=== PATIENT | female | born 1970 | race Caucasian/White ===

== ENCOUNTER 2016-07-28 12:34 | Inpatient (IN) | payer OTHER ==
[2016-07-28 14:00] LABS: EOSINOPHIL 3.2 % (0-4.5); MCHC 27.7 g/dl (32.0-36.0); MEAN CELL VOLUME 58.9 fl (80-96); MEAN PLT VOLUME 9.4 fl (7.5-11.1); NEUTROPHILS 72.1 % (42.8-82.8); PLATELET COUNT 150 K/MM3 (134-434); RDW 19.5 % (11.6-15.6)
[2016-07-28 14:04] LABS: MCH 16.3 pg (25.7-33.7)
[2016-07-28 14:13] LABS: ALBUMIN 3.1 g/dl (3.4-5.0); ANION GAP 9 (8-16); BILIRUBIN,TOTAL 0.4 mg/dL (0.2-1.0); CO2 26 mmol/L (21-32); CREATININE 0.6 mg/dL (0.55-1.02); GLUCOSE,RANDOM 96 mg/dL (74-106); SGOT/AST 17 U/L (15-37); SGPT/ALT 12 U/L (12-78); TOT PROT 6.6 g/dl (6.4-8.2)
[2016-07-28 14:16] LABS: ALK PHOS 96 U/L (45-117)
[2016-07-28 14:19] LABS: INR 1.15 (0.82-1.09); PROTHROMBIN TIME (PATIENT) 12.7 SEC (9.98-11.88)
--- NOTE | 2016-07-28 14:21 | PDOC ---
History of Present Illness <Cesia Mendez - Last Filed: 07/28/16 14:26> - History of Present Illness Initial Comments: 07/28/16 14:26 - History of Present Illness Initial Comments: 07/28/16 14:24 The patient is a 46 year old female with a past medical hx of PCOS and heavy menses who presents to the ED complaining of heavy vaginal bleeding since 07/02 and lightheadedness since yesterday. The patient reports she was in the shower yesterday when she felt as if she was going to pass out. She states she stepped out of the shower and was walking to the kitchen to drink some fluids when she had a syncopal episode. She denies hitting her head. She reports she has been feeling lightheaded, dizzy, dyspnea on exertion. She states she is unable to walk short distances without feeling these symptoms.The patient reports she was seen in the ED one year ago for similar symptoms and required a blood transfusion. The patient denies chest pain, palpitations The patient denies fever, chills The patient denies nausea, vomiting, diarrhea She denies any other complaints at this time, and the remainder the review of systems is negative <Cesia Mendez - Last Filed: 07/28/16 14:25> <Genny Chiang - Last Filed: 07/28/16 14:31> - General Chief Complaint: Syncope/Near Syncope Stated Complaint: VAG BLEEDING Time Seen by Provider: 07/28/16 14:07 Past History <Cesia Mendez - Last Filed: 07/28/16 14:26> - Past Medical History Anemia: Yes Asthma: Yes Disorders: Yes (POLYCYSTIC OVARIAN SYNDROME) Psychiatric Problems: Yes (PANIC ATTACKS, DEPRESSION) - Surgical History Cholecystectomy: Yes GI Surgery: Yes (sleeve) - Reproductive History Is Patient Now?: No Dysfunctional Uterine Bleeding: Yes Polycystic Ovaries: Yes - Immunization History Immunization Up to Date: Yes - Psycho/Social/Smoking Cessation Hx Anxiety: No Suicidal Ideation: No Smoking History: Never smoked Have you smoked in the past 12 months: No Number of Cigarettes Smoked Daily: 0 Information on smoking cessation initiated: No Hx Alcohol Use: No Drug/Substance Use Hx: No Substance Use Type: None <Genny Chiang - Last Filed: 07/28/16 14:31> - Past Medical History Allergies/Adverse Reactions: Allergies Allergy/AdvReac Type Severity Reaction Status Date / Time shellfish derived Allergy Severe Difficulty Verified 06/15/15 09:17 Breathing Review of Systems - Review of Systems Able to Perform ROS?: Yes Comments:: 07/28/16 14:24 Remainder of the review of systems is negative - HPI 12 point review of systems is as per history of present illness and otherwise negative <PallaviantonioCesia - Last Filed: 07/28/16 14:26> *Physical Exam - Vital Signs Last Vital Signs Temp Pulse Resp BP Pulse Ox 98 F 76 20 106/52 97 07/28/16 12:37 07/28/16 12:37 07/28/16 12:37 07/28/16 12:37 07/28/16 12:37 <PallaviantonioCesia - Last Filed: 07/28/16 14:26> - Vital Signs Last Vital Signs Temp Pulse Resp BP Pulse Ox 98 F 76 20 106/52 97 07/28/16 12:37 07/28/16 12:37 07/28/16 12:37 07/28/16 12:37 07/28/16 12:37 - Physical Exam Comments: 07/28/16 14:17 Physical exam Last Vital Signs Temp Pulse Resp BP Pulse Ox 98 F 76 20 106/52 97 07/28/16 12:37 07/28/16 12:37 07/28/16 12:37 07/28/16 12:37 07/28/16 12:37 GENERAL: The patient is awake, alert, and fully oriented, and in no apparent distress. Patient is pale HEAD: Normal with no signs of trauma. EYES: Conjunctiva pale ENT: Because membranes moist NECK: Normal range of motion, supple LUNGS: Breath sounds equal, clear to auscultation bilaterally. No wheezes, and no crackles. HEART: Regular rate and rhythm, normal S1 and S2 without murmur, rub or gallop. ABDOMEN: Soft, nontender, normoactive bowel sounds. No guarding, no rebound. No masses appreciated. EXTREMITIES: Normal range of motion, no edema. No clubbing or cyanosis. No cords, erythema, or tenderness. NEUROLOGICAL: Cranial nerves II through XII grossly intact. Normal speech, normal gait. PSYCH: Normal mood, normal affect. SKIN: Warm, Dry, normal turgor, no rashes or lesions noted. <Genny Chiang - Last Filed: 07/28/16 14:31> ED Treatment Course - LABORATORY CBC & Chemistry Diagram: 07/28/16 13:40 07/28/16 13:40 - ADDITIONAL ORDERS Additional order review: Laboratory Results 07/28/16 07/28/16 13:40 13:40 Sodium 140 Potassium 4.1 Chloride 105 Carbon Dioxide 26 Anion Gap 9 BUN 13 Creatinine 0.6 Creat Clearance w eGFR > 60 Random Glucose 96 Calcium 8.0 L Total Bilirubin 0.4 D AST 17 D ALT 12 Alkaline Phosphatase 96 Total Protein 6.6 Albumin 3.1 L Beta HCG, Quant < 1.0 Crossmatch See Detail 07/28/16 13:40 RBC 2.89 L D MCV 58.9 L MCHC 27.7 L RDW 19.5 H D MPV 9.4 Neutrophils % 72.1 D Lymphocytes % 16.3 D Monocytes % 7.4 Eosinophils % 3.2 Basophils % 1.0 <Cesia Mendez - Last Filed: 07/28/16 14:26> - LABORATORY CBC & Chemistry Diagram: 07/28/16 13:40 07/28/16 13:40 - ADDITIONAL ORDERS Additional order review: Laboratory Results 07/28/16 13:40 Sodium 140 Potassium 4.1 Chloride 105 Carbon Dioxide 26 Anion Gap 9 BUN 13 Creatinine 0.6 Creat Clearance w eGFR > 60 Random Glucose 96 Calcium 8.0 L Total Bilirubin 0.4 D AST 17 D ALT 12 Total Protein 6.6 Albumin 3.1 L 07/28/16 13:40 RBC 2.89 L D MCV 58.9 L MCHC 27.7 L RDW 19.5 H D MPV 9.4 Neutrophils % 72.1 D Lymphocytes % 16.3 D Monocytes % 7.4 Eosinophils % 3.2 Basophils % 1.0 <Genny Chiang - Last Filed: 07/28/16 14:31> Medical Decision Making - Medical Decision Making 07/28/16 14:18 46-year-old female with a past medical history of PCO S with very heavy irregular menses She states that she has required blood transfusions in the past for severe anemia, most recently one year ago 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 [facility] She states that she has had heavy vaginal bleeding since early June She states that she was feeling like she was getting very anemic again, and has had dyspnea on exertion and weakness Yesterday after a shower, she passed out, but did not bang her head She denies any chest pain or palpitations She also has a URI recently She states that she feels like she is getting to the point where she needs a transfusion again Laboratory Results - last 24 hr 07/28/16 07/28/16 07/28/16 13:40 13:40 13:40 WBC 6.0 D RBC 2.89 L D Hgb 4.7 L* D Hct 17.0 L D MCV 58.9 L MCHC 27.7 L RDW 19.5 H D Plt Count 150 MPV 9.4 Neutrophils % 72.1 D Lymphocytes % 16.3 D Monocytes % 7.4 Eosinophils % 3.2 Basophils % 1.0 Sodium 140 Potassium 4.1 Chloride 105 Carbon Dioxide 26 Anion Gap 9 BUN 13 Creatinine 0.6 Creat Clearance w eGFR > 60 Random Glucose 96 Calcium 8.0 L Total Bilirubin 0.4 D AST 17 D ALT 12 Alkaline Phosphatase 96 Total Protein 6.6 Albumin 3.1 L Beta HCG, Quant < 1.0 Crossmatch See Detail Hb 4.7 !! 3 units of PRBCs ordered 07/28/16 14:30 EKG Normal sinus rhythm 73, normal axis Normal AV and IV conduction time Normal QTC Essentially normal EKG Impression-severe anemia and syncope due to heavy vaginal bleeding <Genny Chiang - Last Filed: 07/28/16 14:31> *DC/Admit/Observation/Transfer - Attestations Scribe Attestion: 07/28/16 14:24 Documentation prepared by Cesia Mendez, acting as director medical economics for Genny Chiang MD/DO. <Cesia Mendez - Last Filed: 07/28/16 14:26> - Discharge Dispostion Admit: Yes <Genny Chiang - Last Filed: 07/28/16 14:31> Diagnosis at time of Disposition: Severe anemia, Menorrhagia, Syncope
--- NOTE | 2016-07-28 16:05 | EKG ---
Test Reason : Blood Pressure : / mmHG Vent. Rate : 073 BPM Atrial Rate : 073 BPM P-R Int : 108 ms QRS Dur : 086 ms QT Int : 386 ms P-R-T Axes : 044 036 033 degrees QTc Int : 425 ms SINUS RHYTHM WITH SHORT TN OTHERWISE NORMAL ECG NO PREVIOUS ECGS AVAILABLE Confirmed by FANI SANON MD ([id number]) on 07/28/2016 4:04:34 PM Referred By: Confirmed By:FANI SANON MD
[2016-07-28 17:22] VITALS: BMI 43.8
[2016-07-28 17:47] LABS: ANISOCYTOSIS 1+; HYPOCHROMIA 3+; MICROCYTOSIS 3+
--- NOTE | 2016-07-28 18:39 | HP ---
CHIEF COMPLAINT: PCP: [facility] OBGYN : DR white HISTORY OF PRESENT ILLNESS: 46 YF y/o Significant PMH PCOS, Menorragia on Depo (Last shot 06/2015), gastric sleeve 2014 with 190lb weight loss, presents to ER with complaints of syncope. patient reports being in shower when felt dizzy, sob, palpitations, diaphoretic walked to the kitchen and LOC. patient recalls fall, pre fall, and post fall, LOC for seconds, not hit her head. patient reports 3 weeks of vaginal bleeding "episode". Stats that her cycles comes with pain and feel hormonally off. is been using to overnight pads every 2-3/hour with clots and mild cramping. requiring Depo-Provera injections which abates the vaginal bleed for one year. patient report gets these episodes annually when the shot is the depo is wearing off. while on Depo-she report more regular periods although still have 2-3 pads per hour with shorter duration (5 days) and no clots. patient Patient was seen by her FLOORLEADER was prescribed Provera which did not resolve the vaginal bleed since that time. Patient states [facility] FLOORLEADER doctor was not able to provide Depo-Provera which is what instigated patient's return to this emergency department. was seen last year for same symptoms Mamadou's (06/15/15)transfused with 2 units PRBC and recommended depo injection. currently reports SOB. denies dizziness, CP, N/V/D/C, fevers, chills, nausea, change in vision, abdominal pain, headache , focal neurological weakness. to note: reached menarche at 10 years of age, menorrgia started in 20's, baseline HB 9. ER course was notable for: (1)Hb 4.7, normal sinus EKG no st t wave changes (2)neg B HCG, Recent Travel: PAST MEDICAL HISTORY: PCOS, no known history of fibroids?, PAST SURGICAL HISTORY: c section, dnC's Social History: Smoking:no Alcohol:occasional Drugs: no Family History: Allergies: NKDA shellfish derived Allergy (Severe, Verified 07/28/16 15:07) Difficulty Breathing HOME MEDICATIONS: Home Medications Medication Instructions Recorded Ascorbate Calcium [Vitamin C] 1,000 mg PO DAILY 07/28/16 Biotin 1 mg PO DAILY 07/28/16 Cholecalciferol (Vitamin D3) 800 unit PO DAILY 07/28/16 [Vitamin D3 -] Multivitamins [Tab-A-Vit -] 1 tab PO DAILY 07/28/16 REVIEW OF SYSTEMS CONSTITUTIONAL: generalized weakness, weight change Absent: fever, chills, diaphoresis, malaise, loss of appetite, HEENT: Absent: rhinorrhea, nasal congestion, throat pain, throat swelling, difficulty swallowing, mouth swelling, ear pain, eye pain, visual changes CARDIOVASCULAR: syncope,lightheadedness, Absent: chest pain, palpitations, irregular heart rate, peripheral edema RESPIRATORY: shortness of breath, Absent: cough, dyspnea with exertion, orthopnea, wheezing, stridor, hemoptysis GASTROINTESTINAL: Absent: abdominal pain, abdominal distension, nausea, vomiting, diarrhea, constipation, melena, hematochezia GENITOURINARY: Absent: dysuria, frequency, urgency, hesitancy, hematuria, flank pain, genital pain MUSCULOSKELETAL: Absent: myalgia, arthralgia, joint swelling, back pain, neck pain SKIN: Absent: rash, itching, pallor HEMATOLOGIC/IMMUNOLOGIC: Absent: easy bleeding, easy bruising, lymphadenopathy, frequent infections ENDOCRINE: Absent: unexplained weight gain, unexplained weight loss, heat intolerance, cold intolerance NEUROLOGIC: Absent: headache, focal weakness or paresthesias, dizziness, unsteady gait, seizure, mental status changes, bladder or bowel incontinence PSYCHIATRIC: Absent: anxiety, depression, suicidal or homicidal ideation, hallucinations. PHYSICAL EXAMINATION Vital Signs - 24 hr 07/28/16 07/28/16 07/28/16 15:19 16:12 17:08 Temperature 97.7 F 97.7 F Pulse Rate 73 73 Pulse Rate [ 79 Apical] Respiratory 18 20 20 Rate Blood Pressure 103/61 103/61 Blood Pressure 105/69 [Right Arm] O2 Sat by Pulse 99 100 99 Oximetry (%) GENERAL: Awake, alert, and fully oriented, in no acute distress, sitting up comfortably, on the telephone HEAD: Normal with no signs of trauma. EYES: Pupils equal, round and reactive to light, extraocular movements intact, sclera anicteric, conjunctiva clear. No lid lag. EARS, NOSE, THROAT: Ears normal, nares patent, oropharynx clear without exudates. Moist mucous membranes. NECK: Normal range of motion, supple without lymphadenopathy, JVD, or masses. LUNGS: Breath sounds equal, clear to auscultation bilaterally. No wheezes, and no crackles. No accessory muscle use. HEART: Regular rate and rhythm, normal S1 and S2 without murmur, rub or gallop. ABDOMEN: large Obese, Soft, nontender, not distended, normoactive bowel sounds, no guarding, no rebound, no masses. No hepatomegaly or splenomegaly. MUSCULOSKELETAL: Normal range of motion at all joints. No bony deformities or tenderness. No CVA tenderness. LOWER EXTREMITIES: 2+ pulses, warm, well-perfused. No calf tenderness. No peripheral edema. NEUROLOGICAL: Cranial nerves II-XII intact. Normal speech. PSYCHIATRIC: Cooperative. Good eye contact. Appropriate mood and affect. SKIN: Warm, dry, normal turgor, no rashes or lesions noted. ASSESSMENT/PLAN: 46 YF y/o Significant PMH PCOS, Menorragia on Depo (Last shot 06/2015), gastric sleeve 2014 with 190lb weight loss, presents to ER with complaints of syncope and heavy menses, found to have severe anemia. Acute Severe anemia: Hb 4.7, no symptoms other than SOB, 2/2 to menorrhagia. Type and screen PRBC 3 units, with protocol Vitals q2 hours large bore IV UA Chronic Menorrhagia Pad count OBGYN consult will Consider Vaginal US, pelvic US awaiting FLOORLEADER input on depo inj or further treatment or procedures Syncope 2/2 to Menorrhagia currently asymptomatic, vital normal, FEN regular diet oral hydration replete electrolytes as needed. dispo: med surge will evaluate in AM. Visit type - Emergency Visit Emergency Visit: Yes ED Registration Date: 07/28/16 Care time: The patient presented to the Emergency Department on the above date and was hospitalized for further evaluation of their emergent condition. - New Patient This patient is new to me today: Yes Date on this admission: 07/28/16 - Critical Care Critical Care patient: No
--- NOTE | 2016-07-28 19:08 | PN ---
Teaching Attending Note Name of Resident: Marin Tao ATTENDING PHYSICIAN STATEMENT I saw and evaluated the patient. I reviewed the resident's note and discussed the case with the resident. I agree with the resident's findings and plan as documented. SUBJECTIVE: This is a 46-year-old woman with a history of menorrhagia, PCOS, anemia who comes to the ER complaining of dizziness, palpitations, shortness of breath. She has a history of anemia and says once a year she requires transfusion. OBJECTIVE: Vital Signs Period Temp Pulse Resp BP Sys/Rodriguez Pulse Ox Last 24 Hr 97.7 F-98 F 73-79 18-20 103-106/52-69 97-100 HEART: S1 S2, RRR LUNGS: Clear ABDOMEN: Obese, soft, non-tender, non-distended, normal BS EXTREMITIES: No edema ASSESSMENT AND PLAN: This is a 46-year-old woman with a history of anemia, menorrhagia, PCOS, obesity , gastric sleeve who comes to the ER with dizziness, palpitations, shortness of breath. 1. Acute blood loss anemia secondary to menorrhagia on chronic anemia - Patient is symptomatic with dizziness, shortness of breath - Transfuse 3 units PRBCs - Monitor hemoglobin - Shipmaster consult for menorrhagia 2. Syncope secondary to severe anemia 3. Polycystic ovarian disease
[2016-07-28] MEDS ORDERED: ALPRAZolam 0.25 MG TABLET PO ONE (20:28)
--- NOTE | 2016-07-28 21:17 | CON.OBG ---
Consult Consult Specialty:: pediatric dentist Reason for Consultation:: menometrorrhagia, anemia - History of Present Illness Chief Complaint: vaginal bleeding History of Present Illness: 46 yo f with hx of prolonged vaginal bleeding for more than a month, paxton was admitted for sever anemia, with dizziness and syncope, she has been Depoprovera on and off which has controlled her bleeding, states hr senior technical architect declined to give her depo , hx of gastric sleeves, with significant wt loss - History Source History Provided By: Patient Limitations to Obtaining History: No Limitations - Past Medical History Pulmonary: Yes: Asthma ...LMP: 07/02/16 ...: No Heme/Onc: Yes: Anemia - Past Surgical History Additional Surgical History: gastric sleeves - Alcohol/Substance Use Hx Alcohol Use: No - Smoking History Smoking history: Never smoked Have you smoked in the past 12 months: No Aproximately how many cigarettes per day: 0 - Social History History of Recent Travel: No Home Medications - Allergies Allergies/Adverse Reactions: Allergies Allergy/AdvReac Type Severity Reaction Status Date / Time shellfish derived Allergy Severe Difficulty Verified 07/28/16 15:07 Breathing - Home Medications Home Medications: Ambulatory Orders Ascorbate Calcium [Vitamin C] 1,000 mg PO DAILY 07/28/16 Biotin 1 mg PO DAILY 07/28/16 Cholecalciferol (Vitamin D3) [Vitamin D3 -] 800 unit PO DAILY 07/28/16 Multivitamins [Tab-A-Vit -] 1 tab PO DAILY 07/28/16 Review of Systems - Review of Systems Constitutional: reports: Weakness Eyes: reports: No Symptoms HENT: reports: No Symptoms Neck: reports: No Symptoms Cardiovascular: reports: No Symptoms Respiratory: reports: SOB Genitourinary: reports: No Symptoms, Vaginal Bleeding Breasts: reports: No Symptoms Reported Musculoskeletal: reports: No Symptoms Integumentary: reports: No Symptoms Neurological: reports: No Symptoms Endocrine: reports: No Symptoms Hematology/Lymphatic: reports: No Symptoms Psychiatric: reports: No Symptoms Physical Exam-GROUNDWATER CONSULTANT Vital Signs: Vital Signs Temperature 97.7 F 07/28/16 17:08 Pulse Rate 73 07/28/16 17:08 Respiratory Rate 20 07/28/16 17:08 Blood Pressure 103/61 07/28/16 17:08 O2 Sat by Pulse Oximetry (%) 99 07/28/16 17:08 Constitutional: Yes: Obese Eyes: Yes: WNL HENT: Yes: WNL Neck: Yes: WNL Cardiovascular: Yes: WNL Respiratory: Yes: WNL Gastrointestinal: Yes: WNL, Soft, Abdomen, Obese Renal/: Yes: WNL Pelvis: Yes: WNL External Genitalia: Yes: Normal Vaginal Exam: Yes: Bleeding Cervix: Yes: Normal Uterus: Yes: Enlarged, Lumpy, Tender Adnexa: Not Palpable: Left, Right Assessment/Plan advise TVS, r/o myoma, check EM. D&C discussed. jatin expalined , advised d&c followed by caleb
[2016-07-28] MEDS ORDERED: ALBUTEROL SO4 2.5/IPRATROPIUM 0.5 INH SOL 3 ML VIAL.NEB. NEB PRN (22:18)
[2016-07-28] MEDS ORDERED: ALBUTEROL SO4 2.5/IPRATROPIUM 0.5 INH SOL 3 ML VIAL.NEB. NEB ONE (22:35)
[2016-07-29] MEDS ORDERED: ceFAZolin SODIUM 1 GM VIAL IVPB ONE
[2016-07-29 06:05] VITALS: TEMP 98.1
[2016-07-29 08:25] LABS: BASOPHIL 0.9 % (0-2.0); EOSINOPHIL 4.1 % (0-4.5); MCH 20.3 pg (25.7-33.7); MCHC 30.8 g/dl (32.0-36.0); MEAN CELL VOLUME 65.9 fl (80-96); MEAN PLT VOLUME 9.3 fl (7.5-11.1); NEUTROPHILS 66.6 % (42.8-82.8); PLATELET COUNT 117 K/MM3 (134-434); RDW 27.6 % (11.6-15.6); WHITE BLOOD COUNT 5.3 K/mm3 (4.0-10.0)
[2016-07-29 08:29] LABS: INR 1.15 (0.82-1.09); PROTHROMBIN TIME (PATIENT) 12.7 SEC (9.98-11.88)
[2016-07-29 08:31] LABS: ACTIVATED PTT 28.8 SECONDS (26.9-34.4)
[2016-07-29] MEDS ORDERED: ALBUTEROL SO4 0.083% IH SOL 2.5 MG/3 ML VIAL.NEB. NEB PRN (08:37)
[2016-07-29 10:18] LABS: MCH 20.3 pg (25.7-33.7); MCHC 30.7 g/dl (32.0-36.0); MEAN CELL VOLUME 66.1 fl (80-96); MEAN PLT VOLUME 9.7 fl (7.5-11.1); PLATELET COUNT 125 K/MM3 (134-434); RDW 26.8 % (11.6-15.6); WHITE BLOOD COUNT 5.6 K/mm3 (4.0-10.0)
[2016-07-29 10:49] LABS: CALCIUM 7.9 mg/dL (8.5-10.1); CREATININE 0.5 mg/dL (0.55-1.02)
[2016-07-29 11:11] LABS: URINE APPEARANCE SLCLOUDY; URINE BILIRUBIN NEGATIVE (NEGATIVE); URINE COLOR YELLOW; URINE GLUCOSE (UA) NEGATIVE (NEGATIVE); URINE KETONE NEGATIVE (NEGATIVE); URINE NITRITE POSITIVE (NEGATIVE); URINE UROBILINOGEN 2.0 E.U/dl E.U./dl (0.2-1.0)
[2016-07-29 11:20] LABS: URINE BLOOD 3+ (NEGATIVE); URINE LEUK ESTERASE TRACE (NEGATIVE); URINE PROTEIN 1+ (NEGATIVE)
[2016-07-29 11:40] LABS: URINE BACTERIA RARE /hpf (NONE SEEN); URINE MUCUS FEW; URINE RBC 40 /hpf (0-3); URINE WBC 3 /hpf (3-5)
--- NOTE | 2016-07-29 12:38 | PN ---
Physical Exam: SUBJECTIVE: Patient seen and examined thsi am. patient reports more energy and reports skin feels and looks much better, sob improved. denies fevers, chils,sob, palpitation, cp, n/v/d/c. patient reports that she has a history of asthma and currently has mild wheezing. patient is low risk for for intermediate risk procedure. she is medicably optimized for procedure. patietn to OR today for D&C OBJECTIVE: Vital Signs Period Temp Pulse Resp BP Sys/Rodriguez Pulse Ox Last 24 Hr 97.7 F-98.1 F 73-79 16-20 103-129/52-75 99-100 GENERAL: The patient is awake, alert, and fully oriented, in no acute distress. HEAD: Normal with no signs of trauma. EYES: PERRL, extraocular movements intact, sclera anicteric, conjunctiva clear. No ptosis. ENT: Ears normal, nares patent, oropharynx clear without exudates, moist mucous membranes. NECK: Trachea midline, full range of motion, supple. LUNGS: Breath sounds equal, clear to auscultation bilaterally, no wheezes, no crackles, no accessory muscle use. HEART: Regular rate and rhythm, S1, S2 without murmur, rub or gallop. ABDOMEN: Soft, nontender, nondistended, normoactive bowel sounds, no guarding, no rebound, no hepatosplenomegaly, no masses. EXTREMITIES: 2+ pulses, warm, well-perfused, no edema. NEUROLOGICAL: Cranial nerves II through XII grossly intact. Normal speech, gait not observed. PSYCH: Normal mood, normal affect. SKIN: Warm, dry, normal turgor, no rashes or lesions noted Laboratory Results - last 24 hr 07/28/16 07/29/16 07/29/16 18:30 06:45 07:00 WBC 5.3 RBC 3.22 L Hgb 6.6 L* D Hct 21.3 L D MCV 65.9 L MCHC 30.8 L RDW 27.6 H Plt Count 117 L D MPV 9.3 Neutrophils % 66.6 Lymphocytes % 18.7 Monocytes % 9.7 Eosinophils % 4.1 Basophils % 0.9 INR PTT (Actin FS) Sodium Potassium Chloride Carbon Dioxide Anion Gap BUN Creatinine Random Glucose Calcium Phosphorus Magnesium 2.0 Urine Color Yellow Urine Appearance Slcloudy Urine pH 6.0 Ur Specific [place] 1.025 Urine Protein 1+ H Urine Glucose (UA) Negative Urine Ketones Negative Urine Blood 3+ H Urine Nitrite Positive Urine Bilirubin Negative Urine Urobilinogen 2.0 e.u/dl H Ur Leukocyte Esterase Trace H Urine RBC 40 Urine WBC 3 Ur Epithelial Cells Rare Urine Bacteria Rare Urine Mucus Few 07/29/16 07/29/16 07/29/16 07:00 07:00 09:15 WBC 5.6 RBC 3.45 L Hgb 7.0 L Hct 22.8 L MCV 66.1 L MCHC 30.7 L RDW 26.8 H Plt Count 125 L MPV 9.7 Neutrophils % Lymphocytes % Monocytes % Eosinophils % Basophils % INR 1.15 H PTT (Actin FS) 28.8 Sodium Potassium Chloride Carbon Dioxide Anion Gap BUN Creatinine Random Glucose Calcium Phosphorus 3.0 Magnesium Urine Color Urine Appearance Urine pH Ur Specific [place] Urine Protein Urine Glucose (UA) Urine Ketones Urine Blood Urine Nitrite Urine Bilirubin Urine Urobilinogen Ur Leukocyte Esterase Urine RBC Urine WBC Ur Epithelial Cells Urine Bacteria Urine Mucus 07/29/16 09:15 WBC RBC Hgb Hct MCV MCHC RDW Plt Count MPV Neutrophils % Lymphocytes % Monocytes % Eosinophils % Basophils % INR PTT (Actin FS) Sodium 143 Potassium 4.1 Chloride 109 H Carbon Dioxide 26 Anion Gap 8 BUN 10 D Creatinine 0.5 L Random Glucose 80 Calcium 7.9 L Phosphorus Magnesium Urine Color Urine Appearance Urine pH Ur Specific [place] Urine Protein Urine Glucose (UA) Urine Ketones Urine Blood Urine Nitrite Urine Bilirubin Urine Urobilinogen Ur Leukocyte Esterase Urine RBC Urine WBC Ur Epithelial Cells Urine Bacteria Urine Mucus Active Medications Generic Name Dose Route Start Last Admin Trade Name Olga PRN Reason Stop Dose Admin Albuterol/Ipratropium 1 amp 07/28/16 22:18 Duoneb - NEB Q6H PRN SHORTNESS OF BREATH ASSESSMENT/PLAN: patient seen and examed-
[2016-07-29] MEDS ORDERED: medroxyPROGESTERone ACET 150 MG/1 ML VIAL IM ONE (14:11)
--- NOTE | 2016-07-29 14:18 | PN ---
Progress Note (short form) - Note Progress Note: patient taken to OR for D&C ,anesthesia declined to put her sleep because of asthma and wheezing, procedure was cancelled. will give one dose of depo to stop bleeding, importance [facility] andgetting tissue pathology r/o EM hyperplasia or cancer discussed. patient will make apt with her ob /byn in 2 weeks for follow up
[2016-07-29 14:30] VITALS: BP 144/72; PULSE 79
--- NOTE | 2016-07-29 14:48 | DS ---
Physical Exam: SUBJECTIVE:Patient seen and examined this am. patient reports more energy and reports skin feels and looks much better, sob improved. denies fevers, chils,sob, palpitation, cp, n/v/d/c. patient reports that she has a history of asthma and currently has mild wheezing. patient is low risk for for intermediate risk procedure. she is medicably optimized for procedure. patient taken to OR for D&C ,anesthesia declined to put her sleep because of asthma and wheezing, procedure was cancelled. OBGYN will give one dose of depo to stop bleeding. patient reports having a d&C at [facility], with biopsy being negative for neuplasia or cancer one to on and a half years ago. I discussed the importance of follow up with her library circulation department chief in [facility], to Getting tissue pathology r/o EM hyperplasia or cancer. we also discussed that she is at high risk of cancer as she is over weight and on hormone therapy. patient will make apt with her ob /byn in 2 weeks for follow up. OBJECTIVE: Vital Signs Period Temp Pulse Resp BP Sys/Rodriguez Pulse Ox Last 24 Hr 97.7 F-98.1 F 73-79 16-20 103-144/52-75 99-100 PHYSICAL EXAM GENERAL: Awake, alert, and fully oriented, in no acute distress, sitting up comfortably, HEAD: Normal with no signs of trauma. EYES: Pupils equal, round and reactive to light, extraocular movements intact, sclera anicteric, conjunctiva clear. No lid lag. EARS, NOSE, THROAT: Ears normal, nares patent, oropharynx clear without exudates. Moist mucous membranes. NECK: Normal range of motion, supple without lymphadenopathy, JVD, or masses. LUNGS: Breath sounds equal, clear to auscultation bilaterally. No wheezes, and no crackles. No accessory muscle use. HEART: Regular rate and rhythm, normal S1 and S2 without murmur, rub or gallop. ABDOMEN: large Obese, Soft, nontender, not distended, normoactive bowel sounds, no guarding, no rebound, no masses. No hepatomegaly or splenomegaly. MUSCULOSKELETAL: Normal range of motion at all joints. No bony deformities or tenderness. No CVA tenderness. LOWER EXTREMITIES: 2+ pulses, warm, well-perfused. No calf tenderness. No peripheral edema. NEUROLOGICAL: Cranial nerves II-XII intact. Normal speech. PSYCHIATRIC: Cooperative. Good eye contact. Appropriate mood and affect. SKIN: Warm, dry, normal turgor, no rashes or lesions noted. LABS Laboratory Results - last 24 hr 07/28/16 07/29/16 07/29/16 18:30 06:45 07:00 WBC 5.3 RBC 3.22 L Hgb 6.6 L* D Hct 21.3 L D MCV 65.9 L MCHC 30.8 L RDW 27.6 H Plt Count 117 L D MPV 9.3 Neutrophils % 66.6 Lymphocytes % 18.7 Monocytes % 9.7 Eosinophils % 4.1 Basophils % 0.9 INR PTT (Actin FS) Sodium Potassium Chloride Carbon Dioxide Anion Gap BUN Creatinine Random Glucose Calcium Phosphorus Magnesium 2.0 Urine Color Yellow Urine Appearance Slcloudy Urine pH 6.0 Ur Specific [place] 1.025 Urine Protein 1+ H Urine Glucose (UA) Negative Urine Ketones Negative Urine Blood 3+ H Urine Nitrite Positive Urine Bilirubin Negative Urine Urobilinogen 2.0 e.u/dl H Ur Leukocyte Esterase Trace H Urine RBC 40 Urine WBC 3 Ur Epithelial Cells Rare Urine Bacteria Rare Urine Mucus Few 07/29/16 07/29/16 07/29/16 07:00 07:00 09:15 WBC 5.6 RBC 3.45 L Hgb 7.0 L Hct 22.8 L MCV 66.1 L MCHC 30.7 L RDW 26.8 H Plt Count 125 L MPV 9.7 Neutrophils % Lymphocytes % Monocytes % Eosinophils % Basophils % INR 1.15 H PTT (Actin FS) 28.8 Sodium Potassium Chloride Carbon Dioxide Anion Gap BUN Creatinine Random Glucose Calcium Phosphorus 3.0 Magnesium Urine Color Urine Appearance Urine pH Ur Specific [place] Urine Protein Urine Glucose (UA) Urine Ketones Urine Blood Urine Nitrite Urine Bilirubin Urine Urobilinogen Ur Leukocyte Esterase Urine RBC Urine WBC Ur Epithelial Cells Urine Bacteria Urine Mucus 07/29/16 09:15 WBC RBC Hgb Hct MCV MCHC RDW Plt Count MPV Neutrophils % Lymphocytes % Monocytes % Eosinophils % Basophils % INR PTT (Actin FS) Sodium 143 Potassium 4.1 Chloride 109 H Carbon Dioxide 26 Anion Gap 8 BUN 10 D Creatinine 0.5 L Random Glucose 80 Calcium 7.9 L Phosphorus Magnesium Urine Color Urine Appearance Urine pH Ur Specific [place] Urine Protein Urine Glucose (UA) Urine Ketones Urine Blood Urine Nitrite Urine Bilirubin Urine Urobilinogen Ur Leukocyte Esterase Urine RBC Urine WBC Ur Epithelial Cells Urine Bacteria Urine Mucus HOSPITAL COURSE: Date of Admission:07/28/16 Date of Discharge: 07/29/16 46 YF y/o Significant PMH PCOS, Menorragia on Depo (Last shot 06/2015), gastric sleeve 2014 with 190lb weight loss, presents to ER with complaints of syncope. patient reports being in shower when felt dizzy, sob, palpitations, diaphoretic walked to the kitchen and LOC. patient recalls fall, pre fall, and post fall, LOC for seconds, not hit her head. patient reports 3 weeks of vaginal bleeding "episode". Stats that her cycles comes with pain and feel hormonally off. is been using to overnight pads every 2-3/hour with clots and mild cramping. requiring Depo-Provera injections which abates the vaginal bleed for one year. patient report gets these episodes annually when the shot is the depo is wearing off. while on Depo-she report more regular periods although still have 2-3 pads per hour with shorter duration (5 days) and no clots. patient Patient was seen by her [employer] was prescribed Provera which did not resolve the vaginal bleed since that time. Patient [facility] [employer] doctor was not able to provide Depo-Provera which is what instigated patient's return to this emergency department. was seen last year for same symptoms [facility] (06/15/15)transfused with 2 units PRBC and recommended depo injection. currently reports SOB. denies dizziness, CP, N/V/D/C, fevers, chills, nausea, change in vision, abdominal pain, headache , focal neurological weakness. to note: reached menarche at 10 years of age, menorrgia started in 20's, baseline HB 9. 46 YF y/o Significant PMH PCOS, Menorragia on Depo (Last shot 06/2015), gastric sleeve 2014 with 190lb weight loss, presents to ER with complaints of syncope and heavy menses, found to have severe anemia. pateint found to have Syncope 2/ 2 to Acute Severe anemia 2/2 Chronic Menorrhagia Hb 4.7, no symptoms other than SOB, 2/2 to menorrhagia. patient was transfues 3 units of PRBC HB increased to 7. patient reports that she has a history of asthma and currently has mild wheezing. patient is low risk for for intermediate risk procedure. she is medicably optimized for procedure. patient taken to OR for D&C ,anesthesia declined to put her sleep because of asthma and wheezing, procedure was cancelled. OBGYN will gave one dose of depo to stop bleeding. patient reports having a d&C at [facility], with biopsy being negative for neuplasia or cancer one to on and a half years ago. I discussed the importance of follow up with her ob/ coil builder in [facility] [place], to Getting tissue pathology r/o EM hyperplasia or cancer. we also discussed that she is at high risk of cancer as she is over weight and on hormone therapy. patient will make apt with her ob /byn in 2 weeks for follow up. pateint d/c home and is currently asymptomatic, vital normal, no fevers chills, N/v/d/C, cP, SOB, FOCAL NEUROLOGICAL DEFICIT. Minutes to complete discharge: 35 Discharge Summary Reason For Visit: MENORRHAGIA,SEVERE ANEMIA,SYNCOPE Current Active Problems Menorrhagia (Acute) Severe anemia (Acute) Syncope (Acute) Condition: Stable - Instructions Diet, Activity, Other Instructions: You are being discharged home. Please call and follow up with your primary care provider in one week to assess your health. Please call and follow up with your [employer] at [facility] or any other OBGYN of your choice to in two week. I included a Dr Willingham's information you can contact him as well. you were given one dose of depo to stop bleeding. as per our discussion that you are at higher risk of cancer as you are over weight and on hormone therapy. you reported you have had a d&C at [facility], with biopsy being negative for neuplasia or cancer about one to on and a half years ago. it is imperative that you call and see your OBGYN, as per our discussion it is very importance of follow up with her library circulation department chief, to Getting another tissue pathology to rule out EM hyperplasia or cancer. Please take over the counter Tylenol as directed for pain. please take your medications as prescribed. Please reports to the ER or the nearest ER if you have any persistent and worsening symptoms, chest pain, palpitation, fevers, chills, night sweats, Nausea, Vomiting, severe headache dizziness or loss of consciousness. Referrals: Kirt Beard MD [Staff Physician] - 2 Weeks Disposition: HOME - Home Medications Comprehensive Discharge Medication List: Ambulatory Orders Ascorbate Calcium [Vitamin C] 1,000 mg PO DAILY 07/28/16 Biotin 1 mg PO DAILY 07/28/16 Cholecalciferol (Vitamin D3) [Vitamin D3 -] 800 unit PO DAILY 07/28/16 Multivitamins [Tab-A-Vit -] 1 tab PO DAILY 07/28/16 This patient is new to me today: Yes Date on this admission: 07/29/16 Emergency Visit: No Critical Care patient: No - Discharge Referral Referred to [facility] Med P.C.: No
== END 2016-07-29 17:31 | disposition home or self-care (01) | DRG 812 ==
LOC: JER 12:34 → JERBED 14:39 → J6S 16:00
PROVIDERS: ADMIT Internal Medicine; ATTEND Internal Medicine
PROC: 30233N1 Transfusion of Nonautologous Red Blood Cells into Peripheral Vein, Percutaneous Approach (ICD-10-PCS; principal; 2016-07-28)
DX: D62 Acute posthemorrhagic anemia (principal); Z68.41 Body mass index [BMI] 40.0-44.9, adult; N92.0 Excessive and frequent menstruation with regular cycle; E28.2 Polycystic ovarian syndrome; J45.909 Unspecified asthma, uncomplicated; E66.9 Obesity, unspecified; Z53.09 Procedure and treatment not carried out because of other contraindication; Z98.84 Bariatric surgery status
CPT/HCPCS: 36415; 36430; 76830-TC; 80048; 80053; 81003; 81015; 83735; 84100; 84702; 85025; 85027; 85610; 85730; 86850; 86900; 86901; 86922; 93005; 93010; 94640; 99285-25; P9058

== ENCOUNTER 2016-08-30 22:49 | Emergency (ER) | payer OTHER ==
[2016-08-30 23:12] VITALS: BP 100/74; PULSE 69; TEMP 98.1; BMI 44.4
--- NOTE | 2016-08-31 00:40 | PDOC ---
History of Present Illness <Beatrice Rangel - Last Filed: 08/31/16 00:40> - General History Source: Patient Exam Limitations: No Limitations - History of Present Illness Initial Comments: 08/31/16 00:41 Patient is a 46 year old female with a significant past medical history of PCOS who presents to the ED with right hand pain and swelling. Patient notes that she was in [facility] as a box 14x14 containing a chair fell from top shelf and she was able to move out of the way but her hand was caught in the fall of the box. She reports right thumb pain and knuckle swelling. Patient notes her LMP was 08/06/16. She denies fever, chills, nausea, vomiting, diarrhea, vision changes, headache, blurry vision. <Winnie Haque - Last Filed: 08/31/16 00:46> - General Chief Complaint: Injury Stated Complaint: INJURY Time Seen by Provider: 08/30/16 23:01 Past History - Past Medical History Anemia: Yes Asthma: Yes Disorders: Yes (POLYCYSTIC OVARIAN SYNDROME) Psychiatric Problems: Yes (PANIC ATTACKS, DEPRESSION) - Surgical History Cholecystectomy: Yes GI Surgery: Yes (sleeve) - Reproductive History Dysfunctional Uterine Bleeding: Yes Polycystic Ovaries: Yes - Immunization History Immunization Up to Date: Yes - Psycho/Social/Smoking Cessation Hx Anxiety: No Suicidal Ideation: No Smoking History: Never smoked Have you smoked in the past 12 months: No Number of Cigarettes Smoked Daily: 0 Information on smoking cessation initiated: No Hx Alcohol Use: No Drug/Substance Use Hx: No Substance Use Type: None Hx Substance Use Treatment: No <Beatrice Rangel - Last Filed: 08/31/16 00:40> <Winnie Haque - Last Filed: 08/31/16 00:46> - Past Medical History Allergies/Adverse Reactions: Allergies Allergy/AdvReac Type Severity Reaction Status Date / Time shellfish derived Allergy Severe Difficulty Verified 08/30/16 23:12 Breathing Home Medications: Ambulatory Orders Ascorbate Calcium [Vitamin C] 1,000 mg PO DAILY 07/28/16 Biotin 1 mg PO DAILY 07/28/16 Cholecalciferol (Vitamin D3) [Vitamin D -] 800 unit PO DAILY 07/28/16 Multivitamins [Multivit ([facility] Formulary)] 1 tab PO DAILY 07/28/16 Albuterol Sulfate Inhaler - [Ventolin HFA Inhaler -] 1 - 2 inh PO Q4H PRN #1 inhaler 07/29/16 Ferrous Sulfate [Feosol] 325 mg PO DAILY #30 tablet 07/29/16 Review of Systems - Review of Systems Able to Perform ROS?: Yes Comments:: 08/31/16 00:42 CONSTITUTIONAL: Absent: fever, chills, diaphoresis, generalized weakness, malaise, loss of appetite HEENT: Absent: rhinorrhea, nasal congestion, throat pain, throat swelling, difficulty swallowing, mouth swelling, ear pain, eye pain, visual Changes CARDIOVASCULAR: Absent: chest pain, syncope, palpitations, irregular heart rate, lightheadedness , peripheral edema RESPIRATORY: Absent: cough, shortness of breath, dyspnea with exertion, orthopnea, wheezing, stridor, hemoptysis GASTROINTESTINAL: Absent: abdominal pain, abdominal distension, nausea, vomiting, diarrhea, constipation, melena, hematochezia GENITOURINARY: Absent: dysuria, frequency, urgency, hesitancy, hematuria, flank pain, genital pain MUSCULOSKELETAL: Present: right hand pain Absent: myalgia, arthralgia, joint swelling SKIN: Absent: rash, itching, pallor HEMATOLOGIC/IMMUNOLOGIC: Absent: easy bleeding, easy bruising, lymphadenopathy, frequent infections ENDOCRINE: Absent: unexplained weight gain, unexplained weight loss, heat intolerance, cold intolerance NEUROLOGIC: Absent: headache, focal weakness or paresthesias, dizziness, unsteady gait, seizure, mental status changes, bladder or bowel incontinence PSYCHIATRIC: Absent: anxiety, depression, suicidal or homicidal ideation, hallucinations. <Winnie Haque - Last Filed: 08/31/16 00:46> *Physical Exam - Vital Signs Last Vital Signs Temp Pulse Resp BP Pulse Ox 98.1 F 69 18 100/74 100 08/30/16 23:00 08/30/16 23:00 08/30/16 23:00 08/30/16 23:00 08/30/16 23:00 <Beatrice Rangel - Last Filed: 08/31/16 00:40> - Vital Signs Last Vital Signs Temp Pulse Resp BP Pulse Ox 98.1 F 69 18 100/74 100 08/30/16 23:00 08/30/16 23:00 08/30/16 23:00 08/30/16 23:00 08/30/16 23:00 - Physical Exam Comments: 08/31/16 00:43 GENERAL: Well developed, well nourished. Awake and alert. No acute distress. HEENT: Normocephalic, atraumatic. PERRLA, EOMI. No conjunctival pallor. Sclera are non- icteric. Moist mucous membranes. Oropharynx is clear. NECK: Supple. Full ROM. No JVD. Carotid pulses 2+ and symmetric, without bruits. No thyromegaly. No lymphadenopathy. CARDIOVASCULAR: Regular rate and rhythm. No murmurs, rubs, or gallops. Distal pulses are 2+ and symmetric. PULMONARY: No evidence of respiratory distress. Lungs clear to auscultation bilaterally. No wheezing, rales or rhonchi. ABDOMINAL: Soft. Non-tender. Non-distended. No rebound or guarding. No organomegaly. Normoactive bowel sounds. MUSCULOSKELETAL Normal range of motion at all joints. No bony deformities or tenderness. No CVA tenderness. EXTREMITIES: +right thumb tenderness, no tenderness over right snuffbox. No cyanosis. No clubbing. No edema. No calf tenderness. SKIN: Warm and dry. Normal capillary refill. No rashes. No jaundice. NEUROLOGICAL: Alert, awake, appropriate. Cranial nerves 2-12 intact. No deficits to light touch and temperature in face, upper extremities and lower extremities. No motor deficits in the in face, upper extremities and lower extremities. Normoreflexic in the upper and lower extremities. Normal speech. PSYCHIATRIC: Cooperative. Good eye contact. Appropriate mood and affect. <Winnie Haque - Last Filed: 08/31/16 00:46> ED Treatment Course - RADIOLOGY Radiology Studies Ordered: Category Date Time Status HAND- RIGHT [RAD] Stat Radiology 08/30/16 23:08 Taken <Beatrice Rangel - Last Filed: 08/31/16 00:40> - RADIOLOGY Radiology Studies Ordered: 08/31/16 00:45 THIS IS A PRELIMINARY REPORT FROM [facility]NA[facility] EXAM: X-RAY RIGHT HAND No acute fracture or dislocation. No radiopaque foreign body. THIS DOCUMENT HAS BEEN ELECTRONICALLY SIGNED Audra Vasquez M.D. <Winnie Haque - Last Filed: 08/31/16 00:46> *DC/Admit/Observation/Transfer <Beatrice Rangel - Last Filed: 08/31/16 00:40> - Attestations Scribe Attestion: 08/31/16 00:44 Documentation prepared by FAZAL Blunt, acting as medical examiner for Beatrice Rangel MD. <Winnie Haque - Last Filed: 08/31/16 00:46> Diagnosis at time of Disposition: Hand injury Qualifiers: Encounter type: initial encounter Laterality: right Qualified Code(s): S69.91XA - Unspecified injury of right wrist, hand and finger(s), initial encounter - Discharge Dispostion Disposition: HOME Condition at time of disposition: Stable - Patient Instructions Printed Discharge Instructions: DI for Hand Injury Additional Instructions: please take tylenol or motrin for pain
== END 2016-08-31 00:46 | disposition home or self-care (01) ==
LOC: JER 22:49
DX: S69.81XA Other specified injuries of right wrist, hand and finger(s), initial encounter (principal); W20.8XXA Other cause of strike by thrown, projected or falling object, initial encounter; Y93.89 Activity, other specified; Y92.512 Supermarket, store or market as the place of occurrence of the external cause; Y99.8 Other external cause status
CPT/HCPCS: 73130-TC-RT; 99281-25

== ENCOUNTER 2016-12-26 10:06 | Inpatient (IN) | payer OTHER ==
--- NOTE | 2016-12-26 10:21 | PDOC ---
History of Present Illness - General Chief Complaint: Pain, Acute Stated Complaint: ABD PAIN, ANXIETY ATTACK Time Seen by Provider: 12/26/16 10:20 History Source: Patient Exam Limitations: No Limitations - History of Present Illness Initial Comments: 12/26/16 10:21 CHIEF COMPLAINT: Anxiety HISTORY OF PRESENT ILLNESS: This is a 46 year old female with a history of menorrhagia and symptomatic anemia requiring transfusions, asthma, and anxiety/ panic (one prior psychiatric hospitalization, formerly on benzos/SSRI and in therapy, no issues for the past 4 years) who presents ambulatory to the ED with her partner complaining of "anxiety attack." She reports that this week is the anniversary of her infant daughter's and that she has been "fixated" on this. She also reports right-sided abdominal pain and vomiting "bile" for several days. Surgical history: gastric sleeve, cholecystectomy Jul 2016 u/s showed enlarged fibroid uterus Patient receives primary and pediatrician managing partner care at [facility] REVIEW OF SYSTEMS: GENERAL/CONSTITUTIONAL: No fever or chills. No weakness. No weight change. HEAD, EYES, EARS, NOSE AND THROAT: No change in vision. No ear pain or discharge. No sore throat. CARDIOVASCULAR: No chest pain or palpitations. RESPIRATORY: No cough, wheezing, or shortness of breath. GASTROINTESTINAL: Nausea/vomiting, abdominal pain.. GENITOURINARY: No dysuria, frequency, or change in urination. Heavy vaginal bleeding from end of October through approximately one week ago. MUSCULOSKELETAL: No joint or muscle swelling or pain. No neck or back pain. SKIN: No rash or easy bruising. NEUROLOGIC: No headache, vertigo, loss of consciousness, or loss of sensation. PSYCHIATRIC: See HPI. ENDOCRINE: No increased thirst. No abnormal weight change. HEMATOLOGIC/LYMPHATIC: No anemia, easy bleeding, or history of blood clots. ALLERGIC/IMMUNOLOGIC: No hives or skin allergy. No latex allergy. PHYSICAL EXAM: GENERAL: The patient is awake, alert, and fully oriented, very anxious. ENT: Pupils equal, round and reactive to light, extraocular movements intact, sclera anicteric, conjunctiva clear. Neck supple. LUNGS: Tachypneic/hyperventilating. Clear to auscultation bilaterally. Normal excursion. No respiratory distress or use of accessory muscles. CV: RRR, S1/S2, no MRG. Cap refill < 2 sec. ABDOMEN: Soft, non-distended, mild RLQ tenderness to gentle palpation. EXTREMITIES: Normal range of motion, no edema. NEUROLOGICAL: Normal speech, normal gait. CN II-XII grossly intact. PSYCH: Anxious affect, tearful. SKIN: Warm, dry, normal turgor, no rashes or lesions noted. Past History - Past Medical History Allergies/Adverse Reactions: Allergies Allergy/AdvReac Type Severity Reaction Status Date / Time shellfish derived Allergy Severe Difficulty Verified 12/26/16 10:11 Breathing morphine Allergy Verified 12/26/16 13:46 Home Medications: Ambulatory Orders Ascorbate Calcium [Vitamin C] 1,000 mg PO DAILY 07/28/16 Biotin 1 mg PO DAILY 07/28/16 Cholecalciferol (Vitamin D3) [Vitamin D -] 800 unit PO DAILY 07/28/16 Multivitamins [Multivit ([facility] Formulary)] 1 tab PO DAILY 07/28/16 Albuterol Sulfate Inhaler - [Ventolin HFA Inhaler -] 1 - 2 inh PO Q4H PRN #1 inhaler 07/29/16 Ferrous Sulfate [Feosol] 325 mg PO DAILY #30 tablet 07/29/16 Anemia: Yes Asthma: Yes Disorders: Yes (POLYCYSTIC OVARIAN SYNDROME) Psychiatric Problems: Yes (PANIC ATTACKS, DEPRESSION) - Surgical History Cholecystectomy: Yes GI Surgery: Yes (sleeve) - Reproductive History Dysfunctional Uterine Bleeding: Yes Polycystic Ovaries: Yes - Immunization History Immunization Up to Date: Yes - Psycho/Social/Smoking Cessation Hx Anxiety: No Suicidal Ideation: No Smoking History: Never smoked Have you smoked in the past 12 months: No Number of Cigarettes Smoked Daily: 0 Hx Alcohol Use: Yes (OCCASIONALLY) Drug/Substance Use Hx: No Substance Use Type: Alcohol Hx Substance Use Treatment: No *Physical Exam - Vital Signs Last Vital Signs Temp Pulse Resp BP Pulse Ox 98.0 F 90 20 119/61 100 12/26/16 10:08 12/26/16 10:08 12/26/16 10:08 12/26/16 10:08 12/26/16 10:08 Heart Score/ECG Review - History History: Slightly suspicious - Electrocardiogram EKG: Normal - Age Age: </= 45 - Risk Factors Risk Factors Heart Score: Yes Hx Obesity Based on the list above the patient has:: 1-2 risk factors - Troponin Troponin: </= normal limit - Score Heart Score - Total: 1 - ECG Intrepretation Comment:: 12/26/16 11:47 NSR at 84bpm, no ST or T wave changes ED Treatment Course - LABORATORY CBC & Chemistry Diagram: 12/26/16 11:28 12/26/16 11:31 Medical Decision Making - Medical Decision Making 12/26/16 11:00 A/P: 46 year old female with anxiety/panic, also with RLQ pain/tenderness. 1. Xanax 0.25mg po 2. UA, urine culture, urine 3. Basic labs 4. TV u/s to r/o cyst, torsion 5. Re-examine; consider CTAP to r/o appendicitis 12/26/16 12:28 WBC 13.4 with 91.7% neutrophils H/H 7.0/24.5 12/26/16 14:41 TV u/s: Retroflexed, fibroid uterus. 2.6cm simple right ovarian cyst vs dominant follicle. 12/26/16 17:56 Patient reported generalized itching after contrast administration. No hives noted. No oropharyngeal edema. No wheezing or respiratory distress. 25mg Benadryl given IVP. 12/26/16 18:48 Notified by radiologist that CTAP is consistent with perforated appendicitis. No abscess is noted. Will transfuse in anticipation of possible surgery. Zosyn ordered. Discussed with Dr. Mireles. Accepted for admission by Dr. Samaniego. *DC/Admit/Observation/Transfer Diagnosis at time of Disposition: Appendicitis with perforation - Discharge Dispostion Admit: Yes
[2016-12-26] MEDS ORDERED: ALPRAZolam 0.25 MG TABLET PO ONE (10:29)
[2016-12-26] MEDS ORDERED: ALPRAZolam 0.25 MG TABLET ONE (11:00)
[2016-12-26] MEDS: morphine CARPU-JECT 4 MG/1 ML DISP.SYRIN IVPUSH ONE ×2 (11:22→13:45)
[2016-12-26 11:56] LABS: BASOPHIL 0.2 % (0-2.0); MCHC 28.6 g/dl (32.0-36.0); NEUTROPHILS 91.7 % (42.8-82.8); PLATELET COUNT 164 K/MM3 (134-434); RDW 19.2 % (11.6-15.6); WHITE BLOOD COUNT 13.4 K/mm3 (4.0-10.0)
[2016-12-26 12:02] LABS: MCH 17.2 pg (25.7-33.7)
--- NOTE | 2016-12-26 12:29 | EKG ---
Test Reason : Blood Pressure : / mmHG Vent. Rate : 084 BPM Atrial Rate : 084 BPM P-R Int : 132 ms QRS Dur : 086 ms QT Int : 396 ms P-R-T Axes : 046 026 023 degrees QTc Int : 467 ms NORMAL SINUS RHYTHM NORMAL ECG WHEN COMPARED WITH ECG OF 28-JUL-2016 14:25, NO SIGNIFICANT CHANGE WAS FOUND Confirmed by EZEQUIEL MEANS MD ([id number]) on 12/26/2016 12:29:11 PM Referred By: Confirmed By:EZEQUIEL MEANS MD
[2016-12-26 12:35] LABS: ALBUMIN 3.4 g/dl (3.4-5.0); ALK PHOS 106 U/L (45-117); ANION GAP 9 (8-16); BILIRUBIN,TOTAL 1.2 mg/dL (0.2-1.0); CALCIUM 9.1 mg/dL (8.5-10.1); CO2 22 mmol/L (21-32); CREATININE 0.6 mg/dL (0.55-1.02); GLUCOSE,RANDOM 118 mg/dL (74-106); SGOT/AST 10 U/L (15-37); SGPT/ALT 13 U/L (12-78); TOT PROT 7.3 g/dl (6.4-8.2)
[2016-12-26 13:11] LABS: ANISOCYTOSIS 1+; HYPOCHROMIA 3+; MICROCYTOSIS 1+; POLYCHROMASIA 1+
[2016-12-26] MEDS ORDERED: KETOROLAC TROMETHAMINE 30 MG/1 ML VIAL IVPUSH ONE (13:49)
[2016-12-26 14:12] LABS: URINE APPEARANCE CLEAR; URINE BILIRUBIN NEGATIVE (NEGATIVE); URINE BLOOD NEGATIVE (NEGATIVE); URINE COLOR YELLOW; URINE GLUCOSE (UA) 1+ (NEGATIVE); URINE KETONE 2+ (NEGATIVE); URINE LEUK ESTERASE NEGATIVE (NEGATIVE); URINE NITRITE NEGATIVE (NEGATIVE)
[2016-12-26 14:13] LABS: URINE PROTEIN 1+ (NEGATIVE)
[2016-12-26 14:20] LABS: URINE MUCUS FEW; URINE RBC 2 /hpf (0-3); URINE WBC 2 /hpf (3-5)
[2016-12-26] MEDS ORDERED: SODIUM CHLORIDE 1,000 ML IV SCH ×2 (14:30→20:30)
[2016-12-26] MEDS ORDERED: KETOROLAC TROMETHAMINE 30 MG/1 ML VIAL ONE (14:34)
[2016-12-26] MEDS ORDERED: PIPERACILLIN/TAZOB 4.5 GM/100 ML PRE-DOCKED IVPB ONE (18:42)
[2016-12-26] MEDS ORDERED: PIPERACILLIN/TAZOB 4.5 GM 100 ML IVPB ONE (20:03)
--- NOTE | 2016-12-26 20:32 | HP ---
Admitting History and Physical - Primary Care Physician PCP: Cande Samaniego - Admission History of Present Illness: -46 year old female with a history of menorrhagia and symptomatic anemia requiring transfusions, asthma, and anxiety/panic (one prior psychiatric hospitalization, formerly on benzos/SSRI and in therapy, no issues for the past 4 years) who presents ambulatory to the ED with her partner complaining of "anxiety attack." She reports that this week is the anniversary of her infant daughter's and that she has been "fixated" on this. She also reports right -sided abdominal pain and vomiting "bile" for several days. - Past Medical History Pulmonary: Yes: Asthma ...LMP: 07/02/16 Heme/Onc: Yes: Anemia - Smoking History Smoking history: Never smoked Have you smoked in the past 12 months: No Aproximately how many cigarettes per day: 0 - Alcohol/Substance Use Hx Alcohol Use: Yes (OCCASIONALLY) - Social History History of Recent Travel: No Home Medications - Allergies Allergies/Adverse Reactions: Allergies Allergy/AdvReac Type Severity Reaction Status Date / Time shellfish derived Allergy Severe Difficulty Verified 12/26/16 10:11 Breathing morphine Allergy Verified 12/26/16 13:46 - Home Medications Home Medications: Ambulatory Orders Ascorbate Calcium [Vitamin C] 1,000 mg PO DAILY 07/28/16 Biotin 1 mg PO DAILY 07/28/16 Cholecalciferol (Vitamin D3) [Vitamin D -] 800 unit PO DAILY 07/28/16 Multivitamins [Multivit ([facility] Formulary)] 1 tab PO DAILY 07/28/16 Albuterol Sulfate Inhaler - [Ventolin HFA Inhaler -] 1 - 2 inh PO Q4H PRN #1 inhaler 07/29/16 Ferrous Sulfate [Feosol] 325 mg PO DAILY #30 tablet 07/29/16 Physical Examination Vital Signs: Vital Signs Temperature 100.5 F H 12/26/16 20:16 Pulse Rate 93 H 12/26/16 20:16 Respiratory Rate 16 12/26/16 20:16 Blood Pressure 90/58 12/26/16 20:16 O2 Sat by Pulse Oximetry (%) 100 12/26/16 20:17 Constitutional: Yes: Calm HENT: Yes: Atraumatic Neck: Yes: Supple Cardiovascular: Yes: Regular Rate and Rhythm Respiratory: Yes: CTA Bilaterally Gastrointestinal: Yes: Hypoactive Bowel Sounds, Tenderness (mild rlq) Extremities: Yes: WNL Edema: No Neurological: Yes: Alert, Oriented Imaging - Results Cat Scan: Report Reviewed Problem List - Problems (1) Appendicitis with perforation Assessment/Plan: npo ivf iv abx id consult surgery consult Code(s): K35.2 - ACUTE APPENDICITIS WITH GENERALIZED PERITONITIS (2) Menorrhagia Code(s): N92.0 - EXCESSIVE AND FREQUENT MENSTRUATION WITH REGULAR CYCLE Qualifiers: Menorrahagia type: with irregular cycle Qualified Code(s): N92.1 - Excessive and frequent menstruation with irregular cycle (3) Severe anemia Assessment/Plan: 1 u prbc given in er Code(s): D64.9 - ANEMIA, UNSPECIFIED Assessment/Plan Laboratory Tests 12/26/16 12/26/16 12/26/16 11:28 11:31 13:50 WBC 13.4 H D RBC 4.08 Hgb 7.0 L Hct 24.5 L MCV 60.0 L MCH 17.2 L MCHC 28.6 L RDW 19.2 H D Plt Count 164 D MPV 9.0 Neutrophils % 91.7 H D Lymphocytes % 3.2 L D Monocytes % 4.9 Eosinophils % 0.0 D Basophils % 0.2 Polychromasia 1+ Hypochromic-Microcytic 3+ Anisocytosis 1+ Microcytosis 1+ Macrocytosis Few Morphology Comment Slide scanned Sodium 138 Potassium 3.6 Chloride 107 Carbon Dioxide 22 Anion Gap 9 BUN 7 D Creatinine 0.6 Creat Clearance w eGFR > 60 Random Glucose 118 H D Calcium 9.1 Total Bilirubin 1.2 H D AST 10 L D ALT 13 Alkaline Phosphatase 106 Total Protein 7.3 Albumin 3.4 Urine Color Yellow Urine Appearance Clear Urine pH 5.0 Ur Specific [place] 1.025 Urine Protein 1+ H Urine Glucose (UA) 1+ H Urine Ketones 2+ H Urine Blood Negative Urine Nitrite Negative Urine Bilirubin Negative Urine Urobilinogen 2.0 H Ur Leukocyte Esterase Negative Urine RBC 2 Urine WBC 2 Ur Epithelial Cells Rare Urine Mucus Few Urine HCG, Qual Negative Crossmatch 12/26/16 19:15 WBC RBC Hgb Hct MCV MCH MCHC RDW Plt Count MPV Neutrophils % Lymphocytes % Monocytes % Eosinophils % Basophils % Polychromasia Hypochromic-Microcytic Anisocytosis Microcytosis Macrocytosis Morphology Comment Sodium Potassium Chloride Carbon Dioxide Anion Gap BUN Creatinine Creat Clearance w eGFR Random Glucose Calcium Total Bilirubin AST ALT Alkaline Phosphatase Total Protein Albumin Urine Color Urine Appearance Urine pH Ur Specific [place] Urine Protein Urine Glucose (UA) Urine Ketones Urine Blood Urine Nitrite Urine Bilirubin Urine Urobilinogen Ur Leukocyte Esterase Urine RBC Urine WBC Ur Epithelial Cells Urine Mucus Urine HCG, Qual Crossmatch See Detail Active Medications Generic Name Dose Route Start Last Admin Trade Name Freq PRN Reason Stop Dose Admin Acetaminophen 650 mg 12/26/16 21:41 12/26/16 22:29 Tylenol Suppository - [place] 650 mg Q6H PRN Administration FEVER OR PAIN Lactated Ringer's 1,000 mls @ 125 mls/hr 12/27/16 10:00 Lactated Ringers Solution IV ASDIR DESMOND Piperacillin Sod/Tazobactam 100 mls @ 200 mls/hr 12/27/16 18:00 Sod 4.5 gm/ Dextrose IVPB Q8H-IV DESMOND Protocol Ketorolac Tromethamine 30 mg 12/26/16 21:19 12/27/16 03:55 Toradol Injection - IVPUSH 12/31/16 21:18 30 mg Q6H PRN Administration PAIN
[2016-12-26] MEDS ORDERED: HYDROmorphone HCL CARPU-JECT 1 MG/1 ML DISP.SYRIN IVPB PRN (21:17)
[2016-12-26] MEDS ORDERED: ACETAMINOPHEN 1000 MG/100 ML VIAL (NON FORMULARY) IVPB PRN (21:18)
[2016-12-26] MEDS ORDERED: ACETAMINOPHEN 650 MG SUPP.RECT PR PRN (21:41)
[2016-12-26] MEDS: KETOROLAC TROMETHAMINE 30 MG/1 ML VIAL IVPUSH PRN (21:56)
[2016-12-27 02:31] VITALS: BMI 49.5
[2016-12-27] MEDS: KETOROLAC TROMETHAMINE 30 MG/1 ML VIAL IVPUSH PRN ×2 (03:55→20:26)
[2016-12-27] MEDS ORDERED: PIPERACILLIN/TAZOB 4.5 GM 100 ML IVPB ONE ×2 (04:30→12:00)
[2016-12-27] MEDS ORDERED: PT OWN MED DRAWER 7, Y5N ONE (05:42)
--- NOTE | 2016-12-27 10:00 | CONSULT ---
Consult Consult Specialty:: General Surgery Referred by:: Dr. Samaniego Reason for Consultation:: ruptured appendicitis - History of Present Illness Chief Complaint: RLQ pain History of Present Illness: 46yo morbidly obese F s/p gastric sleeve with 140# weight loss, asthma, anxiety and panic disorders, menorrhagia with h/o blood transfusions, presented to ER with complaints of anxiety and panic as well as RLQ pain associated with bilious vomiting and anorexia. She has chronic RLQ pain related to menorrhagia and ovarian issues and thought the RLQ pain that started again Monday was related to this. She was also having significant anxiety and panic, which tends to occur when her pain returns and also related to the anniversary of her daughter's . She describes not eating during times of anxiety and panic, and has not had solid food since , attributed to this. She felt better Monday night from a pain standpoint, but Monday she started having bilious vomiting. The pain has persisted, and she came to the ER concerned about both the pain and anxiety. She sees a private psychologist as an outpatient. In the ER, wbc was elevated 13.4 with left shift, and she had microcytic anemia with H/H of 724. CT scan revealed appendicitis with contained perforation without discrete abscess but with phlegmonous changes. She has been admitted to medicine, made NPO and started on IV fluids and antibiotics. She was transfused 1 unit PRBC overnight. This morning, she c/o dry mouth and RLQ pain, which also radiates down her right leg. She would be amenable to seeing psychiatry while hospitalized to assist with managing her anxiety and panic. No current nausea or vomiting. She had chills and then a fever last night of 102.8 and was given Tylenol. Had some ice chips yesterday. - History Source History Provided By: Patient, Medical Record Limitations to Obtaining History: No Limitations - Past Medical History Pulmonary: Yes: Asthma Gastrointestinal: Yes: Other (morbid obesity) Hepatobiliary: Yes: Other (had open андрей in for "burst gallbladder") Reproductive: Yes: Other (menorrhagia - gets yearly depo shots, last episode was in October with 2 wks of bleeding) ...LMP: 07/02/16 ...: No Psych: Yes: Anxiety, Depression, Panic Musculoskeletal: Yes: Chronic low back pain (after weight loss) Additional Medical History: h/o multiple broken bones including both ankles in past - Past Surgical History Past Surgical History: Yes: Bariatric Surgery (gastric sleeve - lost 140 lbs), Cholecystectomy Additional Surgical History: multiple D&Cs - Alcohol/Substance Use Hx Alcohol Use: Yes (OCCASIONALLY) History of Substance Use: reports: None - Smoking History Smoking history: Never smoked Have you smoked in the past 12 months: No Aproximately how many cigarettes per day: 0 - Social History History of Recent Travel: No Home Medications - Allergies Allergies/Adverse Reactions: Allergies Allergy/AdvReac Type Severity Reaction Status Date / Time shellfish derived Allergy Severe Difficulty Verified 12/26/16 10:11 Breathing morphine Allergy Verified 12/26/16 13:46 - Home Medications Home Medications: Ambulatory Orders Ascorbate Calcium [Vitamin C] 1,000 mg PO DAILY 07/28/16 Biotin 1 mg PO DAILY 07/28/16 Cholecalciferol (Vitamin D3) [Vitamin D -] 800 unit PO DAILY 07/28/16 Multivitamins [Multivit ([facility] Formulary)] 1 tab PO DAILY 07/28/16 Albuterol Sulfate Inhaler - [Ventolin HFA Inhaler -] 1 - 2 inh PO Q4H PRN #1 inhaler 07/29/16 Ferrous Sulfate [Feosol] 325 mg PO DAILY #30 tablet 07/29/16 Family Disease History - Family Disease History Family History: Unremarkable Family Disease History: Diabetes: Grandparent (grandfather), Heart Disease: Father ( of [place] ~40), Other: Mother ( in 40s) Review of Systems - Review of Systems Constitutional: reports: Chills (subjective Monday), Fever (subjective Monday), Loss of Appetite (when she has panic attacks/anxiety, has not eaten food since ) Eyes: denies: Blurred Vision, Double Vision HENT: reports: Hearing Loss (decreased hearing overall). denies: Difficult Swallowing, Throat Pain Neck: denies: Swollen Glands, Tenderness Cardiovascular: reports: Palpitations (with panic attacks sometimes). denies: Chest Pain Respiratory: reports: SOB (with panic attacks). denies: Cough, Wheezing Gastrointestinal: reports: Abdominal Pain (h/o RLQ pain with uterine/ovarian issues), Constipation (usually goes every few days), Nausea (Monday with hpi), Vomiting (Monday with hpi). denies: Diarrhea Genitourinary: denies: Burning, Dysuria Musculoskeletal: reports: Back Pain (after weight loss). denies: Joint Pain Integumentary: denies: Change in Color, Rash Neurological: denies: Dizziness, Headache Endocrine: denies: Unexplained Weight Gain, Unexplained Weight Loss Psychiatric: reports: Anxiety, Depression, Panic Physical Exam Vital Signs: Vital Signs Temperature 98.8 F 12/27/16 06:45 Pulse Rate 89 12/27/16 06:45 Respiratory Rate 20 12/27/16 06:45 Blood Pressure 166/66 12/27/16 06:45 O2 Sat by Pulse Oximetry (%) 100 12/27/16 03:26 Constitutional: Yes: No Distress, Calm, Anxious, Obese Eyes: Yes: Conjunctiva Clear, EOM Intact HENT: Yes: Atraumatic, Normocephalic Cardiovascular: Yes: Regular Rate and Rhythm. No: Murmur Respiratory: Yes: Regular, CTA Bilaterally Gastrointestinal: Yes: Soft, Abdomen, Obese, Tenderness (RLQ with RUQ and LLQ less, referred to RLQ, no rebound or guarding). No: Distention, Tenderness, Rebound ...Rectal Exam: Yes: Deferred Renal/: No: CVA Tenderness - Left, CVA Tenderness - Right Musculoskeletal: No: Joint Stiffness, Joint Swelling Extremities: No: Cool, Cyanosis Edema: Yes (left ankle mild) Peripheral Pulses WNL: Yes Integumentary: No: Jaundice, Rash Neurological: Yes: Alert, Oriented Psychiatric: Yes: Alert, Oriented, Other (anxious) Labs: CBCD WBC 17.0 K/mm3 (4.0-10.0) H 12/27/16 10:10 RBC 4.17 M/mm3 (3.60-5.2) 12/27/16 10:10 Hgb 7.7 GM/dL (10.7-15.3) L 12/27/16 10:10 Hct 26.6 % (32.4-45.2) L 12/27/16 10:10 MCV 63.9 fl (80-96) L 12/27/16 10:10 MCHC 28.8 g/dl (32.0-36.0) L 12/27/16 10:10 RDW 23.0 % (11.6-15.6) H D 12/27/16 10:10 Plt Count 145 K/MM3 (134-434) 12/27/16 10:10 MPV 9.3 fl (7.5-11.1) 12/27/16 10:10 CMP Sodium 141 mmol/L (136-145) 12/27/16 10:10 Potassium 3.6 mmol/L (3.5-5.1) 12/27/16 10:10 Chloride 109 mmol/L (98-107) H 12/27/16 10:10 Carbon Dioxide 21 mmol/L (21-32) 12/27/16 10:10 Anion Gap 11 (8-16) 12/27/16 10:10 BUN 17 mg/dL (7-18) D 12/27/16 10:10 Creatinine 0.9 mg/dL (0.55-1.02) D 12/27/16 10:10 Creat Clearance w eGFR > 60 (>60) 12/27/16 10:10 Calcium 8.3 mg/dL (8.5-10.1) L 12/27/16 10:10 Total Bilirubin 2.0 mg/dL (0.2-1.0) H D 12/27/16 10:10 AST 13 U/L (15-37) L D 12/27/16 10:10 ALT 12 U/L (12-78) 12/27/16 10:10 Alkaline Phosphatase 99 U/L (45-117) 12/27/16 10:10 Total Protein 6.6 g/dl (6.4-8.2) 12/27/16 10:10 Albumin 2.9 g/dl (3.4-5.0) L 12/27/16 10:10 Imaging - Results Cat Scan: Report Reviewed (appendicitis with contained perforation, no gross free air, no janina abscess), Image Reviewed Problem List - Problems (1) Appendicitis with perforation Assessment/Plan: contained perforation without drainable abscess or gross free air agree with antibiotics as per ID - explained to patient to expect ~5 days of IV abx at least NPO except essential meds with sips H2O until NO pain and NO tenderness when able to resume po and tolerating, can change to po antibiotics to complete course after discharge (total 10-14 days/as per ID) discussed potential need for surgery, laparoscopic or open appendectomy, and that would only pursue if clinical condition deteriorates/fails conservative therapy (e.g., free perforation, acute abdomen). if drainable abscess forms, she can have IR drainage discussed risks of operation including but not limited to bleeding, infection, injury to intestines or intraabdominal structures, stump leak, intraabdominal abscess, need for further procedures. also discussed that operation in face of acute perforation with phlegmon carries higher risks of complications. plan is for NPO/IVF/antibiotics until tenderness resolves, and to pursue interval appendectomy as elective procedure after discharge. pt understands and agrees with plan. Code(s): K35.2 - ACUTE APPENDICITIS WITH GENERALIZED PERITONITIS (2) Menorrhagia Assessment/Plan: pt had transfusion, H/H up a little today needs to follow up with [employer] outpatient Code(s): N92.0 - EXCESSIVE AND FREQUENT MENSTRUATION WITH REGULAR CYCLE Qualifiers: Menorrahagia type: with irregular cycle Qualified Code(s): N92.1 - Excessive and frequent menstruation with irregular cycle (3) Anemia due to chronic blood loss Assessment/Plan: see above consider continuing MVI in IV bag daily pt can resume home supplements and iron when taking po again Code(s): D50.0 - IRON DEFICIENCY ANEMIA SECONDARY TO BLOOD LOSS (CHRONIC) (4) Morbid obesity with BMI of 45.0-49.9, adult Code(s): E66.01 - MORBID (SEVERE) OBESITY DUE TO EXCESS CALORIES Z68.42 - BODY MASS INDEX (BMI) 45.0-49.9, ADULT (5) History of bariatric surgery Code(s): Z98.84 - BARIATRIC SURGERY STATUS
[2016-12-27 10:29] LABS: BASOPHIL 0.2 % (0-2.0); EOSINOPHIL 0.1 % (0-4.5); MCHC 28.8 g/dl (32.0-36.0); MEAN CELL VOLUME 63.9 fl (80-96); MEAN PLT VOLUME 9.3 fl (7.5-11.1); NEUTROPHILS 92.3 % (42.8-82.8); PLATELET COUNT 145 K/MM3 (134-434)
[2016-12-27 10:39] LABS: MCH 18.4 pg (25.7-33.7)
[2016-12-27 11:14] LABS: ALBUMIN 2.9 g/dl (3.4-5.0); ANION GAP 11 (8-16); CALCIUM 8.3 mg/dL (8.5-10.1); CO2 21 mmol/L (21-32); CREATININE 0.9 mg/dL (0.55-1.02); GLUCOSE,RANDOM 96 mg/dL (74-106); SGOT/AST 13 U/L (15-37); SGPT/ALT 12 U/L (12-78); TOT PROT 6.6 g/dl (6.4-8.2)
[2016-12-27 11:15] LABS: ALK PHOS 99 U/L (45-117)
--- NOTE | 2016-12-27 14:53 | CONSULT ---
Consult Consult Specialty:: infectious diseases Reason for Consultation:: abd pain - History of Present Illness Chief Complaint: abd pain History of Present Illness: 46yo morbidly obese F s/p gastric sleeve , asthma, anxiety and panic disorders, menorrhagia with h/o blood transfusions, complaints of anxiety and panic as well as RLQ pain associated with bilious vomiting and anorexia. patient came to the hospital was worked up and found to ahve perforated appendicitis according to surgery the plan is to manage him conservatively patient main complaint is abdominal pain patient reports she si very uncomfortable - History Source History Provided By: Patient Limitations to Obtaining History: No Limitations - Past Medical History Pulmonary: Yes: Asthma Gastrointestinal: Yes: Other (morbid obesity) Hepatobiliary: Yes: Other (had open андрей in for "burst gallbladder") ...LMP: 07/02/16 ...: No Psych: Yes: Anxiety, Depression, Panic Musculoskeletal: Yes: Chronic low back pain (after weight loss) Additional Medical History: h/o multiple broken bones including both ankles in past - Past Surgical History Past Surgical History: Yes: Bariatric Surgery (gastric sleeve - lost 140 lbs), Cholecystectomy Additional Surgical History: multiple D&Cs - Alcohol/Substance Use Hx Alcohol Use: Yes (OCCASIONALLY) History of Substance Use: reports: None - Smoking History Smoking history: Never smoked Have you smoked in the past 12 months: No Aproximately how many cigarettes per day: 0 - Social History History of Recent Travel: No Home Medications - Allergies Allergies/Adverse Reactions: Allergies Allergy/AdvReac Type Severity Reaction Status Date / Time shellfish derived Allergy Severe Difficulty Verified 12/26/16 10:11 Breathing morphine Allergy Verified 12/26/16 13:46 - Home Medications Home Medications: Ambulatory Orders Ascorbate Calcium [Vitamin C] 1,000 mg PO DAILY 07/28/16 Biotin 1 mg PO DAILY 07/28/16 Cholecalciferol (Vitamin D3) [Vitamin D -] 800 unit PO DAILY 07/28/16 Multivitamins [Multivit ([facility] Formul[facility])] 1 tab PO DAILY 07/28/16 Albuterol Sulfate Inhaler - [Ventolin HFA Inhaler -] 1 - 2 inh PO Q4H PRN #1 inhaler 07/29/16 Ferrous Sulfate [Feosol] 325 mg PO DAILY #30 tablet 07/29/16 Family Disease History - Family Disease History Family Disease History: Diabetes: Grandparent (grandfather), Heart Disease: Father ( of [place] ~40), Other: Mother ( in 40s) Review of Systems - Review of Systems Constitutional: reports: No Symptoms Eyes: reports: No Symptoms HENT: reports: No Symptoms Neck: reports: No Symptoms Cardiovascular: reports: No Symptoms Respiratory: reports: No Symptoms Gastrointestinal: reports: Abdominal Pain Genitourinary: reports: No Symptoms Musculoskeletal: reports: No Symptoms Integumentary: reports: No Symptoms Neurological: reports: No Symptoms Endocrine: reports: No Symptoms Hematology/Lymphatic: reports: No Symptoms Psychiatric: reports: No Symptoms Physical Exam Vital Signs: Vital Signs Temperature 98.5 F 12/27/16 14:00 Pulse Rate 88 12/27/16 14:00 Respiratory Rate 20 12/27/16 14:00 Blood Pressure 100/52 12/27/16 10:00 O2 Sat by Pulse Oximetry (%) 100 12/27/16 03:26 Constitutional: Yes: Obese (morbid obesity) Eyes: Yes: Conjunctiva Clear HENT: Yes: Atraumatic, Normocephalic Neck: Yes: Supple Cardiovascular: Yes: Regular Rate and Rhythm Respiratory: Yes: Regular, CTA Bilaterally Gastrointestinal: Yes: Normal Bowel Sounds, Soft Musculoskeletal: Yes: WNL Extremities: Yes: WNL Neurological: Yes: Alert, Oriented Psychiatric: Yes: Alert, Oriented Labs: CBC, BMP 12/27/16 10:10 12/27/16 10:10 Imaging - Results Cat Scan: Report Reviewed, Image Reviewed Ultrasound: Report Reviewed, Image Reviewed Assessment/Plan Problem List - Problems (1) Appendicitis with perforation Code(s): K35.2 - ACUTE APPENDICITIS WITH GENERALIZED PERITONITIS (2) Menorrhagia Code(s): N92.0 - EXCESSIVE AND FREQUENT MENSTRUATION WITH REGULAR CYCLE Qualifiers: Menorrahagia type: with irregular cycle Qualified Code(s): N92.1 - Excessive and frequent menstruation with irregular cycle (3) Anemia due to chronic blood loss Code(s): D50.0 - IRON DEFICIENCY ANEMIA SECONDARY TO BLOOD LOSS (CHRONIC) (4) Morbid obesity with BMI of 45.0-49.9, adult Code(s): E66.01 - MORBID (SEVERE) OBESITY DUE TO EXCESS CALORIES Z68.42 - BODY MASS INDEX (BMI) 45.0-49.9, ADULT (5) History of bariatric surgery Code(s): Z98.84 - BARIATRIC SURGERY STATUS plan will start zosyn npo as per surgery hydration
--- NOTE | 2016-12-27 15:28 | PN ---
Progress Note, Physician History of Present Illness: pain better - Current Medication List Current Medications: Active Medications Acetaminophen (Tylenol Suppository -) 650 mg MO Q6H PRN PRN Reason: FEVER OR PAIN Last Admin: 12/26/16 22:29 Dose: 650 mg Lactated Ringer's (Lactated Ringers Solution) 1,000 mls @ 125 mls/hr IV ASDIR DESMOND Piperacillin Sod/Tazobactam (Sod 4.5 gm/ Dextrose) 100 mls @ 200 mls/hr IVPB Q8H-IV DESMOND PRN Reason: Protocol Ketorolac Tromethamine (Toradol Injection -) 30 mg IVPUSH Q6H PRN PRN Reason: PAIN Stop: 12/31/16 21:18 Last Admin: 12/27/16 03:55 Dose: 30 mg - Objective Vital Signs: Vital Signs Temperature 98.5 F 12/27/16 14:00 Pulse Rate 88 12/27/16 14:00 Respiratory Rate 20 12/27/16 14:00 Blood Pressure 100/52 12/27/16 10:00 O2 Sat by Pulse Oximetry (%) 100 12/27/16 03:26 Constitutional: Yes: No Distress HENT: Yes: Atraumatic Neck: Yes: Supple Cardiovascular: Yes: Regular Rate and Rhythm Respiratory: Yes: CTA Bilaterally Gastrointestinal: Yes: Hypoactive Bowel Sounds, Tenderness (rlq) Extremities: Yes: WNL Edema: No Neurological: Yes: Alert, Oriented Labs: CBC, BMP 12/27/16 10:10 12/27/16 10:10 Problem List - Problems (1) Appendicitis with perforation Assessment/Plan: npo ivf iv abx id consult surgery consult Code(s): K35.2 - ACUTE APPENDICITIS WITH GENERALIZED PERITONITIS (2) Menorrhagia Code(s): N92.0 - EXCESSIVE AND FREQUENT MENSTRUATION WITH REGULAR CYCLE Qualifiers: Menorrahagia type: with irregular cycle Qualified Code(s): N92.1 - Excessive and frequent menstruation with irregular cycle (3) Severe anemia Assessment/Plan: 2 u prbc given in today 1 unit given...need more Code(s): D64.9 - ANEMIA, UNSPECIFIED Assessment/Plan
[2016-12-27] MEDS: PIPERACILLIN/TAZOB 4.5 GM 4.5 GM in DEXTROSE 5%-WATER - 100 ML IVPB SCH (17:46)
[2016-12-27] MEDS: LACTATED RINGERS SOLUTION 1,000 ML IV SCH (17:46)
[2016-12-28] MEDS: PIPERACILLIN/TAZOB 4.5 GM 4.5 GM in DEXTROSE 5%-WATER - 100 ML IVPB SCH (02:36)
[2016-12-28] MEDS: KETOROLAC TROMETHAMINE 30 MG/1 ML VIAL IVPUSH PRN ×2 (06:59→21:18)
[2016-12-28] MEDS ORDERED: PIPERACILLIN/TAZOB 4.5 GM 100 ML IVPB SCH (10:00)
[2016-12-28 10:13] LABS: BASOPHIL 0.4 % (0-2.0); EOSINOPHIL 0.8 % (0-4.5); MCH 20.4 pg (25.7-33.7); MCHC 30.7 g/dl (32.0-36.0); MEAN CELL VOLUME 66.5 fl (80-96); MEAN PLT VOLUME 9.3 fl (7.5-11.1); NEUTROPHILS 87.2 % (42.8-82.8); PLATELET COUNT 126 K/MM3 (134-434); RDW 24.8 % (11.6-15.6); WHITE BLOOD COUNT 10.3 K/mm3 (4.0-10.0)
[2016-12-28] MEDS: LACTATED RINGERS SOLUTION 1,000 ML IV SCH ×2 (10:16→21:15)
[2016-12-28 10:56] LABS: ALBUMIN 2.3 g/dl (3.4-5.0); ALK PHOS 99 U/L (45-117); ANION GAP 10 (8-16); BILIRUBIN,TOTAL 1.7 mg/dL (0.2-1.0); CALCIUM 7.9 mg/dL (8.5-10.1); CO2 21 mmol/L (21-32); CREATININE 0.6 mg/dL (0.55-1.02); GLUCOSE,RANDOM 82 mg/dL (74-106); SGOT/AST 14 U/L (15-37); SGPT/ALT 15 U/L (12-78); TOT PROT 5.3 g/dl (6.4-8.2)
[2016-12-28] MEDS ORDERED: PIPERACILLIN/TAZOB 4.5 GM 4.5 GM in SODIUM CHLORIDE 100 ML IVPB SCH (15:40)
[2016-12-28] MEDS ORDERED: PIPERACILLIN/TAZOBACTAM 4.5 GM VIAL IVPB ONE (16:39)
[2016-12-28] MEDS ORDERED: SODIUM CHLORIDE 100 ML IVPB ONE (16:39)
--- NOTE | 2016-12-28 16:46 | PN ---
Progress Note, Physician History of Present Illness: pain better - Current Medication List Current Medications: Active Medications Acetaminophen (Tylenol Suppository -) 650 mg NM Q6H PRN PRN Reason: FEVER OR PAIN Last Admin: 12/26/16 22:29 Dose: 650 mg Lactated Ringer's (Lactated Ringers Solution) 1,000 mls @ 125 mls/hr IV ASDIR DESMOND Last Admin: 12/28/16 10:16 Dose: 125 mls/hr Piperacillin Sod/Tazobactam (Sod 4.5 gm/ Sodium Chloride) 100 mls @ 200 mls/hr IVPB Q8H-IV DESMOND PRN Reason: Protocol Ketorolac Tromethamine (Toradol Injection -) 30 mg IVPUSH Q6H PRN PRN Reason: PAIN Stop: 12/31/16 21:18 Last Admin: 12/28/16 06:59 Dose: 30 mg - Objective Vital Signs: Vital Signs Temperature 99.1 F 12/28/16 14:00 Pulse Rate 64 12/28/16 14:00 Respiratory Rate 17 12/28/16 14:00 Blood Pressure 96/50 12/28/16 13:00 O2 Sat by Pulse Oximetry (%) 96 12/28/16 04:00 Constitutional: Yes: No Distress HENT: Yes: Atraumatic Neck: Yes: Supple Cardiovascular: Yes: Regular Rate and Rhythm Respiratory: Yes: CTA Bilaterally Gastrointestinal: Yes: Hypoactive Bowel Sounds, Tenderness (mild rlq) Extremities: Yes: WNL Neurological: Yes: Alert, Oriented Labs: CBC, BMP 12/28/16 09:40 12/28/16 09:40 Problem List - Problems (1) Appendicitis with perforation Assessment/Plan: npo ivf iv abx id consult surgery consult Code(s): K35.2 - ACUTE APPENDICITIS WITH GENERALIZED PERITONITIS (2) Menorrhagia Code(s): N92.0 - EXCESSIVE AND FREQUENT MENSTRUATION WITH REGULAR CYCLE Qualifiers: Menorrahagia type: with irregular cycle Qualified Code(s): N92.1 - Excessive and frequent menstruation with irregular cycle (3) Severe anemia Assessment/Plan: s/p prbc transfusion Code(s): D64.9 - ANEMIA, UNSPECIFIED
--- NOTE | 2016-12-28 17:57 | PN ---
Progress Note (short form) - Note Progress Note: Pt seen and examined in bed. Feeling better after shower today. Pain is still there but less. No n/v. No fevers. Vital Signs Period Temp Pulse Resp BP Sys/Rodriguez Pulse Ox Last 24 Hr 98.6 F-100.5 F 64-86 17-20 93-96/47-60 96-98 PE: abdomen soft, obese, tender RLQ but less than yesterday, no R/G CBCD WBC 10.3 K/mm3 (4.0-10.0) H D 12/28/16 09:40 RBC 4.11 M/mm3 (3.60-5.2) 12/28/16 09:40 Hgb 8.4 GM/dL (10.7-15.3) L 12/28/16 09:40 Hct 27.3 % (32.4-45.2) L 12/28/16 09:40 MCV 66.5 fl (80-96) L 12/28/16 09:40 MCHC 30.7 g/dl (32.0-36.0) L 12/28/16 09:40 RDW 24.8 % (11.6-15.6) H 12/28/16 09:40 Plt Count 126 K/MM3 (134-434) L 12/28/16 09:40 MPV 9.3 fl (7.5-11.1) 12/28/16 09:40 CMP Sodium 142 mmol/L (136-145) 12/28/16 09:40 Potassium 3.0 mmol/L (3.5-5.1) L 12/28/16 09:40 Chloride 111 mmol/L (98-107) H 12/28/16 09:40 Carbon Dioxide 21 mmol/L (21-32) 12/28/16 09:40 Anion Gap 10 (8-16) 12/28/16 09:40 BUN 17 mg/dL (7-18) 12/28/16 09:40 Creatinine 0.6 mg/dL (0.55-1.02) D 12/28/16 09:40 Creat Clearance w eGFR > 60 (>60) 12/28/16 09:40 Calcium 7.9 mg/dL (8.5-10.1) L 12/28/16 09:40 Total Bilirubin 1.7 mg/dL (0.2-1.0) H 12/28/16 09:40 AST 14 U/L (15-37) L 12/28/16 09:40 ALT 15 U/L (12-78) D 12/28/16 09:40 Alkaline Phosphatase 99 U/L (45-117) 12/28/16 09:40 Total Protein 5.3 g/dl (6.4-8.2) L 12/28/16 09:40 Albumin 2.3 g/dl (3.4-5.0) L D 12/28/16 09:40 wbc decreased K+ low A/P: appendicitis with contained perforation less pain and feeling better has been OOB wbc down on antibiotics continue abx as per ID - at least 5d of IV before po to complete course replete lytes maintain NPO with IVF until no pain or tenderness would repeat CT with po contrast early Monday morning - if inflammatory changes are resolving, complete antibiotics as per ID; if drainable abscess present, should have IR drainage on Monday. (per Dr. Fernando, should remain NPO for scan AND drain if needed on Monday) Problem List - Problems (1) Appendicitis with perforation Code(s): K35.2 - ACUTE APPENDICITIS WITH GENERALIZED PERITONITIS (2) Menorrhagia Code(s): N92.0 - EXCESSIVE AND FREQUENT MENSTRUATION WITH REGULAR CYCLE Qualifiers: Menorrahagia type: with irregular cycle Qualified Code(s): N92.1 - Excessive and frequent menstruation with irregular cycle (3) Anemia due to chronic blood loss Code(s): D50.0 - IRON DEFICIENCY ANEMIA SECONDARY TO BLOOD LOSS (CHRONIC) (4) Morbid obesity with BMI of 45.0-49.9, adult Code(s): E66.01 - MORBID (SEVERE) OBESITY DUE TO EXCESS CALORIES Z68.42 - BODY MASS INDEX (BMI) 45.0-49.9, ADULT (5) History of bariatric surgery Code(s): Z98.84 - BARIATRIC SURGERY STATUS
[2016-12-28] MEDS: PIPERACILLIN/TAZOB 4.5 GM 4.5 GM in SODIUM CHLORIDE 100 ML IVPB SCH (17:59)
[2016-12-29] MEDS ORDERED: PIPERACILLIN/TAZOBACTAM 4.5 GM VIAL IVPB ONE ×2 (01:48→17:54)
[2016-12-29] MEDS ORDERED: SODIUM CHLORIDE 100 ML IVPB ONE ×2 (01:48→17:54)
[2016-12-29] MEDS: PIPERACILLIN/TAZOB 4.5 GM 4.5 GM in SODIUM CHLORIDE 100 ML IVPB SCH ×3 (01:50→17:58)
[2016-12-29] MEDS: KETOROLAC TROMETHAMINE 30 MG/1 ML VIAL IVPUSH PRN (04:39)
[2016-12-29] MEDS: LACTATED RINGERS SOLUTION 1,000 ML IV SCH ×2 (06:01→17:57)
--- NOTE | 2016-12-29 11:56 | PN ---
Progress Note (short form) - Note Progress Note: Pt seen and examined sitting up in chair. Pain is still there but less - hurts when getting in/out of bed, but not much otherwise. No n/v. + liquid BMs. Vital Signs Period Temp Pulse Resp BP Sys/Rodriguez Pulse Ox Last 24 Hr 98.5 F-99.4 F 63-72 17-22 96-131/50-73 95 PE: abdomen soft, obese, tender RLQ but less than yesterday, no R/G no new labs A/P: appendicitis with contained perforation less pain and feeling better continue abx as per ID - at least 5d of IV before po to complete course replete lytes, repeat labs maintain NPO with IVF until no pain or tenderness repeat CT with po/IV contrast early Monday morning - if inflammatory changes are resolving, complete antibiotics as per ID; if drainable abscess present, should have IR drainage on Monday. (per Dr. Fernando, should remain NPO for scan AND drain if needed on Monday) should be able to start clears after CT +/- drain insertion tomorrow I will be away until Tuesday 01/02. Dr. Shaun Almonte will be covering in my absence. Problem List - Problems (1) Appendicitis with perforation Code(s): K35.2 - ACUTE APPENDICITIS WITH GENERALIZED PERITONITIS (2) Menorrhagia Code(s): N92.0 - EXCESSIVE AND FREQUENT MENSTRUATION WITH REGULAR CYCLE Qualifiers: Menorrahagia type: with irregular cycle Qualified Code(s): N92.1 - Excessive and frequent menstruation with irregular cycle (3) Anemia due to chronic blood loss Code(s): D50.0 - IRON DEFICIENCY ANEMIA SECONDARY TO BLOOD LOSS (CHRONIC) (4) Morbid obesity with BMI of 45.0-49.9, adult Code(s): E66.01 - MORBID (SEVERE) OBESITY DUE TO EXCESS CALORIES Z68.42 - BODY MASS INDEX (BMI) 45.0-49.9, ADULT (5) History of bariatric surgery Code(s): Z98.84 - BARIATRIC SURGERY STATUS
--- NOTE | 2016-12-29 15:59 | PN ---
Progress Note, Physician History of Present Illness: patient doing much better abd pain much better - Current Medication List Current Medications: Active Medications Acetaminophen (Tylenol Suppository -) 650 mg [place] Q6H PRN PRN Reason: FEVER OR PAIN Last Admin: 12/26/16 22:29 Dose: 650 mg Lactated Ringer's (Lactated Ringers Solution) 1,000 mls @ 125 mls/hr IV ASDIR DESMOND Last Admin: 12/29/16 06:01 Dose: 125 mls/hr Piperacillin Sod/Tazobactam (Sod 4.5 gm/ Sodium Chloride) 100 mls @ 200 mls/hr IVPB Q8H-IV DESMOND PRN Reason: Protocol Last Admin: 12/29/16 01:50 Dose: 200 mls/hr Ketorolac Tromethamine (Toradol Injection -) 30 mg IVPUSH Q6H PRN PRN Reason: PAIN Stop: 12/31/16 21:18 Last Admin: 12/29/16 04:39 Dose: 30 mg - Objective Vital Signs: Vital Signs Temperature 98.7 F 12/29/16 14:26 Pulse Rate 67 12/29/16 14:26 Respiratory Rate 18 12/29/16 14:26 Blood Pressure 114/74 12/29/16 14:26 O2 Sat by Pulse Oximetry (%) 95 12/28/16 20:00 Constitutional: Yes: No Distress, Calm, Obese Cardiovascular: Yes: Regular Rate and Rhythm Respiratory: Yes: Regular, CTA Bilaterally Gastrointestinal: Yes: Soft, Hypoactive Bowel Sounds, Tenderness (resolving) Musculoskeletal: Yes: WNL Extremities: Yes: WNL Neurological: Yes: Alert, Oriented Psychiatric: Yes: Alert, Oriented Labs: CBC, BMP 12/28/16 09:40 12/28/16 09:40 Assessment/Plan Problem List - Problems (1) Appendicitis with perforation Code(s): K35.2 - ACUTE APPENDICITIS WITH GENERALIZED PERITONITIS (2) Menorrhagia Code(s): N92.0 - EXCESSIVE AND FREQUENT MENSTRUATION WITH REGULAR CYCLE Qualifiers: Menorrahagia type: with irregular cycle Qualified Code(s): N92.1 - Excessive and frequent menstruation with irregular cycle (3) Anemia due to chronic blood loss Code(s): D50.0 - IRON DEFICIENCY ANEMIA SECONDARY TO BLOOD LOSS (CHRONIC) (4) Morbid obesity with BMI of 45.0-49.9, adult Code(s): E66.01 - MORBID (SEVERE) OBESITY DUE TO EXCESS CALORIES Z68.42 - BODY MASS INDEX (BMI) 45.0-49.9, ADULT (5) History of bariatric surgery Code(s): Z98.84 - BARIATRIC SURGERY STATUS plan continue abx npo as per surgery
--- NOTE | 2016-12-29 16:01 | PN ---
Progress Note, Physician History of Present Illness: continues to improve no issues - Current Medication List Current Medications: Active Medications Acetaminophen (Tylenol Suppository -) 650 mg [place] Q6H PRN PRN Reason: FEVER OR PAIN Last Admin: 12/26/16 22:29 Dose: 650 mg Lactated Ringer's (Lactated Ringers Solution) 1,000 mls @ 125 mls/hr IV ASDIR DESMOND Last Admin: 12/29/16 06:01 Dose: 125 mls/hr Piperacillin Sod/Tazobactam (Sod 4.5 gm/ Sodium Chloride) 100 mls @ 200 mls/hr IVPB Q8H-IV DESMOND PRN Reason: Protocol Last Admin: 12/29/16 01:50 Dose: 200 mls/hr Ketorolac Tromethamine (Toradol Injection -) 30 mg IVPUSH Q6H PRN PRN Reason: PAIN Stop: 12/31/16 21:18 Last Admin: 12/29/16 04:39 Dose: 30 mg - Objective Vital Signs: Vital Signs Temperature 98.7 F 12/29/16 14:26 Pulse Rate 67 12/29/16 14:26 Respiratory Rate 18 12/29/16 14:26 Blood Pressure 114/74 12/29/16 14:26 O2 Sat by Pulse Oximetry (%) 95 12/28/16 20:00 Constitutional: Yes: No Distress, Calm, Obese Cardiovascular: Yes: Regular Rate and Rhythm Respiratory: Yes: Regular, CTA Bilaterally Gastrointestinal: Yes: Soft, Tenderness (minimal) Musculoskeletal: Yes: WNL Extremities: Yes: WNL Neurological: Yes: Alert, Oriented Psychiatric: Yes: Alert, Oriented Labs: CBC, BMP 12/28/16 09:40 12/28/16 09:40 Assessment/Plan Problem List - Problems (1) Appendicitis with perforation Code(s): K35.2 - ACUTE APPENDICITIS WITH GENERALIZED PERITONITIS (2) Menorrhagia Code(s): N92.0 - EXCESSIVE AND FREQUENT MENSTRUATION WITH REGULAR CYCLE Qualifiers: Menorrahagia type: with irregular cycle Qualified Code(s): N92.1 - Excessive and frequent menstruation with irregular cycle (3) Anemia due to chronic blood loss Code(s): D50.0 - IRON DEFICIENCY ANEMIA SECONDARY TO BLOOD LOSS (CHRONIC) (4) Morbid obesity with BMI of 45.0-49.9, adult Code(s): E66.01 - MORBID (SEVERE) OBESITY DUE TO EXCESS CALORIES Z68.42 - BODY MASS INDEX (BMI) 45.0-49.9, ADULT (5) History of bariatric surgery Code(s): Z98.84 - BARIATRIC SURGERY STATUS plan continue abx npo as per surgery for imaging stuides probably tomorrow
--- NOTE | 2016-12-29 18:12 | PN ---
Progress Note, Physician History of Present Illness: pain better - Current Medication List Current Medications: Active Medications Acetaminophen (Tylenol Suppository -) 650 mg [place] Q6H PRN PRN Reason: FEVER OR PAIN Last Admin: 12/26/16 22:29 Dose: 650 mg Lactated Ringer's (Lactated Ringers Solution) 1,000 mls @ 125 mls/hr IV ASDIR DESMOND Last Admin: 12/29/16 17:57 Dose: 125 mls/hr Piperacillin Sod/Tazobactam (Sod 4.5 gm/ Sodium Chloride) 100 mls @ 200 mls/hr IVPB Q8H-IV DESMOND PRN Reason: Protocol Last Admin: 12/29/16 17:58 Dose: 200 mls/hr Ketorolac Tromethamine (Toradol Injection -) 30 mg IVPUSH Q6H PRN PRN Reason: PAIN Stop: 12/31/16 21:18 Last Admin: 12/29/16 04:39 Dose: 30 mg - Objective Vital Signs: Vital Signs Temperature 98.7 F 12/29/16 14:26 Pulse Rate 67 12/29/16 14:26 Respiratory Rate 18 12/29/16 14:26 Blood Pressure 114/74 12/29/16 14:26 O2 Sat by Pulse Oximetry (%) 95 12/29/16 09:00 Constitutional: Yes: No Distress HENT: Yes: Atraumatic Neck: Yes: Supple Cardiovascular: Yes: Regular Rate and Rhythm Respiratory: Yes: CTA Bilaterally Gastrointestinal: Yes: Normal Bowel Sounds, Tenderness (mild rlq) Extremities: Yes: WNL Neurological: Yes: Alert, Oriented Labs: CBC, BMP 12/28/16 09:40 12/28/16 09:40 Problem List - Problems (1) Appendicitis with perforation Assessment/Plan: npo ivf iv abx id consult surgery consult ct abd/pelvis in am allergic to iv contrast Code(s): K35.2 - ACUTE APPENDICITIS WITH GENERALIZED PERITONITIS (2) Menorrhagia Code(s): N92.0 - EXCESSIVE AND FREQUENT MENSTRUATION WITH REGULAR CYCLE Qualifiers: Menorrahagia type: with irregular cycle Qualified Code(s): N92.1 - Excessive and frequent menstruation with irregular cycle (3) Severe anemia Assessment/Plan: s/p prbc transfusion Code(s): D64.9 - ANEMIA, UNSPECIFIED
[2016-12-29] MEDS: KCL 10 MEQ IVPB 100 ML IVPB SCH ×2 (21:22→23:30)
[2016-12-30] MEDS ORDERED: SODIUM CHLORIDE 100 ML IVPB ONE ×3 (02:30→18:11)
[2016-12-30] MEDS ORDERED: PIPERACILLIN/TAZOBACTAM 4.5 GM VIAL IVPB ONE ×3 (02:30→18:11)
[2016-12-30] MEDS: PIPERACILLIN/TAZOB 4.5 GM 4.5 GM in SODIUM CHLORIDE 100 ML IVPB SCH ×3 (02:37→18:38)
[2016-12-30] MEDS: LACTATED RINGERS SOLUTION 1,000 ML IV SCH ×2 (06:33→18:46)
[2016-12-30 08:15] LABS: MCH 20.3 pg (25.7-33.7); MCHC 31.1 g/dl (32.0-36.0); MEAN CELL VOLUME 65.4 fl (80-96); MEAN PLT VOLUME 8.8 fl (7.5-11.1); PLATELET COUNT 140 K/MM3 (134-434); RDW 25.1 % (11.6-15.6); WHITE BLOOD COUNT 8.8 K/mm3 (4.0-10.0)
[2016-12-30 08:19] LABS: ALBUMIN 2.3 g/dl (3.4-5.0); ANION GAP 9 (8-16); CALCIUM 7.8 mg/dL (8.5-10.1); CO2 24 mmol/L (21-32); GLUCOSE,RANDOM 70 mg/dL (74-106)
[2016-12-30 08:24] LABS: ALK PHOS 145 U/L (45-117); BILIRUBIN,TOTAL 1.1 mg/dL (0.2-1.0); CREATININE 0.5 mg/dL (0.55-1.02); SGOT/AST 33 U/L (15-37); SGPT/ALT 30 U/L (12-78); TOT PROT 5.7 g/dl (6.4-8.2)
--- NOTE | 2016-12-30 09:58 | PN ---
Progress Note, Physician Chief Complaint: no pain History of Present Illness: patient with no pain. about to start drinking for CT. hungry. - Current Medication List Current Medications: Active Medications Acetaminophen (Tylenol Suppository -) 650 mg [place] Q6H PRN PRN Reason: FEVER OR PAIN Last Admin: 12/26/16 22:29 Dose: 650 mg Lactated Ringer's (Lactated Ringers Solution) 1,000 mls @ 125 mls/hr IV ASDIR DESMOND Last Admin: 12/30/16 06:33 Dose: 125 mls/hr Piperacillin Sod/Tazobactam (Sod 4.5 gm/ Sodium Chloride) 100 mls @ 200 mls/hr IVPB Q8H-IV DESMOND PRN Reason: Protocol Last Admin: 12/30/16 02:37 Dose: 200 mls/hr Ketorolac Tromethamine (Toradol Injection -) 30 mg IVPUSH Q6H PRN PRN Reason: PAIN Stop: 12/31/16 21:18 Last Admin: 12/29/16 04:39 Dose: 30 mg - Objective Vital Signs: Vital Signs Temperature 98.6 F 12/30/16 07:58 Pulse Rate 67 12/30/16 07:58 Respiratory Rate 18 12/30/16 07:58 Blood Pressure 103/63 12/30/16 07:58 O2 Sat by Pulse Oximetry (%) 95 12/29/16 23:00 Constitutional: Yes: No Distress, Calm Eyes: Yes: Conjunctiva Clear, EOM Intact HENT: Yes: Atraumatic, Normocephalic Neck: Yes: Supple, Trachea Midline Cardiovascular: Yes: Regular Rate and Rhythm Respiratory: Yes: Regular, CTA Bilaterally Gastrointestinal: Yes: Soft, Abdomen, Obese. No: Distention, Tenderness Genitourinary: No: CVA Tenderness - Left, CVA Tenderness - Right Musculoskeletal: No: Joint Stiffness, Joint Swelling Extremities: No: Calf Tenderness, Erythema Integumentary: No: Erythema, Rash Neurological: Yes: Alert, Oriented Psychiatric: Yes: Alert, Oriented Labs: CBC, BMP 12/30/16 07:00 12/30/16 07:00 Problem List - Problems (1) Appendicitis with perforation Assessment/Plan: await repeat CT results if improved can start clear liquid diet and advance to reg diet for dinner hopefully can d/c home tomorrow with oral abx regimen? Code(s): K35.2 - ACUTE APPENDICITIS WITH GENERALIZED PERITONITIS
[2016-12-30] MEDS ORDERED: ALPRAZolam 0.25 MG TABLET PO ONE (12:00)
--- NOTE | 2016-12-30 15:12 | PN ---
Progress Note, Physician History of Present Illness: feeling much better no complaints passing gases had loose bm - Current Medication List Current Medications: Active Medications Acetaminophen (Tylenol Suppository -) 650 mg [place] Q6H PRN PRN Reason: FEVER OR PAIN Last Admin: 12/26/16 22:29 Dose: 650 mg Lactated Ringer's (Lactated Ringers Solution) 1,000 mls @ 125 mls/hr IV ASDIR DESMOND Last Admin: 12/30/16 06:33 Dose: 125 mls/hr Piperacillin Sod/Tazobactam (Sod 4.5 gm/ Sodium Chloride) 100 mls @ 200 mls/hr IVPB Q8H-IV DESMOND PRN Reason: Protocol Last Admin: 12/30/16 09:57 Dose: 200 mls/hr Ketorolac Tromethamine (Toradol Injection -) 30 mg IVPUSH Q6H PRN PRN Reason: PAIN Stop: 12/31/16 21:18 Last Admin: 12/29/16 04:39 Dose: 30 mg - Objective Vital Signs: Vital Signs Temperature 98.1 F 12/30/16 14:54 Pulse Rate 59 L 12/30/16 14:54 Respiratory Rate 18 12/30/16 14:54 Blood Pressure 128/69 12/30/16 14:54 O2 Sat by Pulse Oximetry (%) 95 12/29/16 23:00 Constitutional: Yes: No Distress, Calm, Obese Cardiovascular: Yes: Regular Rate and Rhythm Respiratory: Yes: Regular, CTA Bilaterally Gastrointestinal: Yes: Normal Bowel Sounds, Soft Musculoskeletal: Yes: WNL Extremities: Yes: WNL Neurological: Yes: Alert, Oriented Psychiatric: Yes: Alert, Oriented Labs: CBC, BMP 12/30/16 07:00 12/30/16 07:00 Assessment/Plan Problem List - Problems (1) Appendicitis with perforation Code(s): K35.2 - ACUTE APPENDICITIS WITH GENERALIZED PERITONITIS (2) Menorrhagia Code(s): N92.0 - EXCESSIVE AND FREQUENT MENSTRUATION WITH REGULAR CYCLE Qualifiers: Menorrahagia type: with irregular cycle Qualified Code(s): N92.1 - Excessive and frequent menstruation with irregular cycle (3) Anemia due to chronic blood loss Code(s): D50.0 - IRON DEFICIENCY ANEMIA SECONDARY TO BLOOD LOSS (CHRONIC) (4) Morbid obesity with BMI of 45.0-49.9, adult Code(s): E66.01 - MORBID (SEVERE) OBESITY DUE TO EXCESS CALORIES Z68.42 - BODY MASS INDEX (BMI) 45.0-49.9, ADULT (5) History of bariatric surgery Code(s): Z98.84 - BARIATRIC SURGERY STATUS plan continue abx npo await for results of ct scan rest as per primary
--- NOTE | 2016-12-30 16:54 | PN ---
Progress Note, Physician History of Present Illness: pain better - Current Medication List Current Medications: Active Medications Acetaminophen (Tylenol Suppository -) 650 mg [place] Q6H PRN PRN Reason: FEVER OR PAIN Last Admin: 12/26/16 22:29 Dose: 650 mg Lactated Ringer's (Lactated Ringers Solution) 1,000 mls @ 125 mls/hr IV ASDIR DESMOND Last Admin: 12/30/16 06:33 Dose: 125 mls/hr Piperacillin Sod/Tazobactam (Sod 4.5 gm/ Sodium Chloride) 100 mls @ 200 mls/hr IVPB Q8H-IV DESMOND PRN Reason: Protocol Last Admin: 12/30/16 09:57 Dose: 200 mls/hr Ketorolac Tromethamine (Toradol Injection -) 30 mg IVPUSH Q6H PRN PRN Reason: PAIN Stop: 12/31/16 21:18 Last Admin: 12/29/16 04:39 Dose: 30 mg - Objective Vital Signs: Vital Signs Temperature 98.1 F 12/30/16 14:54 Pulse Rate 59 L 12/30/16 14:54 Respiratory Rate 18 12/30/16 14:54 Blood Pressure 128/69 12/30/16 14:54 O2 Sat by Pulse Oximetry (%) 95 12/29/16 23:00 Constitutional: Yes: No Distress HENT: Yes: Atraumatic Neck: Yes: Supple Cardiovascular: Yes: Regular Rate and Rhythm Respiratory: Yes: CTA Bilaterally Gastrointestinal: Yes: Normal Bowel Sounds, Tenderness (rlq) Extremities: Yes: WNL Neurological: Yes: Alert, Oriented Labs: CBC, BMP 12/30/16 07:00 12/30/16 07:00 Problem List - Problems (1) Appendicitis with perforation Assessment/Plan: npo ivf iv abx id consult surgery consult ct abd/pelvis done..PHLEGMON NEED SURGERY INPUT Code(s): K35.2 - ACUTE APPENDICITIS WITH GENERALIZED PERITONITIS (2) Menorrhagia Code(s): N92.0 - EXCESSIVE AND FREQUENT MENSTRUATION WITH REGULAR CYCLE Qualifiers: Menorrahagia type: with irregular cycle Qualified Code(s): N92.1 - Excessive and frequent menstruation with irregular cycle (3) Severe anemia Assessment/Plan: s/p prbc transfusion HGB BETTER Code(s): D64.9 - ANEMIA, UNSPECIFIED
[2016-12-30] MEDS ORDERED: POTASSIUM CHLORIDE TABS 20 MEQ TABLET.ER (FP) PO SCH (21:00)
[2016-12-30] MEDS: POTASSIUM CHLORIDE ORAL LIQUID 20 MEQ/15 ML PO SCH ×2 (22:02→22:05)
[2016-12-31] MEDS ORDERED: PIPERACILLIN/TAZOBACTAM 4.5 GM VIAL IVPB ONE ×4 (01:28→16:46)
[2016-12-31] MEDS ORDERED: SODIUM CHLORIDE 100 ML IVPB ONE ×2 (01:28→09:31)
[2016-12-31] MEDS: PIPERACILLIN/TAZOB 4.5 GM 4.5 GM in SODIUM CHLORIDE 100 ML IVPB SCH ×3 (01:37→17:11)
[2016-12-31] MEDS: LACTATED RINGERS SOLUTION 1,000 ML IV SCH ×2 (03:44→17:11)
[2016-12-31] MEDS: POTASSIUM CHLORIDE TABS 20 MEQ TABLET.ER (FP) PO SCH (13:36)
--- NOTE | 2016-12-31 14:10 | PN ---
Progress Note, Physician History of Present Illness: Patient states she feels well. RLQ abd pain only when moves in/out of bed. No fever, chills, nausea, vomiting. - Current Medication List Current Medications: Active Medications Acetaminophen (Tylenol Suppository -) 650 mg [place] Q6H PRN PRN Reason: FEVER OR PAIN Last Admin: 12/26/16 22:29 Dose: 650 mg Alprazolam (Xanax -) 0.5 mg PO BID PRN Lactated Ringer's (Lactated Ringers Solution) 1,000 mls @ 125 mls/hr IV ASDIR DESMOND Last Admin: 12/31/16 03:44 Dose: 125 mls/hr Piperacillin Sod/Tazobactam (Sod 4.5 gm/ Sodium Chloride) 100 mls @ 200 mls/hr IVPB Q8H-IV DESMOND PRN Reason: Protocol Last Admin: 12/31/16 10:18 Dose: 200 mls/hr Ketorolac Tromethamine (Toradol Injection -) 30 mg IVPUSH Q6H PRN PRN Reason: PAIN Stop: 12/31/16 21:18 Last Admin: 12/29/16 04:39 Dose: 30 mg Potassium Chloride (K-Dur -) 40 meq PO DAILY DESMOND Last Admin: 12/31/16 13:36 Dose: 40 meq - Objective Vital Signs: Vital Signs Temperature 98.2 F 12/31/16 02:00 Pulse Rate 69 12/31/16 10:00 Respiratory Rate 20 12/31/16 10:00 Blood Pressure 128/74 12/31/16 10:00 O2 Sat by Pulse Oximetry (%) 97 12/31/16 01:00 Constitutional: Yes: No Distress Eyes: Yes: WNL HENT: Yes: WNL Neck: Yes: WNL Cardiovascular: Yes: WNL Respiratory: Yes: WNL Gastrointestinal: Yes: Normal Bowel Sounds, Soft, Tenderness (minimal pain RLQ with deep palpation) Labs: CBC, BMP 12/30/16 07:00 12/30/16 07:00 - ....Imaging Cat Scan: Report Reviewed Problem List - Problems (1) Appendicitis with perforation Code(s): K35.2 - ACUTE APPENDICITIS WITH GENERALIZED PERITONITIS Assessment/Plan Appendicitis with perforation/peritonitis with phlegmon formation Continue IV antibiotics monitor electrolytes vitals currently stable Labs Lab Results: CBC, BMP 12/30/16 07:00 12/30/16 07:00
--- NOTE | 2016-12-31 15:02 | PN ---
Progress Note, Physician Chief Complaint: none History of Present Illness: ct results noted. patient with no pain. wbc normal. no fever. jessy clears - Current Medication List Current Medications: Active Medications Acetaminophen (Tylenol Suppository -) 650 mg [place] Q6H PRN PRN Reason: FEVER OR PAIN Last Admin: 12/26/16 22:29 Dose: 650 mg Alprazolam (Xanax -) 0.5 mg PO BID PRN Lactated Ringer's (Lactated Ringers Solution) 1,000 mls @ 125 mls/hr IV ASDIR DESMOND Last Admin: 12/31/16 03:44 Dose: 125 mls/hr Piperacillin Sod/Tazobactam (Sod 4.5 gm/ Sodium Chloride) 100 mls @ 200 mls/hr IVPB Q8H-IV DESMOND PRN Reason: Protocol Last Admin: 12/31/16 10:18 Dose: 200 mls/hr Ketorolac Tromethamine (Toradol Injection -) 30 mg IVPUSH Q6H PRN PRN Reason: PAIN Stop: 12/31/16 21:18 Last Admin: 12/29/16 04:39 Dose: 30 mg Potassium Chloride (K-Dur -) 40 meq PO DAILY DESMOND Last Admin: 12/31/16 13:36 Dose: 40 meq - Objective Vital Signs: Vital Signs Temperature 98.6 F 12/31/16 14:26 Pulse Rate 60 12/31/16 14:26 Respiratory Rate 20 12/31/16 14:26 Blood Pressure 117/70 12/31/16 14:26 O2 Sat by Pulse Oximetry (%) 97 12/31/16 01:00 Constitutional: Yes: No Distress, Calm Eyes: Yes: Conjunctiva Clear, EOM Intact HENT: Yes: Atraumatic, Normocephalic Neck: Yes: Supple, Trachea Midline Cardiovascular: Yes: Regular Rate and Rhythm Respiratory: Yes: Regular, CTA Bilaterally Gastrointestinal: Yes: Soft, Abdomen, Obese. No: Distention, Tenderness Genitourinary: No: CVA Tenderness - Left, CVA Tenderness - Right Musculoskeletal: No: Joint Stiffness, Joint Swelling Extremities: No: Calf Tenderness, Erythema Integumentary: No: Erythema, Rash Neurological: Yes: Alert, Oriented Psychiatric: Yes: Alert, Oriented Labs: CBC, BMP 12/30/16 07:00 12/30/16 07:00 Problem List - Problems (1) Appendicitis with perforation Assessment/Plan: patient with morbid obesity and missed appendicitis even though CT looks slightly worse patient okay by other clinical parameters will adv diet if tolerate diet can d/c home tomorrow on oral abx Code(s): K35.2 - ACUTE APPENDICITIS WITH GENERALIZED PERITONITIS
[2016-12-31] MEDS: POTASSIUM CHLORIDE ORAL LIQUID 20 MEQ/15 ML PO SCH (16:15)
--- NOTE | 2016-12-31 17:37 | PN ---
Progress Note, Physician History of Present Illness: MINIMAL PAIN - Current Medication List Current Medications: Active Medications Acetaminophen (Tylenol Suppository -) 650 mg [place] Q6H PRN PRN Reason: FEVER OR PAIN Last Admin: 12/26/16 22:29 Dose: 650 mg Alprazolam (Xanax -) 0.5 mg PO BID PRN Lactated Ringer's (Lactated Ringers Solution) 1,000 mls @ 125 mls/hr IV ASDIR DESMOND Last Admin: 12/31/16 17:11 Dose: 125 mls/hr Piperacillin Sod/Tazobactam (Sod 4.5 gm/ Sodium Chloride) 100 mls @ 200 mls/hr IVPB Q8H-IV DESMOND PRN Reason: Protocol Last Admin: 12/31/16 17:11 Dose: 200 mls/hr Ketorolac Tromethamine (Toradol Injection -) 30 mg IVPUSH Q6H PRN PRN Reason: PAIN Stop: 12/31/16 21:18 Last Admin: 12/29/16 04:39 Dose: 30 mg Potassium Chloride (K-Dur -) 40 meq PO DAILY DESMOND Last Admin: 12/31/16 13:36 Dose: 40 meq - Objective Vital Signs: Vital Signs Temperature 98.9 F 12/31/16 17:26 Pulse Rate 67 12/31/16 17:26 Respiratory Rate 18 12/31/16 17:26 Blood Pressure 106/66 12/31/16 17:26 O2 Sat by Pulse Oximetry (%) 97 12/31/16 01:00 Constitutional: Yes: No Distress HENT: Yes: Atraumatic Neck: Yes: Supple Cardiovascular: Yes: Regular Rate and Rhythm Respiratory: Yes: CTA Bilaterally Gastrointestinal: Yes: Normal Bowel Sounds Extremities: Yes: WNL Neurological: Yes: Alert, Oriented Labs: CBC, BMP 12/30/16 07:00 12/30/16 07:00 Problem List - Problems (1) Appendicitis with perforation Assessment/Plan: npo...ON REGULAR DIET PER SURGERY...MONITOR FOR PAIN ivf iv abx id consult surgery consult ct abd/pelvis done..PHLEGMON Code(s): K35.2 - ACUTE APPENDICITIS WITH GENERALIZED PERITONITIS (2) Menorrhagia Code(s): N92.0 - EXCESSIVE AND FREQUENT MENSTRUATION WITH REGULAR CYCLE Qualifiers: Menorrahagia type: with irregular cycle Qualified Code(s): N92.1 - Excessive and frequent menstruation with irregular cycle (3) Severe anemia Assessment/Plan: s/p prbc transfusion HGB BETTER Code(s): D64.9 - ANEMIA, UNSPECIFIED
[2017-01-01] MEDS ORDERED: PIPERACILLIN/TAZOBACTAM 4.5 GM VIAL IVPB ONE ×3 (00:53→17:23)
[2017-01-01] MEDS ORDERED: SODIUM CHLORIDE 100 ML IVPB ONE ×3 (00:53→17:23)
[2017-01-01] MEDS: KETOROLAC TROMETHAMINE 30 MG/1 ML VIAL IVPB PRN ×2 (00:56→17:29)
[2017-01-01] MEDS: PIPERACILLIN/TAZOB 4.5 GM 4.5 GM in SODIUM CHLORIDE 100 ML IVPB SCH ×3 (01:02→17:28)
[2017-01-01] MEDS: LACTATED RINGERS SOLUTION 1,000 ML IV SCH ×3 (02:00→22:27)
--- NOTE | 2017-01-01 09:40 | CON.OBG ---
Consult Consult Specialty:: OBGYN Reason for Consultation:: Menorrhagia - History of Present Illness Chief Complaint: Prolonged and irregular menses History of Present Illness: 46 yo Para 0, admitted for ruptured appendix, c/o of vaginal bleeding since October. She admits to h/o anemia that required blood transfusion. She had prior Cholecystectomy and several D&C in the past. Sonogram done recently showed evidence of a 3.5 cm fibroid. The uterus measures 11.5 x 6.4 cm with endometrial echo complex ( 9mm ). There was also a 2.5 cm right ovarian cyst. - History Source History Provided By: Patient Limitations to Obtaining History: No Limitations - Past Medical History Pulmonary: Yes: Asthma Gastrointestinal: Yes: Other (morbid obesity) Hepatobiliary: Yes: Other (had open андрей in for "burst gallbladder") ...LMP: 07/02/16 ...: No ...Para: 0 Psych: Yes: Anxiety, Depression, Panic Musculoskeletal: Yes: Chronic low back pain (after weight loss) Additional Medical History: h/o multiple broken bones including both ankles in past - Past Surgical History Past Surgical History: Yes: Bariatric Surgery (gastric sleeve - lost 140 lbs), Cholecystectomy Additional Surgical History: multiple D&Cs - Alcohol/Substance Use Hx Alcohol Use: Yes (OCCASIONALLY) History of Substance Use: reports: None - Smoking History Smoking history: Never smoked Have you smoked in the past 12 months: No Aproximately how many cigarettes per day: 0 - Social History History of Recent Travel: No Home Medications - Allergies Allergies/Adverse Reactions: Allergies Allergy/AdvReac Type Severity Reaction Status Date / Time shellfish derived Allergy Severe Difficulty Verified 12/26/16 10:11 Breathing Fish Containing Products Allergy Verified 12/29/16 18:18 fish derived Allergy Verified 12/29/16 18:20 morphine Allergy Verified 12/26/16 13:46 - Home Medications Home Medications: Ambulatory Orders Ascorbate Calcium [Vitamin C] 1,000 mg PO DAILY 07/28/16 Biotin 1 mg PO DAILY 07/28/16 Cholecalciferol (Vitamin D3) [Vitamin D -] 800 unit PO DAILY 07/28/16 Multivitamins [Multivit ([facility] Formulary)] 1 tab PO DAILY 07/28/16 Albuterol Sulfate Inhaler - [Ventolin HFA Inhaler -] 1 - 2 inh PO Q4H PRN #1 inhaler 07/29/16 Ferrous Sulfate [Feosol] 325 mg PO DAILY #30 tablet 07/29/16 Family Disease History - Family Disease History Family Disease History: Diabetes: Grandparent (grandfather), Heart Disease: Father ( of [place] ~40), Other: Mother ( in 40s) Review of Systems - Review of Systems Constitutional: reports: Malaise, Weakness Eyes: reports: No Symptoms HENT: reports: No Symptoms Neck: reports: No Symptoms Respiratory: reports: No Symptoms Gastrointestinal: reports: No Symptoms Genitourinary: reports: Vaginal Bleeding Breasts: reports: No Symptoms Reported Musculoskeletal: reports: No Symptoms Integumentary: reports: No Symptoms Neurological: reports: No Symptoms Endocrine: reports: No Symptoms Hematology/Lymphatic: reports: No Symptoms Psychiatric: reports: No Symptoms Pain Intensity: 2 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 Vital Signs: Vital Signs Temperature 98.5 F 01/01/17 06:06 Pulse Rate 62 01/01/17 06:06 Respiratory Rate 20 01/01/17 06:06 Blood Pressure 107/67 01/01/17 06:06 O2 Sat by Pulse Oximetry (%) 97 12/31/16 21:00 Constitutional: Yes: Well Nourished Eyes: Yes: Conjunctiva Clear HENT: Yes: Atraumatic Neck: Yes: Supple Cardiovascular: Yes: Regular Rate and Rhythm Respiratory: Yes: Regular Gastrointestinal: Yes: Normal Bowel Sounds External Genitalia: Yes: Normal Vaginal Exam: Yes: Bleeding Neurological: Yes: Alert, Oriented ...Motor Strength: WNL Psychiatric: Yes: Alert, Oriented Labs: CBC, BMP 12/30/16 07:00 12/30/16 07:00 Assessment/Plan Menorrhagia Anemia Ovarian cyst Leiomyoma of the uterus R/O adenomyosis R/O endometrial polyp R/O endometrial hyperplasia R/o endometrial carcinoma D& C Hysteroscopy recommended before leaving the hospital
[2017-01-01] MEDS: POTASSIUM CHLORIDE TABS 20 MEQ TABLET.ER (FP) PO SCH (09:55)
--- NOTE | 2017-01-01 14:59 | PN ---
Progress Note, Physician Chief Complaint: pain History of Present Illness: patient tolerating diet. labs not done today. Patient had fair amount of pain today and last night and was doubled over but now appears to be comfortable. - Current Medication List Current Medications: Active Medications Acetaminophen (Tylenol Suppository -) 650 mg [place] Q6H PRN PRN Reason: FEVER OR PAIN Last Admin: 12/26/16 22:29 Dose: 650 mg Alprazolam (Xanax -) 0.5 mg PO BID PRN Lactated Ringer's (Lactated Ringers Solution) 1,000 mls @ 125 mls/hr IV ASDIR DESMOND Last Admin: 01/01/17 09:53 Dose: 125 mls/hr Piperacillin Sod/Tazobactam (Sod 4.5 gm/ Sodium Chloride) 100 mls @ 200 mls/hr IVPB Q8H-IV DESMOND PRN Reason: Protocol Last Admin: 01/01/17 09:54 Dose: 200 mls/hr Ketorolac Tromethamine (Toradol Injection -) 30 mg IVPB Q6H PRN Stop: 01/06/17 00:21 Last Admin: 01/01/17 00:56 Dose: 30 mg Potassium Chloride (K-Dur -) 40 meq PO DAILY DESMOND Last Admin: 01/01/17 09:55 Dose: 40 meq - Objective Vital Signs: Vital Signs Temperature 98.5 F 01/01/17 06:06 Pulse Rate 67 01/01/17 09:54 Respiratory Rate 20 01/01/17 09:54 Blood Pressure 103/65 01/01/17 09:54 O2 Sat by Pulse Oximetry (%) 97 12/31/16 21:00 Constitutional: Yes: No Distress, Calm Eyes: Yes: Conjunctiva Clear, EOM Intact HENT: Yes: Atraumatic, Normocephalic Neck: Yes: Supple Cardiovascular: Yes: Regular Rate and Rhythm Respiratory: Yes: Regular, CTA Bilaterally Gastrointestinal: Yes: Soft. No: Distention, Tenderness Genitourinary: No: CVA Tenderness - Left, CVA Tenderness - Right Musculoskeletal: No: Joint Stiffness, Joint Swelling Extremities: No: Calf Tenderness, Erythema Integumentary: No: Erythema, Rash Neurological: Yes: Alert, Oriented Psychiatric: Yes: Alert, Oriented Labs: CBC, BMP 12/30/16 07:00 12/30/16 07:00 Problem List - Problems (1) Appendicitis with perforation Assessment/Plan: patient with perforated appendicitis and bmi almost 50. given pain is returning operative intervention should be considered given BMI I discussed this with patient and she agrees transfer to [facility] would be preferrable. she is hemodynamically stable. cont reg diet. cont IV abx. please attempt to transfer for her to [facility] tomorrow. Code(s): K35.2 - ACUTE APPENDICITIS WITH GENERALIZED PERITONITIS
--- NOTE | 2017-01-01 17:25 | PN ---
Progress Note, Physician History of Present Illness: Events noted Pt with mild RLQ pain with deep palpation Denies n/v Remains afebrile on antibiotics - Current Medication List Current Medications: Active Medications Acetaminophen (Tylenol Suppository -) 650 mg [place] Q6H PRN PRN Reason: FEVER OR PAIN Last Admin: 12/26/16 22:29 Dose: 650 mg Alprazolam (Xanax -) 0.5 mg PO BID PRN Lactated Ringer's (Lactated Ringers Solution) 1,000 mls @ 125 mls/hr IV ASDIR DESMOND Last Admin: 01/01/17 09:53 Dose: 125 mls/hr Piperacillin Sod/Tazobactam (Sod 4.5 gm/ Sodium Chloride) 100 mls @ 200 mls/hr IVPB Q8H-IV DESMOND PRN Reason: Protocol Last Admin: 01/01/17 09:54 Dose: 200 mls/hr Ketorolac Tromethamine (Toradol Injection -) 30 mg IVPB Q6H PRN Stop: 01/06/17 00:21 Last Admin: 01/01/17 00:56 Dose: 30 mg Potassium Chloride (K-Dur -) 40 meq PO DAILY DESMOND Last Admin: 01/01/17 09:55 Dose: 40 meq - Objective Vital Signs: Vital Signs Temperature 98.6 F 01/01/17 15:08 Pulse Rate 68 01/01/17 15:08 Respiratory Rate 20 01/01/17 15:08 Blood Pressure 111/73 01/01/17 15:08 O2 Sat by Pulse Oximetry (%) 97 12/31/16 21:00 Constitutional: Yes: No Distress Cardiovascular: Yes: Regular Rate and Rhythm Respiratory: Yes: Regular Gastrointestinal: Yes: Normal Bowel Sounds, Soft, Abdomen, Obese, Other (RLQ discomfort when moves in and out of bed) Genitourinary: Yes: WNL Labs: CBC, BMP 12/30/16 07:00 12/30/16 07:00 - ....Imaging Cat Scan: Report Reviewed Problem List - Problems (1) Appendicitis with perforation Code(s): K35.2 - ACUTE APPENDICITIS WITH GENERALIZED PERITONITIS (2) Anemia due to chronic blood loss Code(s): D50.0 - IRON DEFICIENCY ANEMIA SECONDARY TO BLOOD LOSS (CHRONIC) (3) Morbid obesity with BMI of 45.0-49.9, adult Code(s): E66.01 - MORBID (SEVERE) OBESITY DUE TO EXCESS CALORIES Z68.42 - BODY MASS INDEX (BMI) 45.0-49.9, ADULT Assessment/Plan Appendicitis with perforation/peritonitis with phlegmon formation Continue Zosyn IV plan to transfer to [facility] as per PMD monitor electrolytes vitals currently stable
--- NOTE | 2017-01-01 18:47 | PN ---
Progress Note, Physician History of Present Illness: MINIMAL PAIN - Current Medication List Current Medications: Active Medications Acetaminophen (Tylenol Suppository -) 650 mg [place] Q6H PRN PRN Reason: FEVER OR PAIN Last Admin: 12/26/16 22:29 Dose: 650 mg Alprazolam (Xanax -) 0.5 mg PO BID PRN Lactated Ringer's (Lactated Ringers Solution) 1,000 mls @ 125 mls/hr IV ASDIR DESMOND Last Admin: 01/01/17 09:53 Dose: 125 mls/hr Piperacillin Sod/Tazobactam (Sod 4.5 gm/ Sodium Chloride) 100 mls @ 200 mls/hr IVPB Q8H-IV DESMOND PRN Reason: Protocol Last Admin: 01/01/17 17:28 Dose: 200 mls/hr Ketorolac Tromethamine (Toradol Injection -) 30 mg IVPB Q6H PRN Stop: 01/06/17 00:21 Last Admin: 01/01/17 17:29 Dose: 30 mg Potassium Chloride (K-Dur -) 40 meq PO DAILY DESMOND Last Admin: 01/01/17 09:55 Dose: 40 meq - Objective Vital Signs: Vital Signs Temperature 98.6 F 01/01/17 15:08 Pulse Rate 68 01/01/17 15:08 Respiratory Rate 20 01/01/17 15:08 Blood Pressure 111/73 01/01/17 15:08 O2 Sat by Pulse Oximetry (%) 97 12/31/16 21:00 Constitutional: Yes: No Distress HENT: Yes: Atraumatic Neck: Yes: Supple Cardiovascular: Yes: Regular Rate and Rhythm Respiratory: Yes: CTA Bilaterally Gastrointestinal: Yes: Normal Bowel Sounds Extremities: Yes: WNL Neurological: Yes: Alert, Oriented Labs: CBC, BMP 12/30/16 07:00 12/30/16 07:00 Problem List - Problems (1) Appendicitis with perforation Assessment/Plan: npo...ON REGULAR DIET PER SURGERY...MONITOR FOR PAIN ivf iv abx id consult surgery consult ct abd/pelvis done..PHLEGMON Code(s): K35.2 - ACUTE APPENDICITIS WITH GENERALIZED PERITONITIS (2) Menorrhagia Code(s): N92.0 - EXCESSIVE AND FREQUENT MENSTRUATION WITH REGULAR CYCLE Qualifiers: Menorrahagia type: with irregular cycle Qualified Code(s): N92.1 - Excessive and frequent menstruation with irregular cycle (3) Severe anemia Assessment/Plan: s/p prbc transfusion HGB BETTER Code(s): D64.9 - ANEMIA, UNSPECIFIED Assessment/Plan spoke with dr blayne valero surgeon from [facility] [phone] he is saying he will not do surgery as pt has phlegmon, she should be on antibiotics and follow up with her as out pt
[2017-01-02] MEDS ORDERED: PIPERACILLIN/TAZOBACTAM 4.5 GM VIAL IVPB ONE ×4 (02:48→17:40)
[2017-01-02] MEDS ORDERED: SODIUM CHLORIDE 100 ML IVPB ONE ×4 (02:49→17:40)
[2017-01-02] MEDS: PIPERACILLIN/TAZOB 4.5 GM 4.5 GM in SODIUM CHLORIDE 100 ML IVPB SCH ×3 (02:52→17:45)
[2017-01-02 09:07] LABS: MCH 20.3 pg (25.7-33.7); MCHC 30.6 g/dl (32.0-36.0); MEAN CELL VOLUME 66.2 fl (80-96); MEAN PLT VOLUME 8.5 fl (7.5-11.1); PLATELET COUNT 174 K/MM3 (134-434); RDW 26.4 % (11.6-15.6); WHITE BLOOD COUNT 5.7 K/mm3 (4.0-10.0)
[2017-01-02 09:30] LABS: ALBUMIN 2.2 g/dl (3.4-5.0); ANION GAP 7 (8-16); BILIRUBIN,TOTAL 0.3 mg/dL (0.2-1.0); CALCIUM 7.9 mg/dL (8.5-10.1); CO2 25 mmol/L (21-32); CREATININE 0.4 mg/dL (0.55-1.02); GLUCOSE,RANDOM 93 mg/dL (74-106); SGOT/AST 18 U/L (15-37); SGPT/ALT 24 U/L (12-78); TOT PROT 5.7 g/dl (6.4-8.2)
[2017-01-02 09:31] LABS: ALK PHOS 99 U/L (45-117)
[2017-01-02] MEDS: ALPRAZolam 0.25 MG TABLET PO PRN ×2 (09:52→22:04)
[2017-01-02] MEDS: POTASSIUM CHLORIDE TABS 20 MEQ TABLET.ER (FP) PO SCH (09:53)
--- NOTE | 2017-01-02 10:18 | PN ---
Progress Note (short form) - Note Progress Note: Pt seen ambulating in room from shower. Exam deferred - pt going to bathroom. More stabbing pain over weekend and currently, but able to tolerate regular/ bariatric diet. Had little bit of eggs this am. Having vaginal bleeding, was seen by [employer] [employer]. CT Monday showed increased inflammatory changes at cecum and terminal ileum, increase in localized air/contained perf with phlegmon. Plan yesterday was to pursue transfer to [facility] today, at patient's request, given potential need for surgical intervention and bariatric status. Vital Signs Period Temp Pulse Resp BP Sys/Rodriguez Pulse Ox Last 24 Hr 98.2 F-98.6 F 59-68 18-20 111-121/62-74 97 CBC, BMP 01/02/17 08:50 01/02/17 08:50 A/P: appendicitis with contained perforation/phlegmon increased pain over weekend, on diet CT with increased inflammation, contained air and phlegmon continue abx as per ID replete lytes prn also with [facility] bleeding as in past Pt desires transfer to [facility] to her bariatric surgical team for any possible intervention. Called and spoke with Ashia at [facility] at . Dr. Jonathon Barakat is in the OR, but is requested to call us back to discuss accepting her in transfer. Dr. Samaniego is aware. Problem List - Problems (1) Appendicitis with perforation Code(s): K35.2 - ACUTE APPENDICITIS WITH GENERALIZED PERITONITIS (2) Menorrhagia Code(s): N92.0 - EXCESSIVE AND FREQUENT MENSTRUATION WITH REGULAR CYCLE Qualifiers: Menorrahagia type: with irregular cycle Qualified Code(s): N92.1 - Excessive and frequent menstruation with irregular cycle (3) Anemia due to chronic blood loss Code(s): D50.0 - IRON DEFICIENCY ANEMIA SECONDARY TO BLOOD LOSS (CHRONIC) (4) Morbid obesity with BMI of 45.0-49.9, adult Code(s): E66.01 - MORBID (SEVERE) OBESITY DUE TO EXCESS CALORIES Z68.42 - BODY MASS INDEX (BMI) 45.0-49.9, ADULT (5) History of bariatric surgery Code(s): Z98.84 - BARIATRIC SURGERY STATUS
[2017-01-02 10:21] LABS: ANISOCYTOSIS 3+; HYPOCHROMIA 3+; MICROCYTOSIS 1+
[2017-01-02] MEDS: KETOROLAC TROMETHAMINE 30 MG/1 ML VIAL IVPB PRN ×2 (12:34→22:06)
--- NOTE | 2017-01-02 16:39 | PN ---
Progress Note, Physician History of Present Illness: patient is not feeling well says she has started having pain in the rt lower quadrant patient feels sick had to take pain medications patient was started on diet - Current Medication List Current Medications: Active Medications Acetaminophen (Tylenol Suppository -) 650 mg NE Q6H PRN PRN Reason: FEVER OR PAIN Last Admin: 12/26/16 22:29 Dose: 650 mg Alprazolam (Xanax -) 0.5 mg PO BID PRN Last Admin: 01/02/17 09:52 Dose: 0.5 mg Lactated Ringer's (Lactated Ringers Solution) 1,000 mls @ 125 mls/hr IV ASDIR DESMOND Last Admin: 01/01/17 22:27 Dose: 125 mls/hr Piperacillin Sod/Tazobactam (Sod 4.5 gm/ Sodium Chloride) 100 mls @ 200 mls/hr IVPB Q8H-IV DESMOND PRN Reason: Protocol Last Admin: 01/02/17 12:34 Dose: 200 mls/hr Ketorolac Tromethamine (Toradol Injection -) 30 mg IVPB Q6H PRN Stop: 01/06/17 00:21 Last Admin: 01/02/17 12:34 Dose: 30 mg Potassium Chloride (K-Dur -) 40 meq PO DAILY DESMOND Last Admin: 01/02/17 09:53 Dose: 40 meq - Objective Vital Signs: Vital Signs Temperature 98.4 F 01/02/17 15:05 Pulse Rate 66 01/02/17 15:05 Respiratory Rate 20 01/02/17 15:05 Blood Pressure 103/61 01/02/17 15:05 O2 Sat by Pulse Oximetry (%) 97 01/01/17 21:00 Constitutional: Yes: Calm, Moderate Distress, Obese (morbid) Eyes: Yes: Conjunctiva Clear Neck: Yes: Supple Cardiovascular: Yes: Regular Rate and Rhythm Respiratory: Yes: Regular, CTA Bilaterally Gastrointestinal: Yes: Soft, Tenderness (right lower quadrant) Musculoskeletal: Yes: WNL Extremities: Yes: WNL Neurological: Yes: Alert, Oriented Psychiatric: Yes: Alert, Oriented Labs: CBC, BMP 01/02/17 08:50 01/02/17 08:50 Assessment/Plan Problem List - Problems (1) Appendicitis with perforation Code(s): K35.2 - ACUTE APPENDICITIS WITH GENERALIZED PERITONITIS (2) Menorrhagia Code(s): N92.0 - EXCESSIVE AND FREQUENT MENSTRUATION WITH REGULAR CYCLE Qualifiers: Menorrahagia type: with irregular cycle Qualified Code(s): N92.1 - Excessive and frequent menstruation with irregular cycle (3) Anemia due to chronic blood loss Code(s): D50.0 - IRON DEFICIENCY ANEMIA SECONDARY TO BLOOD LOSS (CHRONIC) (4) Morbid obesity with BMI of 45.0-49.9, adult Code(s): E66.01 - MORBID (SEVERE) OBESITY DUE TO EXCESS CALORIES Z68.42 - BODY MASS INDEX (BMI) 45.0-49.9, ADULT (5) History of bariatric surgery Code(s): Z98.84 - BARIATRIC SURGERY STATUS plan i think patient should be kept completely npo will continue iv abx hydration patients pain has increased if patients pain increases she will need a repeat ct scan wbc is normal we will see tomorrow what the wbc shows
--- NOTE | 2017-01-02 17:32 | PN ---
Progress Note, Physician History of Present Illness: pain comes and goes - Current Medication List Current Medications: Active Medications Acetaminophen (Tylenol Suppository -) 650 mg [place] Q6H PRN PRN Reason: FEVER OR PAIN Last Admin: 12/26/16 22:29 Dose: 650 mg Alprazolam (Xanax -) 0.5 mg PO BID PRN Last Admin: 01/02/17 09:52 Dose: 0.5 mg Piperacillin Sod/Tazobactam (Sod 4.5 gm/ Sodium Chloride) 100 mls @ 200 mls/hr IVPB Q8H-IV DESMOND PRN Reason: Protocol Last Admin: 01/02/17 12:34 Dose: 200 mls/hr Ketorolac Tromethamine (Toradol Injection -) 30 mg IVPB Q6H PRN Stop: 01/06/17 00:21 Last Admin: 01/02/17 12:34 Dose: 30 mg Potassium Chloride (K-Dur -) 40 meq PO DAILY DESMOND Last Admin: 01/02/17 09:53 Dose: 40 meq - Objective Vital Signs: Vital Signs Temperature 98.4 F 01/02/17 15:05 Pulse Rate 66 01/02/17 15:05 Respiratory Rate 20 01/02/17 15:05 Blood Pressure 103/61 01/02/17 15:05 O2 Sat by Pulse Oximetry (%) 97 01/01/17 21:00 Constitutional: Yes: No Distress HENT: Yes: Atraumatic Neck: Yes: Supple Cardiovascular: Yes: Regular Rate and Rhythm Respiratory: Yes: CTA Bilaterally Gastrointestinal: Yes: Normal Bowel Sounds, Tenderness (mild) Extremities: Yes: WNL Neurological: Yes: Alert, Oriented Labs: CBC, BMP 01/02/17 08:50 01/02/17 08:50 Problem List - Problems (1) Appendicitis with perforation Assessment/Plan: npo.pt has pain ivf iv abx id consult surgery consult ct abd/pelvis done..PHLEGMON Code(s): K35.2 - ACUTE APPENDICITIS WITH GENERALIZED PERITONITIS (2) Menorrhagia Code(s): N92.0 - EXCESSIVE AND FREQUENT MENSTRUATION WITH REGULAR CYCLE Qualifiers: Menorrahagia type: with irregular cycle Qualified Code(s): N92.1 - Excessive and frequent menstruation with irregular cycle (3) Severe anemia Assessment/Plan: s/p prbc transfusion HGB BETTER Code(s): D64.9 - ANEMIA, UNSPECIFIED
[2017-01-02] MEDS: SODIUM CHLORIDE 1,000 ML IV SCH (17:46)
[2017-01-03] MEDS ORDERED: SODIUM CHLORIDE 100 ML IVPB ONE ×3 (00:41→18:11)
[2017-01-03] MEDS ORDERED: PIPERACILLIN/TAZOBACTAM 4.5 GM VIAL IVPB ONE ×3 (00:41→18:11)
[2017-01-03] MEDS: PIPERACILLIN/TAZOB 4.5 GM 4.5 GM in SODIUM CHLORIDE 100 ML IVPB SCH ×3 (02:31→18:17)
[2017-01-03] MEDS: SODIUM CHLORIDE 1,000 ML IV SCH ×2 (04:00→18:17)
[2017-01-03] MEDS: POTASSIUM CHLORIDE TABS 20 MEQ TABLET.ER (FP) PO SCH ×2 (09:13→09:15)
--- NOTE | 2017-01-03 11:47 | PN ---
Progress Note (short form) - Note Progress Note: Pt seen and examined in bed. Pain persists in RLQ, mostly when moving around. Having vaginal bleeding, was seen by [facility] [employer] [facility]. CT Monday showed increased inflammatory changes at cecum and terminal ileum, increase in localized air/ contained perf with phlegmon. She had been on diet, but was made NPO again later yesterday. Plan yesterday was for possible transfer to [facility]. Dr. Jonathon Barakat (bariatric surgeon) declined transfer as not acutely required, but requested that she continue antibiotics and see him as an outpatient. Vital Signs Period Temp Pulse Resp BP Sys/Rodriguez Pulse Ox Last 24 Hr 98.2 F-98.6 F 59-68 18-20 111-121/62-74 97 PE: abdomen morbidly obese, tender RLQ and referred from suprapubic as well, seems a bit more tender than last , not peritoneal + vaginal bleeding CBC, BMP 01/02/17 08:50 01/02/17 08:50 A/P: appendicitis with contained perforation/phlegmon increased pain and tenderness with CT showing increased inflammation, contained air and phlegmon - pt to remain NPO except essential meds with sips H2O continue abx as per ID replete lytes prn also with [employer] bleeding as in past - [facility] [employer] [facility] to f/u recommend psychiatry consult - pt still receptive to this recommended she make appt with Dr. Barakat while still here to minimize delay in obtaining one CD of CT scans provided to patient to take to outside doctors Problem List - Problems (1) Appendicitis with perforation Code(s): K35.2 - ACUTE APPENDICITIS WITH GENERALIZED PERITONITIS (2) Menorrhagia Code(s): N92.0 - EXCESSIVE AND FREQUENT MENSTRUATION WITH REGULAR CYCLE Qualifiers: Menorrahagia type: with irregular cycle Qualified Code(s): N92.1 - Excessive and frequent menstruation with irregular cycle (3) Anemia due to chronic blood loss Code(s): D50.0 - IRON DEFICIENCY ANEMIA SECONDARY TO BLOOD LOSS (CHRONIC) (4) Morbid obesity with BMI of 45.0-49.9, adult Code(s): E66.01 - MORBID (SEVERE) OBESITY DUE TO EXCESS CALORIES Z68.42 - BODY MASS INDEX (BMI) 45.0-49.9, ADULT (5) History of bariatric surgery Code(s): Z98.84 - BARIATRIC SURGERY STATUS
--- NOTE | 2017-01-03 15:11 | PN ---
Progress Note, Physician History of Present Illness: continues to have abd pain was not accepted by jeri - Current Medication List Current Medications: Active Medications Acetaminophen (Tylenol Suppository -) 650 mg [place] Q6H PRN PRN Reason: FEVER OR PAIN Last Admin: 12/26/16 22:29 Dose: 650 mg Piperacillin Sod/Tazobactam (Sod 4.5 gm/ Sodium Chloride) 100 mls @ 200 mls/hr IVPB Q8H-IV DESMOND PRN Reason: Protocol Last Admin: 01/03/17 09:13 Dose: 200 mls/hr Sodium Chloride (Normal Saline -) 1,000 mls @ 100 mls/hr IV ASDIR DESMOND Last Admin: 01/03/17 04:00 Dose: 100 mls/hr Ketorolac Tromethamine (Toradol Injection -) 30 mg IVPB Q6H PRN Stop: 01/06/17 00:21 Last Admin: 01/02/17 22:06 Dose: 30 mg Potassium Chloride (K-Dur -) 40 meq PO DAILY DESMOND Last Admin: 01/03/17 09:15 Dose: Not Given - Objective Vital Signs: Vital Signs Temperature 99.1 F 01/03/17 14:15 Pulse Rate 68 01/03/17 14:15 Respiratory Rate 18 01/03/17 10:00 Blood Pressure 126/74 01/03/17 14:15 O2 Sat by Pulse Oximetry (%) 97 01/02/17 20:11 Constitutional: Yes: No Distress, Calm, Obese HENT: Yes: Atraumatic Cardiovascular: Yes: Regular Rate and Rhythm Respiratory: Yes: Regular, CTA Bilaterally Gastrointestinal: Yes: Hypoactive Bowel Sounds, Tenderness (rlq) Musculoskeletal: Yes: WNL Extremities: Yes: WNL Neurological: Yes: Alert, Oriented Psychiatric: Yes: Alert, Oriented Labs: CBC, BMP 01/02/17 08:50 01/02/17 08:50 Assessment/Plan Problem List - Problems (1) Appendicitis with perforation Code(s): K35.2 - ACUTE APPENDICITIS WITH GENERALIZED PERITONITIS (2) Menorrhagia Code(s): N92.0 - EXCESSIVE AND FREQUENT MENSTRUATION WITH REGULAR CYCLE Qualifiers: Menorrahagia type: with irregular cycle Qualified Code(s): N92.1 - Excessive and frequent menstruation with irregular cycle (3) Anemia due to chronic blood loss Code(s): D50.0 - IRON DEFICIENCY ANEMIA SECONDARY TO BLOOD LOSS (CHRONIC) (4) Morbid obesity with BMI of 45.0-49.9, adult Code(s): E66.01 - MORBID (SEVERE) OBESITY DUE TO EXCESS CALORIES Z68.42 - BODY MASS INDEX (BMI) 45.0-49.9, ADULT (5) History of bariatric surgery Code(s): Z98.84 - BARIATRIC SURGERY STATUS plan continue current mgt hydration abx pain mgmt will check wbc tomorrow
--- NOTE | 2017-01-03 17:14 | PN ---
Progress Note, Physician History of Present Illness: pain comes and goes - Current Medication List Current Medications: Active Medications Acetaminophen (Tylenol Suppository -) 650 mg [place] Q6H PRN PRN Reason: FEVER OR PAIN Last Admin: 12/26/16 22:29 Dose: 650 mg Piperacillin Sod/Tazobactam (Sod 4.5 gm/ Sodium Chloride) 100 mls @ 200 mls/hr IVPB Q8H-IV DESMOND PRN Reason: Protocol Last Admin: 01/03/17 09:13 Dose: 200 mls/hr Sodium Chloride (Normal Saline -) 1,000 mls @ 100 mls/hr IV ASDIR DESMOND Last Admin: 01/03/17 04:00 Dose: 100 mls/hr Ketorolac Tromethamine (Toradol Injection -) 30 mg IVPB Q6H PRN Stop: 01/06/17 00:21 Last Admin: 01/02/17 22:06 Dose: 30 mg Potassium Chloride (K-Dur -) 40 meq PO DAILY DESMOND Last Admin: 01/03/17 09:15 Dose: Not Given - Objective Vital Signs: Vital Signs Temperature 99.1 F 01/03/17 14:15 Pulse Rate 68 01/03/17 14:15 Respiratory Rate 18 01/03/17 10:00 Blood Pressure 126/74 01/03/17 14:15 O2 Sat by Pulse Oximetry (%) 97 01/02/17 20:11 Constitutional: Yes: Calm HENT: Yes: Atraumatic Neck: Yes: Supple Cardiovascular: Yes: Regular Rate and Rhythm Respiratory: Yes: CTA Bilaterally Gastrointestinal: Yes: Normal Bowel Sounds, Tenderness (rlq) Extremities: Yes: WNL Neurological: Yes: Alert, Oriented Labs: CBC, BMP 01/02/17 08:50 01/02/17 08:50 Problem List - Problems (1) Appendicitis with perforation Assessment/Plan: npo.pt has pain ivf iv abx id consult surgery consult ct abd/pelvis done..PHLEGMON Code(s): K35.2 - ACUTE APPENDICITIS WITH GENERALIZED PERITONITIS (2) Menorrhagia Code(s): N92.0 - EXCESSIVE AND FREQUENT MENSTRUATION WITH REGULAR CYCLE Qualifiers: Menorrahagia type: with irregular cycle Qualified Code(s): N92.1 - Excessive and frequent menstruation with irregular cycle (3) Severe anemia Assessment/Plan: s/p prbc transfusion HGB BETTER Code(s): D64.9 - ANEMIA, UNSPECIFIED (4) Anxiety Assessment/Plan: psych consult on xanax Code(s): F41.9 - ANXIETY DISORDER, UNSPECIFIED Assessment/Plan spoke with dr blayne valero surgeon from [facility] [phone] he is saying he will not do surgery as pt has phlegmon, she should be on antibiotics and follow up with her as out pt
[2017-01-03] MEDS ORDERED: TRIPLE LUMEN FLUSH 4 ML ML IVPUSH PRN (17:30)
[2017-01-03] MEDS: KETOROLAC TROMETHAMINE 30 MG/1 ML VIAL IVPB PRN (19:57)
[2017-01-03] MEDS: ALPRAZolam 0.25 MG TABLET PO PRN (22:45)
[2017-01-04] MEDS ORDERED: SODIUM CHLORIDE 100 ML IVPB ONE ×3 (02:31→17:41)
[2017-01-04] MEDS ORDERED: PIPERACILLIN/TAZOBACTAM 4.5 GM VIAL IVPB ONE ×3 (02:31→17:41)
[2017-01-04] MEDS: PIPERACILLIN/TAZOB 4.5 GM 4.5 GM in SODIUM CHLORIDE 100 ML IVPB SCH ×3 (02:34→18:05)
[2017-01-04] MEDS: SODIUM CHLORIDE 1,000 ML IV SCH (05:00)
[2017-01-04 08:52] LABS: BASOPHIL 0.3 % (0-2.0); EOSINOPHIL 1.3 % (0-4.5); MCH 20.1 pg (25.7-33.7); MCHC 29.9 g/dl (32.0-36.0); MEAN CELL VOLUME 67.1 fl (80-96); MEAN PLT VOLUME 8.8 fl (7.5-11.1); NEUTROPHILS 83.6 % (42.8-82.8); PLATELET COUNT 208 K/MM3 (134-434); RDW 26.9 % (11.6-15.6); WHITE BLOOD COUNT 7.4 K/mm3 (4.0-10.0)
[2017-01-04] MEDS: POTASSIUM CHLORIDE TABS 20 MEQ TABLET.ER (FP) PO SCH (09:22)
[2017-01-04 09:27] LABS: ALBUMIN 2.3 g/dl (3.4-5.0); ANION GAP 10 (8-16); CALCIUM 8.2 mg/dL (8.5-10.1); CO2 25 mmol/L (21-32); GLUCOSE,RANDOM 55 mg/dL (74-106)
[2017-01-04 09:38] LABS: ALK PHOS 87 U/L (45-117); BILIRUBIN,TOTAL 0.7 mg/dL (0.2-1.0); CREATININE 0.4 mg/dL (0.55-1.02); SGOT/AST 15 U/L (15-37); SGPT/ALT 18 U/L (12-78); TOT PROT 5.9 g/dl (6.4-8.2)
--- NOTE | 2017-01-04 10:42 | PN ---
Progress Note (short form) - Note Progress Note: Pt seen and examined in bed. Still with RLQ pain but less than yesterday. Vaginal bleeding is decreasing as well. She is not sure if the pain is related to the bleeding or the appendix. She is back NPO except meds with sips of water. Spoke over the phone with patient's at her request. Vital Signs Period Temp Pulse Resp BP Sys/Rodriguez Pulse Ox Last 24 Hr 98.2 F-99.5 F 66-68 18-20 113-126/69-74 98 PE: abdomen morbidly obese, less tender RLQ and only focal, no suprapubic tenderness at this time CBC WBC 7.4 K/mm3 (4.0-10.0) 01/04/17 06:35 Corrected WBC (auto) Cancelled 01/04/17 06:35 RBC 4.04 M/mm3 (3.60-5.2) 01/04/17 06:35 Hgb 8.1 GM/dL (10.7-15.3) L 01/04/17 06:35 Hct 27.1 % (32.4-45.2) L 01/04/17 06:35 MCV 67.1 fl (80-96) L 01/04/17 06:35 MCH 20.1 pg (25.7-33.7) L 01/04/17 06:35 MCHC 29.9 g/dl (32.0-36.0) L 01/04/17 06:35 RDW 26.9 % (11.6-15.6) H 01/04/17 06:35 Plt Count 208 K/MM3 (134-434) 01/04/17 06:35 MPV 8.8 fl (7.5-11.1) 01/04/17 06:35 Neutrophils % 83.6 % (42.8-82.8) H 01/04/17 06:35 Lymphocytes % 8.4 % (8-40) D 01/04/17 06:35 Monocytes % 6.4 % (3.8-10.2) 01/04/17 06:35 Eosinophils % 1.3 % (0-4.5) 01/04/17 06:35 Basophils % 0.3 % (0-2.0) 01/04/17 06:35 Differential Comment Cancelled 01/04/17 06:35 Platelet Estimate Cancelled 01/04/17 06:35 Platelet Comment Cancelled 01/04/17 06:35 Platelet Comment Cancelled 01/04/17 06:35 RBC Morphology Cancelled 01/04/17 06:35 BMP 01/04/17 06:35 wbc 7, left shift decreasing glucose low this am, K slightly low A/P: appendicitis with contained perforation/phlegmon decreased pain and tenderness with change to NPO when pain/tenderness resolve, would retrial clears - pt could ultimately go home tolerating full liquids, not necessarily regular diet, to complete oral antibiotics; maintain NPO for now continue abx as per ID (currently day 10 Zosyn) replete lytes prn - fluids changed to maintenance D5-1/2NS + 20 K+ decreased [employer] bleeding psychiatry consulted recommended she make appt with Dr. Barakat/Niranjan while still here to minimize delay in obtaining one CD of CT scans provided to patient to take to outside doctors Problem List - Problems (1) Appendicitis with perforation Code(s): K35.2 - ACUTE APPENDICITIS WITH GENERALIZED PERITONITIS (2) Menorrhagia Code(s): N92.0 - EXCESSIVE AND FREQUENT MENSTRUATION WITH REGULAR CYCLE Qualifiers: Menorrahagia type: with irregular cycle Qualified Code(s): N92.1 - Excessive and frequent menstruation with irregular cycle (3) Anemia due to chronic blood loss Code(s): D50.0 - IRON DEFICIENCY ANEMIA SECONDARY TO BLOOD LOSS (CHRONIC) (4) Morbid obesity with BMI of 45.0-49.9, adult Code(s): E66.01 - MORBID (SEVERE) OBESITY DUE TO EXCESS CALORIES Z68.42 - BODY MASS INDEX (BMI) 45.0-49.9, ADULT (5) History of bariatric surgery Code(s): Z98.84 - BARIATRIC SURGERY STATUS
[2017-01-04] MEDS: D5-1/2NS+20 MEQ KCL - 1,000 ML IV SCH ×2 (11:07→20:30)
[2017-01-04] MEDS: ALPRAZolam 0.25 MG TABLET PO PRN (13:52)
--- NOTE | 2017-01-04 14:34 | CON.PSY ---
Psychiatry Consult Chief Complaint: i am not getting proper care from your staff. Thats why I am upset and having panic attacks. I have not had one in Four years. Symptoms: reports: Irritability, Inability to Control Temper - Previous Psychiatric Treatment Outpatient: Less than 6 mos ago Inpatient: One prior admission - Previous Substance Abuse Treatment Outpatient: None Inpatient: None - Reason for Previous Treatment Reason for Previous Treatment: Anxiety or Panic Disorder, Past Traumatic Stress - Current Medications Current Medications: Active Medications Acetaminophen (Tylenol Suppository -) 650 mg [place] Q6H PRN PRN Reason: FEVER OR PAIN Last Admin: 12/26/16 22:29 Dose: 650 mg Alprazolam (Xanax -) 0.5 mg PO BID PRN PRN Reason: ANXIETY Last Admin: 01/04/17 13:52 Dose: 0.5 mg IV Flush (Triple Lumen Flush) 4 ml IVPUSH PRN PRN PRN Reason: Protocol Piperacillin Sod/Tazobactam (Sod 4.5 gm/ Sodium Chloride) 100 mls @ 200 mls/hr IVPB Q8H-IV DESMOND PRN Reason: Protocol Last Admin: 01/04/17 09:19 Dose: 200 mls/hr Potassium Chloride/Dextrose/Sod Cl (D5-1/2ns+20 Meq Kcl -) 1,000 mls @ 100 mls/ hr IV ASDIR DESMOND Last Admin: 01/04/17 11:07 Dose: 100 mls/hr Ketorolac Tromethamine (Toradol Injection -) 30 mg IVPB Q6H PRN Stop: 01/06/17 00:21 Last Admin: 01/03/17 19:57 Dose: 30 mg Potassium Chloride (K-Dur -) 40 meq PO DAILY DESMOND Last Admin: 01/04/17 09:22 Dose: Not Given - Allergies Allergies: Allergies Allergy/AdvReac Type Severity Reaction Status Date / Time shellfish derived Allergy Severe Difficulty Verified 12/26/16 10:11 Breathing Fish Containing Products Allergy Verified 12/29/16 18:18 fish derived Allergy Verified 12/29/16 18:20 morphine Allergy Verified 12/26/16 13:46 - Current Living Status Usual Living Arrangement: With Spouse - Current Mental Status Evaluation Appearance: Well Groomed Attitude: Uncooperative - Affect Affect: Constrictive Appropriateness: Appropriate to Content - Mood Mood: Irritable - Speech/Language Expressive: Coherent - Psychomotor Activity Psychomotor Activity: Normal - Thought Process Thought Process: Intact - Thought Content Hallucinations: Absent Delusions: Absent - Self Perception Self Perception: No Impairment - Cognition Attention: Alert Orientation: Time Memory, Immediate Recall: Intact Memory, Remote: Intact - Concentration Serial Sevens Intact: Yes Simple Calculations Intact: Yes - Abstraction Proverb Interpretation: Intact Judgement: Minimally Impaired - Insight Insight: Intact - Impulse Control Impulse Control: Minimally Impaired - Suicidal Ideation Suicidal Ideation: No - Homicidal Ideation Homicidal Ideation: No Problem List - Problems (1) Personality disorder Code(s): F60.9 - PERSONALITY DISORDER, UNSPECIFIED Assessment/Plan 1) Patient does not want to on an SSRI for panic Disaorder. 2) continue with XAnax PRN. #) WILL see her pvt MD after discharge.
--- NOTE | 2017-01-04 14:41 | PN ---
Progress Note, Physician History of Present Illness: continues to have abd pain was not accepted by [facility] pain still having pain - Current Medication List Current Medications: Active Medications Acetaminophen (Tylenol Suppository -) 650 mg [place] Q6H PRN PRN Reason: FEVER OR PAIN Last Admin: 12/26/16 22:29 Dose: 650 mg Alprazolam (Xanax -) 0.5 mg PO BID PRN PRN Reason: ANXIETY Last Admin: 01/04/17 13:52 Dose: 0.5 mg IV Flush (Triple Lumen Flush) 4 ml IVPUSH PRN PRN PRN Reason: Protocol Piperacillin Sod/Tazobactam (Sod 4.5 gm/ Sodium Chloride) 100 mls @ 200 mls/hr IVPB Q8H-IV DESMOND PRN Reason: Protocol Last Admin: 01/04/17 09:19 Dose: 200 mls/hr Potassium Chloride/Dextrose/Sod Cl (D5-1/2ns+20 Meq Kcl -) 1,000 mls @ 100 mls/ hr IV ASDIR DESMOND Last Admin: 01/04/17 11:07 Dose: 100 mls/hr Ketorolac Tromethamine (Toradol Injection -) 30 mg IVPB Q6H PRN Stop: 01/06/17 00:21 Last Admin: 01/03/17 19:57 Dose: 30 mg Potassium Chloride (K-Dur -) 40 meq PO DAILY DESMOND Last Admin: 01/04/17 09:22 Dose: Not Given - Objective Vital Signs: Vital Signs Temperature 97.4 F L 01/04/17 13:55 Pulse Rate 65 01/04/17 13:55 Respiratory Rate 20 01/04/17 05:30 Blood Pressure 112/58 01/04/17 13:55 O2 Sat by Pulse Oximetry (%) 98 01/03/17 20:19 Constitutional: Yes: No Distress, Calm, Obese Eyes: Yes: Conjunctiva Clear HENT: Yes: Atraumatic Neck: Yes: Supple Cardiovascular: Yes: Regular Rate and Rhythm Respiratory: Yes: Regular, CTA Bilaterally Gastrointestinal: Yes: Normal Bowel Sounds, Soft Musculoskeletal: Yes: WNL Neurological: Yes: Alert, Oriented Psychiatric: Yes: Alert, Oriented Labs: CBC, BMP 01/04/17 06:35 01/04/17 06:35 Assessment/Plan Problem List - Problems (1) Appendicitis with perforation Code(s): K35.2 - ACUTE APPENDICITIS WITH GENERALIZED PERITONITIS (2) Menorrhagia Code(s): N92.0 - EXCESSIVE AND FREQUENT MENSTRUATION WITH REGULAR CYCLE Qualifiers: Menorrahagia type: with irregular cycle Qualified Code(s): N92.1 - Excessive and frequent menstruation with irregular cycle (3) Anemia due to chronic blood loss Code(s): D50.0 - IRON DEFICIENCY ANEMIA SECONDARY TO BLOOD LOSS (CHRONIC) (4) Morbid obesity with BMI of 45.0-49.9, adult Code(s): E66.01 - MORBID (SEVERE) OBESITY DUE TO EXCESS CALORIES Z68.42 - BODY MASS INDEX (BMI) 45.0-49.9, ADULT (5) History of bariatric surgery Code(s): Z98.84 - BARIATRIC SURGERY STATUS plan continue current mgt once patients pain is better will give oral abx a try patient still wiht pain
--- NOTE | 2017-01-04 19:50 | PN ---
Progress Note, Physician History of Present Illness: STILL HAS ABDOMINAL PAIN NPO - Current Medication List Current Medications: Active Medications Acetaminophen (Tylenol Suppository -) 650 mg MD Q6H PRN PRN Reason: FEVER OR PAIN Last Admin: 12/26/16 22:29 Dose: 650 mg Alprazolam (Xanax -) 0.5 mg PO BID PRN PRN Reason: ANXIETY Last Admin: 01/04/17 13:52 Dose: 0.5 mg IV Flush (Triple Lumen Flush) 4 ml IVPUSH PRN PRN PRN Reason: Protocol Piperacillin Sod/Tazobactam (Sod 4.5 gm/ Sodium Chloride) 100 mls @ 200 mls/hr IVPB Q8H-IV DESMOND PRN Reason: Protocol Last Admin: 01/04/17 18:05 Dose: 200 mls/hr Potassium Chloride/Dextrose/Sod Cl (D5-1/2ns+20 Meq Kcl -) 1,000 mls @ 100 mls/ hr IV ASDIR DESMOND Last Admin: 01/04/17 11:07 Dose: 100 mls/hr Ketorolac Tromethamine (Toradol Injection -) 30 mg IVPB Q6H PRN Stop: 01/06/17 00:21 Last Admin: 01/03/17 19:57 Dose: 30 mg Potassium Chloride (K-Dur -) 40 meq PO DAILY DESMOND Last Admin: 01/04/17 09:22 Dose: Not Given - Objective Vital Signs: Vital Signs Temperature 97.4 F L 01/04/17 13:55 Pulse Rate 65 01/04/17 13:55 Respiratory Rate 18 01/04/17 08:00 Blood Pressure 112/58 01/04/17 13:55 O2 Sat by Pulse Oximetry (%) 97 01/04/17 09:00 Constitutional: Yes: No Distress HENT: Yes: Atraumatic Neck: Yes: Supple Cardiovascular: Yes: Regular Rate and Rhythm Respiratory: Yes: CTA Bilaterally Gastrointestinal: Yes: Normal Bowel Sounds, Tenderness (RLQ..MILD) Extremities: Yes: WNL Neurological: Yes: Alert, Oriented Labs: CBC, BMP 01/04/17 06:35 01/04/17 06:35 Problem List - Problems (1) Appendicitis with perforation Assessment/Plan: npo.pt has pain ivf iv abx id consult surgery consult ct abd/pelvis done..PHLEGMON Code(s): K35.2 - ACUTE APPENDICITIS WITH GENERALIZED PERITONITIS (2) Menorrhagia Code(s): N92.0 - EXCESSIVE AND FREQUENT MENSTRUATION WITH REGULAR CYCLE Qualifiers: Menorrahagia type: with irregular cycle Qualified Code(s): N92.1 - Excessive and frequent menstruation with irregular cycle (3) Severe anemia Assessment/Plan: s/p prbc transfusion HGB STABLE Code(s): D64.9 - ANEMIA, UNSPECIFIED (4) Anxiety Assessment/Plan: psych consult REVIEWED on xanax Code(s): F41.9 - ANXIETY DISORDER, UNSPECIFIED
[2017-01-04] MEDS: KETOROLAC TROMETHAMINE 30 MG/1 ML VIAL IVPB PRN (20:17)
[2017-01-05] MEDS ORDERED: PIPERACILLIN/TAZOBACTAM 4.5 GM VIAL IVPB ONE ×2 (02:57→09:11)
[2017-01-05] MEDS: PIPERACILLIN/TAZOB 4.5 GM 4.5 GM in SODIUM CHLORIDE 100 ML IVPB SCH ×3 (02:58→18:09)
[2017-01-05] MEDS ORDERED: SODIUM CHLORIDE 100 ML IVPB ONE ×2 (02:58→09:12)
[2017-01-05] MEDS: D5-1/2NS+20 MEQ KCL - 1,000 ML IV SCH ×3 (06:40→20:34)
[2017-01-05] MEDS: POTASSIUM CHLORIDE TABS 20 MEQ TABLET.ER (FP) PO SCH (09:13)
[2017-01-05 11:05] LABS: BASOPHIL 0.3 % (0-2.0); EOSINOPHIL 1.6 % (0-4.5); MCH 20.5 pg (25.7-33.7); MCHC 30.4 g/dl (32.0-36.0); MEAN CELL VOLUME 67.5 fl (80-96); MEAN PLT VOLUME 9.3 fl (7.5-11.1); NEUTROPHILS 82.4 % (42.8-82.8); PLATELET COUNT 241 K/MM3 (134-434); RDW 26.4 % (11.6-15.6); WHITE BLOOD COUNT 7.5 K/mm3 (4.0-10.0)
[2017-01-05 11:27] LABS: ANION GAP 8 (8-16); CO2 26 mmol/L (21-32); CREATININE 0.4 mg/dL (0.55-1.02); GLUCOSE,RANDOM 74 mg/dL (74-106)
--- NOTE | 2017-01-05 11:40 | PN ---
Progress Note (short form) - Note Progress Note: Pt seen and examined in bed. RLQ pain better, mainly when getting up/in-out of bed. Vaginal bleeding is decreasing as well. She has been NPO except meds with sips of water, on IV fluids. Labs drawn this am, chem results pending. Pt wants to shower. Ambulates to bathroom but not in halls. Vital Signs Period Temp Pulse Resp BP Sys/Rodriguez Pulse Ox Last 24 Hr 97.4 F-98.8 F 65-72 18-20 95-137/52-74 96-97 PE: abdomen morbidly obese, focally less tender RLQ, no suprapubic tenderness peripheral IV in left hand CBC, BMP 01/05/17 06:40 BMP pending A/P: appendicitis with contained perforation/phlegmon decreased pain and tenderness but still present maintain NPO with IVF wbc 7.5 continue abx as per ID (currently day 11 Zosyn) replete lytes prn decreased [employer] bleeding psychiatry consult noted will repeat CT with PO contrast - ordered if drainable abscess, could discuss with IR for percutaneous drainage if improvement in inflammation/phlegmon, could trial clears for possible d/c home on full liquids to complete antibiotic course orally with short follow up with Dr. Barakat at [facility] However, if no improvement or worsening noted, and even in above instances, pt is failing antibiotic therapy at almost two weeks of IV abx. At this point, strongly recommend transfer to [facility]/bariatric center, as surgical intervention is still a possibility, which should be undertaken at bariatric center as discussed previously. I spoke with Dr. Sheron Gonzalez, vice president of software development at [facility] (through the soda column operator), who agrees and will discuss with general surgical team there about patient. They will get back to me about possible transfer and who would accept patient. discussed with Dr. Samaniego Problem List - Problems (1) Appendicitis with perforation Code(s): K35.2 - ACUTE APPENDICITIS WITH GENERALIZED PERITONITIS (2) Menorrhagia Code(s): N92.0 - EXCESSIVE AND FREQUENT MENSTRUATION WITH REGULAR CYCLE Qualifiers: Menorrahagia type: with irregular cycle Qualified Code(s): N92.1 - Excessive and frequent menstruation with irregular cycle (3) Anemia due to chronic blood loss Code(s): D50.0 - IRON DEFICIENCY ANEMIA SECONDARY TO BLOOD LOSS (CHRONIC) (4) Morbid obesity with BMI of 45.0-49.9, adult Code(s): E66.01 - MORBID (SEVERE) OBESITY DUE TO EXCESS CALORIES Z68.42 - BODY MASS INDEX (BMI) 45.0-49.9, ADULT (5) History of bariatric surgery Code(s): Z98.84 - BARIATRIC SURGERY STATUS
--- NOTE | 2017-01-05 15:42 | PN ---
Progress Note, Physician History of Present Illness: continues to have abd pain abd pain slightly better - Current Medication List Current Medications: Active Medications Acetaminophen (Tylenol Suppository -) 650 mg [place] Q6H PRN PRN Reason: FEVER OR PAIN Last Admin: 12/26/16 22:29 Dose: 650 mg Alprazolam (Xanax -) 0.5 mg PO BID PRN PRN Reason: ANXIETY Last Admin: 01/04/17 13:52 Dose: 0.5 mg IV Flush (Triple Lumen Flush) 4 ml IVPUSH PRN PRN PRN Reason: Protocol Piperacillin Sod/Tazobactam (Sod 4.5 gm/ Sodium Chloride) 100 mls @ 200 mls/hr IVPB Q8H-IV DESMOND PRN Reason: Protocol Last Admin: 01/05/17 09:15 Dose: 200 mls/hr Potassium Chloride/Dextrose/Sod Cl (D5-1/2ns+20 Meq Kcl -) 1,000 mls @ 100 mls/ hr IV ASDIR DESMOND Last Admin: 01/05/17 06:40 Dose: 100 mls/hr Ketorolac Tromethamine (Toradol Injection -) 30 mg IVPB Q6H PRN Stop: 01/06/17 00:21 Last Admin: 01/04/17 20:17 Dose: 30 mg Potassium Chloride (K-Dur -) 40 meq PO DAILY DESMOND Last Admin: 01/05/17 09:13 Dose: Not Given - Objective Vital Signs: Vital Signs Temperature 98.6 F 01/05/17 14:22 Pulse Rate 64 01/05/17 14:22 Respiratory Rate 18 01/05/17 08:00 Blood Pressure 109/58 01/05/17 14:22 O2 Sat by Pulse Oximetry (%) 97 01/05/17 09:00 Constitutional: Yes: Calm, Mild Distress, Obese Neck: Yes: Supple Cardiovascular: Yes: Regular Rate and Rhythm Respiratory: Yes: Regular, CTA Bilaterally Gastrointestinal: Yes: Soft, Hypoactive Bowel Sounds, Tenderness (rlq) Musculoskeletal: Yes: WNL Extremities: Yes: WNL Neurological: Yes: Alert, Oriented Psychiatric: Yes: Alert, Oriented Labs: CBC, BMP 01/05/17 06:40 01/05/17 06:40 - ....Imaging Cat Scan: Report Reviewed, Image Reviewed Assessment/Plan Problem List - Problems (1) Appendicitis with perforation Code(s): K35.2 - ACUTE APPENDICITIS WITH GENERALIZED PERITONITIS (2) Menorrhagia Code(s): N92.0 - EXCESSIVE AND FREQUENT MENSTRUATION WITH REGULAR CYCLE Qualifiers: Menorrahagia type: with irregular cycle Qualified Code(s): N92.1 - Excessive and frequent menstruation with irregular cycle (3) Anemia due to chronic blood loss Code(s): D50.0 - IRON DEFICIENCY ANEMIA SECONDARY TO BLOOD LOSS (CHRONIC) (4) Morbid obesity with BMI of 45.0-49.9, adult Code(s): E66.01 - MORBID (SEVERE) OBESITY DUE TO EXCESS CALORIES Z68.42 - BODY MASS INDEX (BMI) 45.0-49.9, ADULT (5) History of bariatric surgery Code(s): Z98.84 - BARIATRIC SURGERY STATUS plan continue current mgt will consider switching to oral abx tomorrow
[2017-01-05] MEDS: KETOROLAC TROMETHAMINE 30 MG/1 ML VIAL IVPB PRN ×2 (16:31→22:49)
--- NOTE | 2017-01-05 17:24 | PN ---
Progress Note, Physician History of Present Illness: STILL HAS ABDOMINAL PAIN NPO - Current Medication List Current Medications: Active Medications Acetaminophen (Tylenol Suppository -) 650 mg [place] Q6H PRN PRN Reason: FEVER OR PAIN Last Admin: 12/26/16 22:29 Dose: 650 mg Alprazolam (Xanax -) 0.5 mg PO BID PRN PRN Reason: ANXIETY Last Admin: 01/04/17 13:52 Dose: 0.5 mg IV Flush (Triple Lumen Flush) 4 ml IVPUSH PRN PRN PRN Reason: Protocol Piperacillin Sod/Tazobactam (Sod 4.5 gm/ Sodium Chloride) 100 mls @ 200 mls/hr IVPB Q8H-IV DESMOND PRN Reason: Protocol Last Admin: 01/05/17 09:15 Dose: 200 mls/hr Potassium Chloride/Dextrose/Sod Cl (D5-1/2ns+20 Meq Kcl -) 1,000 mls @ 100 mls/ hr IV ASDIR DESMOND Last Admin: 01/05/17 06:40 Dose: 100 mls/hr Ketorolac Tromethamine (Toradol Injection -) 30 mg IVPB Q6H PRN Stop: 01/06/17 00:21 Last Admin: 01/05/17 16:31 Dose: 30 mg Potassium Chloride (K-Dur -) 40 meq PO DAILY DESMOND Last Admin: 01/05/17 09:13 Dose: Not Given - Objective Vital Signs: Vital Signs Temperature 98.6 F 01/05/17 14:22 Pulse Rate 64 01/05/17 14:22 Respiratory Rate 18 01/05/17 08:00 Blood Pressure 109/58 01/05/17 14:22 O2 Sat by Pulse Oximetry (%) 97 01/05/17 09:00 Constitutional: Yes: Anxious HENT: Yes: Atraumatic Neck: Yes: Supple Cardiovascular: Yes: Regular Rate and Rhythm Respiratory: Yes: CTA Bilaterally Gastrointestinal: Yes: Normal Bowel Sounds Extremities: Yes: WNL Edema: No Peripheral Pulses WNL: Yes Neurological: Yes: Alert, Oriented Labs: CBC, BMP 01/05/17 06:40 01/05/17 06:40 Problem List - Problems (1) Appendicitis with perforation Assessment/Plan: npo.pt has pain ivf iv abx id consult surgery consult REPEAT CT DONE, PHLEGMON PRESENT BUT NOT WORSENING NEED TO KNOW FURTHER PLANS FROM SURGERY Code(s): K35.2 - ACUTE APPENDICITIS WITH GENERALIZED PERITONITIS (2) Menorrhagia Code(s): N92.0 - EXCESSIVE AND FREQUENT MENSTRUATION WITH REGULAR CYCLE Qualifiers: Menorrahagia type: with irregular cycle Qualified Code(s): N92.1 - Excessive and frequent menstruation with irregular cycle (3) Severe anemia Assessment/Plan: s/p prbc transfusion HGB STABLE Code(s): D64.9 - ANEMIA, UNSPECIFIED (4) Anxiety Assessment/Plan: psych consult REVIEWED on xanax Code(s): F41.9 - ANXIETY DISORDER, UNSPECIFIED (5) Anemia due to chronic blood loss Code(s): D50.0 - IRON DEFICIENCY ANEMIA SECONDARY TO BLOOD LOSS (CHRONIC) (6) History of bariatric surgery Code(s): Z98.84 - BARIATRIC SURGERY STATUS (7) Morbid obesity with BMI of 45.0-49.9, adult Code(s): E66.01 - MORBID (SEVERE) OBESITY DUE TO EXCESS CALORIES Z68.42 - BODY MASS INDEX (BMI) 45.0-49.9, ADULT (8) Dysmenorrhea Code(s): N94.6 - DYSMENORRHEA, UNSPECIFIED
[2017-01-05] MEDS ORDERED: PT OWN MED DRAWER 7, Y5N ONE (17:39)
[2017-01-06] MEDS ORDERED: PIPERACILLIN/TAZOBACTAM 4.5 GM VIAL IVPB ONE ×2 (01:39→10:25)
[2017-01-06] MEDS ORDERED: SODIUM CHLORIDE 100 ML IVPB ONE ×2 (01:39→10:25)
[2017-01-06] MEDS: PIPERACILLIN/TAZOB 4.5 GM 4.5 GM in SODIUM CHLORIDE 100 ML IVPB SCH ×2 (01:41→10:29)
[2017-01-06] MEDS: D5-1/2NS+20 MEQ KCL - 1,000 ML IV SCH ×2 (05:50→10:30)
[2017-01-06] MEDS: KETOROLAC TROMETHAMINE 30 MG/1 ML VIAL IVPB PRN ×2 (07:59→18:33)
--- NOTE | 2017-01-06 10:02 | PN ---
Progress Note (short form) - Note Progress Note: Pt seen and examined in bed. RLQ pain has been intermittent and stabbing, responded well to nonnarcotic pain med via IV. Pt wants to shower. Ambulates to bathroom but not in halls. Taking ice chips. States her usual diet is mainly liquids and shakes and not much solid food since her surgery anyway. Is trying to get outpt appt to f/u with [facility] soon. Vital Signs Period Temp Pulse Resp BP Sys/Rodriguez Pulse Ox Last 24 Hr 98.4 F-98.9 F 64-66 20-20 102-127/54-70 98 PE: abdomen morbidly obese, focally tender RLQ, similar to previous no significant pain ~2.5 hrs after pain med peripheral IV in left hand no new labs A/P: appendicitis with contained perforation/phlegmon mild pain and tenderness, improved from weekend, stable last couple days CT yesterday shows no worsening, inflammatory changes present, likely slowly resolving phlegmonous changes RLQ, no extravasation of contrast continue abx as per ID (day 12) - likely change to oral today will start clears and then fulls as tolerated recommend changing pain meds to po if doing well with liquids and nonnarcotic pain meds, can maintain hydration and take oral antibiotics to complete course, would anticipate possible d/c home tomorrow with short followup at [facility] (Yesterday, I spoke with Dr. Sheron Gonzalez, surgical assistant certified at [facility] (through the [employer] weapons equipment operator), who was going to discuss possible transfer with surgical team, but no one ever called back. Could not reach attending surgeon front desk supervisor diecast machine operator or pager.) Problem List - Problems (1) Appendicitis with perforation Code(s): K35.2 - ACUTE APPENDICITIS WITH GENERALIZED PERITONITIS (2) Menorrhagia Code(s): N92.0 - EXCESSIVE AND FREQUENT MENSTRUATION WITH REGULAR CYCLE Qualifiers: Menorrahagia type: with irregular cycle Qualified Code(s): N92.1 - Excessive and frequent menstruation with irregular cycle (3) Anemia due to chronic blood loss Code(s): D50.0 - IRON DEFICIENCY ANEMIA SECONDARY TO BLOOD LOSS (CHRONIC) (4) Morbid obesity with BMI of 45.0-49.9, adult Code(s): E66.01 - MORBID (SEVERE) OBESITY DUE TO EXCESS CALORIES Z68.42 - BODY MASS INDEX (BMI) 45.0-49.9, ADULT (5) History of bariatric surgery Code(s): Z98.84 - BARIATRIC SURGERY STATUS
[2017-01-06] MEDS: POTASSIUM CHLORIDE TABS 20 MEQ TABLET.ER (FP) PO SCH (10:28)
--- NOTE | 2017-01-06 13:29 | PN ---
Progress Note, Physician History of Present Illness: patient feeling better pain better has been started on liquid diet - Current Medication List Current Medications: Active Medications Acetaminophen (Tylenol Suppository -) 650 mg [place] Q6H PRN PRN Reason: FEVER OR PAIN Last Admin: 12/26/16 22:29 Dose: 650 mg Alprazolam (Xanax -) 0.5 mg PO BID PRN PRN Reason: ANXIETY Last Admin: 01/04/17 13:52 Dose: 0.5 mg IV Flush (Triple Lumen Flush) 4 ml IVPUSH PRN PRN PRN Reason: Protocol Piperacillin Sod/Tazobactam (Sod 4.5 gm/ Sodium Chloride) 100 mls @ 200 mls/hr IVPB Q8H-IV DESMOND PRN Reason: Protocol Last Admin: 01/06/17 10:29 Dose: 200 mls/hr Potassium Chloride/Dextrose/Sod Cl (D5-1/2ns+20 Meq Kcl -) 1,000 mls @ 100 mls/ hr IV ASDIR DESMOND Last Admin: 01/06/17 10:30 Dose: 100 mls/hr Ketorolac Tromethamine (Toradol Injection -) 30 mg IVPB Q6H PRN Stop: 01/11/17 07:44 Last Admin: 01/06/17 07:59 Dose: 30 mg Potassium Chloride (K-Dur -) 40 meq PO DAILY DESMOND Last Admin: 01/06/17 10:28 Dose: Not Given - Objective Vital Signs: Vital Signs Temperature 98.9 F 01/06/17 05:30 Pulse Rate 66 01/06/17 05:30 Respiratory Rate 20 01/06/17 09:00 Blood Pressure 127/70 01/06/17 05:30 O2 Sat by Pulse Oximetry (%) 98 01/06/17 09:00 Constitutional: Yes: No Distress, Calm, Obese Cardiovascular: Yes: Regular Rate and Rhythm Respiratory: Yes: Regular, CTA Bilaterally Gastrointestinal: Yes: Soft, Tenderness (minimal) Musculoskeletal: Yes: WNL Extremities: Yes: WNL Neurological: Yes: Alert, Oriented Psychiatric: Yes: Alert, Oriented Labs: CBC, BMP 01/05/17 06:40 01/05/17 06:40 Assessment/Plan Problem List - Problems (1) Appendicitis with perforation Code(s): K35.2 - ACUTE APPENDICITIS WITH GENERALIZED PERITONITIS (2) Menorrhagia Code(s): N92.0 - EXCESSIVE AND FREQUENT MENSTRUATION WITH REGULAR CYCLE Qualifiers: Menorrahagia type: with irregular cycle Qualified Code(s): N92.1 - Excessive and frequent menstruation with irregular cycle (3) Anemia due to chronic blood loss Code(s): D50.0 - IRON DEFICIENCY ANEMIA SECONDARY TO BLOOD LOSS (CHRONIC) (4) Morbid obesity with BMI of 45.0-49.9, adult Code(s): E66.01 - MORBID (SEVERE) OBESITY DUE TO EXCESS CALORIES Z68.42 - BODY MASS INDEX (BMI) 45.0-49.9, ADULT (5) History of bariatric surgery Code(s): Z98.84 - BARIATRIC SURGERY STATUS plan switched to oral abx patient started on liquids we will give oral abx for another 7 days
[2017-01-06] MEDS: LEVOFLOXACIN 250 MG TABLET (FP) PO SCH (14:16)
[2017-01-06] MEDS: metroNIDAZOLE 250 MG TABLET PO SCH ×2 (14:34→21:11)
[2017-01-06] MEDS: ALPRAZolam 0.25 MG TABLET PO PRN (15:40)
--- NOTE | 2017-01-06 19:13 | PN ---
Progress Note, Physician History of Present Illness: feeling better - Current Medication List Current Medications: Active Medications Alprazolam (Xanax -) 0.5 mg PO BID PRN PRN Reason: ANXIETY Last Admin: 01/06/17 15:40 Dose: 0.5 mg IV Flush (Triple Lumen Flush) 4 ml IVPUSH PRN PRN PRN Reason: Protocol Ibuprofen (Motrin -) 600 mg PO Q8H PRN PRN Reason: PAIN Levofloxacin (Levaquin -) 750 mg PO DAILY@0600 [facility] Last Admin: 01/06/17 14:16 Dose: 750 mg Metronidazole (Flagyl -) 500 mg PO TID [facility] Last Admin: 01/06/17 14:34 Dose: 500 mg Potassium Chloride (K-Dur -) 40 meq PO DAILY [facility] Last Admin: 01/06/17 10:28 Dose: Not Given - Objective Vital Signs: Vital Signs Temperature 98.2 F 01/06/17 14:40 Pulse Rate 70 01/06/17 14:40 Respiratory Rate 20 01/06/17 09:00 Blood Pressure 115/60 01/06/17 14:40 O2 Sat by Pulse Oximetry (%) 98 01/06/17 09:00 Constitutional: Yes: No Distress HENT: Yes: Atraumatic Neck: Yes: Supple Cardiovascular: Yes: Regular Rate and Rhythm Respiratory: Yes: CTA Bilaterally Gastrointestinal: Yes: Normal Bowel Sounds, Tenderness (minimal rlq) Extremities: Yes: WNL Neurological: Yes: Alert, Oriented Labs: CBC, BMP 01/05/17 06:40 01/05/17 06:40 Problem List - Problems (1) Appendicitis with perforation Assessment/Plan: on po abx and po pain meds full liquid diet Code(s): K35.2 - ACUTE APPENDICITIS WITH GENERALIZED PERITONITIS (2) Menorrhagia Code(s): N92.0 - EXCESSIVE AND FREQUENT MENSTRUATION WITH REGULAR CYCLE Qualifiers: Menorrahagia type: with irregular cycle Qualified Code(s): N92.1 - Excessive and frequent menstruation with irregular cycle (3) Severe anemia Assessment/Plan: s/p prbc transfusion HGB STABLE Code(s): D64.9 - ANEMIA, UNSPECIFIED (4) Anxiety Assessment/Plan: psych consult REVIEWED on xanax Code(s): F41.9 - ANXIETY DISORDER, UNSPECIFIED (5) Anemia due to chronic blood loss Code(s): D50.0 - IRON DEFICIENCY ANEMIA SECONDARY TO BLOOD LOSS (CHRONIC) (6) History of bariatric surgery Code(s): Z98.84 - BARIATRIC SURGERY STATUS (7) Morbid obesity with BMI of 45.0-49.9, adult Code(s): E66.01 - MORBID (SEVERE) OBESITY DUE TO EXCESS CALORIES Z68.42 - BODY MASS INDEX (BMI) 45.0-49.9, ADULT (8) Dysmenorrhea Code(s): N94.6 - DYSMENORRHEA, UNSPECIFIED Assessment/Plan dc in am if tolerating diet
[2017-01-07] MEDS: IBUPROFEN 600 MG TABLET (FP) PO PRN ×2 (00:59→14:13)
[2017-01-07] MEDS: LEVOFLOXACIN 250 MG TABLET (FP) PO SCH (05:57)
[2017-01-07] MEDS: metroNIDAZOLE 250 MG TABLET PO SCH ×2 (05:57→14:10)
[2017-01-07 07:46] LABS: BASOPHIL 0.4 % (0-2.0); EOSINOPHIL 0.6 % (0-4.5); MCH 20.7 pg (25.7-33.7); MCHC 31.1 g/dl (32.0-36.0); MEAN CELL VOLUME 66.6 fl (80-96); NEUTROPHILS 81.3 % (42.8-82.8); PLATELET COUNT 285 K/MM3 (134-434); RDW 26.3 % (11.6-15.6); WHITE BLOOD COUNT 7.6 K/mm3 (4.0-10.0)
--- NOTE | 2017-01-07 07:52 | PN ---
Progress Note (short form) - Note Progress Note: Pt seen ambulating in [place] to shower. Pain is minimal, using ibuprofen mainly for back. Still with mild focal tenderness, but overall better. Tolerating full liquids and oral antibiotics. Will f/u with [facility] this week. Vital Signs Period Temp Pulse Resp BP Sys/Rodriguez Pulse Ox Last 24 Hr 98.2 F-98.4 F 70-80 20-20 115-142/60-70 98-98 PE: deferred - not seen in room labs pending A/P: appendicitis with contained perforation/phlegmon HD13 pain and tenderness much improved tolerating full liquids on po antibiotics minimal/nonnarcotic pain meds d/c home today on abx per ID with short followup at [facility] Thank you for the opportunity to participate in the care of this patient. Problem List - Problems (1) Appendicitis with perforation Code(s): K35.2 - ACUTE APPENDICITIS WITH GENERALIZED PERITONITIS (2) Menorrhagia Code(s): N92.0 - EXCESSIVE AND FREQUENT MENSTRUATION WITH REGULAR CYCLE Qualifiers: Menorrahagia type: with irregular cycle Qualified Code(s): N92.1 - Excessive and frequent menstruation with irregular cycle (3) Anemia due to chronic blood loss Code(s): D50.0 - IRON DEFICIENCY ANEMIA SECONDARY TO BLOOD LOSS (CHRONIC) (4) Morbid obesity with BMI of 45.0-49.9, adult Code(s): E66.01 - MORBID (SEVERE) OBESITY DUE TO EXCESS CALORIES Z68.42 - BODY MASS INDEX (BMI) 45.0-49.9, ADULT (5) History of bariatric surgery Code(s): Z98.84 - BARIATRIC SURGERY STATUS
[2017-01-07 08:16] VITALS: BP 118/61; PULSE 82; TEMP 97.6
[2017-01-07 08:24] LABS: ALBUMIN 2.1 g/dl (3.4-5.0); ANION GAP 9 (8-16); BILIRUBIN,TOTAL 0.6 mg/dL (0.2-1.0); CALCIUM 8.2 mg/dL (8.5-10.1); CO2 24 mmol/L (21-32); CREATININE 0.4 mg/dL (0.55-1.02); GLUCOSE,RANDOM 88 mg/dL (74-106); SGOT/AST 18 U/L (15-37); SGPT/ALT 14 U/L (12-78); TOT PROT 5.9 g/dl (6.4-8.2)
[2017-01-07 08:25] LABS: ALK PHOS 72 U/L (45-117)
--- NOTE | 2017-01-07 10:32 | PN ---
Progress Note, Physician History of Present Illness: patient feeling better pain better started on oral medications no complaints - Current Medication List Current Medications: Active Medications IV Flush (Triple Lumen Flush) 4 ml IVPUSH PRN PRN PRN Reason: Protocol Ibuprofen (Motrin -) 600 mg PO Q8H PRN PRN Reason: PAIN Last Admin: 01/07/17 00:59 Dose: 600 mg Levofloxacin (Levaquin -) 750 mg PO DAILY@0600 [facility] Last Admin: 01/07/17 05:57 Dose: 750 mg Metronidazole (Flagyl -) 500 mg PO TID [facility] Last Admin: 01/07/17 05:57 Dose: 500 mg Potassium Chloride (K-Dur -) 40 meq PO DAILY [facility] Last Admin: 01/06/17 10:28 Dose: Not Given - Objective Vital Signs: Vital Signs Temperature 97.6 F 01/07/17 06:00 Pulse Rate 82 01/07/17 06:00 Respiratory Rate 20 01/07/17 06:00 Blood Pressure 118/61 01/07/17 06:00 O2 Sat by Pulse Oximetry (%) 98 01/06/17 21:00 Constitutional: Yes: No Distress, Calm, Obese Cardiovascular: Yes: Regular Rate and Rhythm Respiratory: Yes: Regular, CTA Bilaterally Gastrointestinal: Yes: Normal Bowel Sounds, Soft Musculoskeletal: Yes: WNL Extremities: Yes: WNL Neurological: Yes: Alert, Oriented Psychiatric: Yes: Alert, Oriented Labs: CBC, BMP 01/07/17 06:00 01/07/17 06:00 Assessment/Plan Problem List - Problems (1) Appendicitis with perforation Code(s): K35.2 - ACUTE APPENDICITIS WITH GENERALIZED PERITONITIS (2) Menorrhagia Code(s): N92.0 - EXCESSIVE AND FREQUENT MENSTRUATION WITH REGULAR CYCLE Qualifiers: Menorrahagia type: with irregular cycle Qualified Code(s): N92.1 - Excessive and frequent menstruation with irregular cycle (3) Anemia due to chronic blood loss Code(s): D50.0 - IRON DEFICIENCY ANEMIA SECONDARY TO BLOOD LOSS (CHRONIC) (4) Morbid obesity with BMI of 45.0-49.9, adult Code(s): E66.01 - MORBID (SEVERE) OBESITY DUE TO EXCESS CALORIES Z68.42 - BODY MASS INDEX (BMI) 45.0-49.9, ADULT (5) History of bariatric surgery Code(s): Z98.84 - BARIATRIC SURGERY STATUS plan continue oral abx for a week more rest as per primary
[2017-01-07] MEDS: POTASSIUM CHLORIDE TABS 20 MEQ TABLET.ER (FP) PO SCH (11:33)
== END 2017-01-07 14:59 | disposition home or self-care (01) | DRG 372 ==
LOC: JER 10:06 → JERBED 18:49 → INTOOBSV 18:49 → J6S 20:37 → OBSVTOIN 12-27 16:00
PROVIDERS: ADMIT Internal Medicine; ATTEND Internal Medicine
DX: K35.2 Acute appendicitis with generalized peritonitis (principal); Z68.42 Body mass index [BMI] 45.0-49.9, adult; J45.909 Unspecified asthma, uncomplicated; E66.01 Morbid (severe) obesity due to excess calories; M54.5 Low back pain; F41.0 Panic disorder [episodic paroxysmal anxiety]; F41.8 Other specified anxiety disorders; D50.0 Iron deficiency anemia secondary to blood loss (chronic); N92.1 Excessive and frequent menstruation with irregular cycle; D25.9 Leiomyoma of uterus, unspecified; N83.201 Unspecified ovarian cyst, right side; N94.6 Dysmenorrhea, unspecified; Z98.84 Bariatric surgery status; Z71.3 Dietary counseling and surveillance
CPT/HCPCS: 36415; 36430; 74176-TC; 74177-TC; 76830-TC; 80048; 80053; 81003; 81015; 84703; 85025; 85027; 86850; 86900; 86901; 86922; 87040; 87086; 93005; 93010; 99284-25; G0378; P9038; P9058; Q9967